=== PATIENT | male | born 1930 | race Caucasian/White ===

== ENCOUNTER 2016-08-16 23:51 | Inpatient (IN) | payer MEDICARE, BC ==
[2016-08-17] MEDS ORDERED: Sodium Chloride 0.9% 1,000 ML IV ONE (00:29)
[2016-08-17] MEDS ORDERED: Ondansetron 4 MG/2 ML SDV IVPUSH ONE (00:29)
[2016-08-17] MEDS ORDERED: Levofloxacin/Dextrose 5%-Water 750 MG in Premix Bag 1 BAG IV ONE (00:35)
--- NOTE | 2016-08-17 00:39 | EDM.PDOC ---
ED HPI GENERAL MEDICAL PROBLEM - General Chief Complaint: Fever Stated Complaint: FEVER Time Seen by Provider: 08/17/16 00:29 - History of Present Illness INITIAL COMMENTS - FREE TEXT/NARRATIVE: HISTORY AND PHYSICAL: History of present illness: Patient 86-year-old white male from [facility] with fever tonight reported up to 106 he said nausea vomiting he denies abdominal pain he' s had a cough denies shortness of breath chest pain he is a poor historian due to advanced age and baseline status patient has extensive past medical history please see nursing notes and detention notes which was reviewed by myself Review of systems: As per history of present illness and below otherwise all systems reviewed and negative. Past medical history: As per history of present illness and as reviewed below otherwise noncontributory. Surgical history: As per history of present illness and as reviewed below otherwise noncontributory. Social history: No reported history of drug or alcohol abuse. Family history: As per history of present illness and as reviewed below otherwise noncontributory. Physical exam: HEENT: Atraumatic, normocephalic, pupils reactive, negative for conjunctival pallor or scleral icterus, mucous membranes moist, throat clear, neck supple, nontender, trachea midline. Lungs: Coarse bilaterally with scattered rhonchi, breath sounds equal bilaterally, chest nontender. Heart: S1S2, regular, negative for clicks, rubs, or JVD. Abdomen: Soft, nondistended, protuberant no localized tenderness. Negative for masses or hepatosplenomegaly. Negative for costovertebral tenderness. Pelvis: Stable nontender. Genitourinary: Deferred. Rectal: Deferred. Extremities: Atraumatic, negative for cords or calf pain. Neurovascular unremarkable. Neuro: Awake, alert, follows commands moves all extremities limited grossly nonfocal exam Diagnostics: CBC CMP PT/INR troponin BMP blood culture x2 UA urine culture lactic acid chest x-ray EKG CT abdomen and pelvis Therapeutics: Normal saline 1 L bolus Levaquin 750 mg IV vancomycin 1 g IV Impression: Over one acute febrile illness rule out sepsis #2 vomiting Definitive disposition and diagnosis as appropriate pending reevaluation and review of above. Generalized Pain Score (Numeric/FACES): 4 - Related Data Allergies Allergy/AdvReac Type Severity Reaction Status Date / Time Iodinated Contrast Media - Allergy Anaphylactic Verified 08/16/16 23:56 Oral and Shock [Iodinated Contrast Media - IV Dye] Penicillins Allergy Anaphylactic Verified 08/16/16 23:56 Shock Home Meds: Home Meds Acetaminophen [Tylenol] 650 mg PO TID 02/26/15 [History] busPIRone HCl [Buspirone HCl] 15 mg PO BID 02/26/15 [History] Bisacodyl 10 mg RC DAILY PRN 05/01/15 [History] Calcium Citrate/Vitamin D3 [Calcium Cit-Vit D 315-200] 1 each PO BID 05/01/15 [ History] Cholecalciferol (Vitamin D3) [D3-2000] 2,000 unit PO DAILY 05/01/15 [History] Docusate Sodium [Colace] 100 mg PO BID 05/01/15 [History] Multivitamin [Daily Dalton] 1 each PO DAILY 05/01/15 [History] Polyethylene Glycol 3350 [MiraLAX] 17 gm PO BID PRN 05/01/15 [History] Lisinopril [Prinivil] 10 mg PO DAILY 06/27/15 [History] Potassium Chloride [Klor-Con M20] 20 meq PO DAILY #5 tab.er 07/05/15 [Rx] Acetaminophen [Tylenol] 650 mg PO Q4H PRN 01/13/16 [History] Citalopram [Celexa] 20 mg PO DAILY 01/13/16 [History] Warfarin [Coumadin] 4 mg PO BEDTIME 01/13/16 [History] traMADol [Ultram] 50 mg PO QID PRN 01/13/16 [History] Alum Hydrox/Mag Hydrox/Simeth [Mag-Al Plus] 15 ml PO QID PRN 08/17/16 [History] Furosemide [Lasix] 1 tab PO DAILY 08/17/16 [History] Past Medical History HEENT History: Reports: Macular degeneration Cardiovascular History: Reports: Afib, Heart Failure, Hypertension Genitourinary History: Reports: Chronic renal insuffiency, Urinary incontinence Other Genitourinary History: stage 3 kidney disease Psychiatric History: Reports: Anxiety Other Oncologic History: kidney ca Other Dermatologic History: parasthesia of skin - Past Surgical History Other Cardiovascular Surgeries/Procedures: coronary stent 2002 Other Neurological Surgeries/Procedures: 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 ED EXAM, GENERAL - Physical Exam Exam: See Below (See dictation) Course - Vital Signs Last Recorded V/S: Last Vital Signs Temp 37.4 C 08/17/16 01:59 Pulse 80 08/17/16 01:59 Resp 17 08/17/16 01:59 BP 125/66 08/17/16 01:59 Pulse Ox 96 08/17/16 01:59 - Orders/Labs/Meds Orders: Active Orders 24 hr Category Date Time Status EKG 12 Lead [EKG Documentation Completion] [RC] STAT Care 08/17/16 00:28 Active Abdomen Pelvis wo Cont [CT] Stat Exams 08/17/16 00:28 Taken Chest 1V Frontal [CR] Stat Exams 08/17/16 00:36 Taken CULTURE BLOOD [BC] Stat Lab 08/17/16 00:30 Received CULTURE BLOOD [BC] Stat Lab 08/17/16 01:25 Received Levofloxacin/Dextrose 5%-Water [Levaquin in D5W 750 MG/ Med 08/17/16 00:35 Active 150 ML] 750 mg Premix Bag 1 bag IV ONETIME Medication Orders Levofloxacin/Dextrose 750 mg/ (Premix) 150 mls @ 100 mls/hr IV ONETIME ONE Stop: 08/17/16 03:04 Last Admin: 08/17/16 01:36 Dose: 100 mls/hr Labs: Laboratory Tests 08/17/16 08/17/16 08/17/16 Range/Units 00:22 00:30 00:30 WBC 13.94 H (4.0-11.0) K/uL RBC 3.78 L (4.50-5.90) M/uL Hgb 11.6 L (13.0-17.0) g/dL Hct 36.2 L (38.0-50.0) % MCV 95.8 (80.0-98.0) fL MCH 30.7 (27.0-32.0) pg MCHC 32.0 (31.0-37.0) g/dL RDW Std Deviation 50.5 (28.0-62.0) fl RDW Coeff of Donovan 14 (11.0-15.0) % Plt Count 190 (150-400) K/uL MPV 9.20 (7.40-12.00) fL Add Manual Diff YES Neutrophils % (Manual) 76 (48.0-80.0) % Band Neutrophils % 17 % Lymphocytes % (Manual) 3 L (16.0-40.0) % Monocytes % (Manual) 4 (0.0-15.0) % Nucleated RBC % 0.0 /100WBC Absolute Seg Neuts 10.6 Band Neutrophils # 2.4 Lymphocytes # (Manual) 0.4 Monocytes # (Manual) 0.6 Nucleated RBCs # 0 K/uL INR (0.86-1.11) Lactate (0.20-2.00) mmol/L Sodium 137 (136-146) mmol/L Potassium 3.9 (3.5-5.1) mmol/L Chloride 101 (98-110) mmol/L Carbon Dioxide 21 (21-31) mmol/L BUN 22 (6.0-23.0) mg/dL Creatinine 1.5 (0.6-1.5) mg/dL Est Cr Clr Drug Dosing TNP Estimated GFR (MDRD) 44.3 ml/min Glucose 161 H (60-110) mg/dL Calcium 9.4 (8.8-10.8) mg/dL Total Bilirubin 1.1 (0.1-1.5) mg/dL AST 21 (5-40) IU/L ALT 13 (8-54) IU/L Alkaline Phosphatase 100 (40-150) CK-MB (CK-2) (0-6.6) ng/ml Troponin I (0.0-0.29) NG/ML B-Natriuretic Peptide (<100) PG/ML Total Protein 7.2 (6.0-8.0) g/dL Albumin 3.8 (3.4-4.8) g/dL Globulin 3.4 (2.0-3.5) g/dL Albumin/Globulin Ratio 1.1 L (1.3-2.8) Urine Color YELLOW Urine Appearance CLEAR Urine pH 5.5 (5.0-8.0) Ur Specific Blandford 1.020 (1.001-1.035) Urine Protein NEGATIVE (NEGATIVE) mg/dL Urine Glucose (UA) NEGATIVE (NEGATIVE) mg/dL Urine Ketones NEGATIVE (NEGATIVE) mg/dL Urine Occult Blood SMALL H (NEGATIVE) Urine Nitrite NEGATIVE (NEGATIVE) Urine Bilirubin NEGATIVE (NEGATIVE) Urine Urobilinogen 0.2 (<2.0) EU/dL Ur Leukocyte Esterase NEGATIVE (NEGATIVE) Urine RBC 1-6 (0-2/HPF) Urine WBC 0-1 (0-5/HPF) Ur Epithelial Cells OCCASIONAL (NONE-FEW) Amorphous Sediment LIGHT (NEGATIVE) Urine Bacteria RARE (NEGATIVE) Urine Mucus LIGHT (NONE-MOD) 08/17/16 08/17/16 08/17/16 Range/Units 00:30 00:30 00:30 WBC (4.0-11.0) K/uL RBC (4.50-5.90) M/uL Hgb (13.0-17.0) g/dL Hct (38.0-50.0) % MCV (80.0-98.0) fL MCH (27.0-32.0) pg MCHC (31.0-37.0) g/dL RDW Std Deviation (28.0-62.0) fl RDW Coeff of Donovan (11.0-15.0) % Plt Count (150-400) K/uL MPV (7.40-12.00) fL Add Manual Diff Neutrophils % (Manual) (48.0-80.0) % Band Neutrophils % % Lymphocytes % (Manual) (16.0-40.0) % Monocytes % (Manual) (0.0-15.0) % Nucleated RBC % /100WBC Absolute Seg Neuts Band Neutrophils # Lymphocytes # (Manual) Monocytes # (Manual) Nucleated RBCs # K/uL INR (0.86-1.11) Lactate 1.6 (0.20-2.00) mmol/L Sodium (136-146) mmol/L Potassium (3.5-5.1) mmol/L Chloride (98-110) mmol/L Carbon Dioxide (21-31) mmol/L BUN (6.0-23.0) mg/dL Creatinine (0.6-1.5) mg/dL Est Cr Clr Drug Dosing Estimated GFR (MDRD) ml/min Glucose (60-110) mg/dL Calcium (8.8-10.8) mg/dL Total Bilirubin (0.1-1.5) mg/dL AST (5-40) IU/L ALT (8-54) IU/L Alkaline Phosphatase (40-150) CK-MB (CK-2) (0-6.6) ng/ml Troponin I < 0.10 (0.0-0.29) NG/ML B-Natriuretic Peptide 346 H (<100) PG/ML Total Protein (6.0-8.0) g/dL Albumin (3.4-4.8) g/dL Globulin (2.0-3.5) g/dL Albumin/Globulin Ratio (1.3-2.8) Urine Color Urine Appearance Urine pH (5.0-8.0) Ur Specific Blandford (1.001-1.035) Urine Protein (NEGATIVE) mg/dL Urine Glucose (UA) (NEGATIVE) mg/dL Urine Ketones (NEGATIVE) mg/dL Urine Occult Blood (NEGATIVE) Urine Nitrite (NEGATIVE) Urine Bilirubin (NEGATIVE) Urine Urobilinogen (<2.0) EU/dL Ur Leukocyte Esterase (NEGATIVE) Urine RBC (0-2/HPF) Urine WBC (0-5/HPF) Ur Epithelial Cells (NONE-FEW) Amorphous Sediment (NEGATIVE) Urine Bacteria (NEGATIVE) Urine Mucus (NONE-MOD) 08/17/16 08/17/16 Range/Units 00:30 01:25 WBC (4.0-11.0) K/uL RBC (4.50-5.90) M/uL Hgb (13.0-17.0) g/dL Hct (38.0-50.0) % MCV (80.0-98.0) fL MCH (27.0-32.0) pg MCHC (31.0-37.0) g/dL RDW Std Deviation (28.0-62.0) fl RDW Coeff of Donovan (11.0-15.0) % Plt Count (150-400) K/uL MPV (7.40-12.00) fL Add Manual Diff Neutrophils % (Manual) (48.0-80.0) % Band Neutrophils % % Lymphocytes % (Manual) (16.0-40.0) % Monocytes % (Manual) (0.0-15.0) % Nucleated RBC % /100WBC Absolute Seg Neuts Band Neutrophils # Lymphocytes # (Manual) Monocytes # (Manual) Nucleated RBCs # K/uL INR 1.50 H (0.86-1.11) Lactate (0.20-2.00) mmol/L Sodium (136-146) mmol/L Potassium (3.5-5.1) mmol/L Chloride (98-110) mmol/L Carbon Dioxide (21-31) mmol/L BUN (6.0-23.0) mg/dL Creatinine (0.6-1.5) mg/dL Est Cr Clr Drug Dosing Estimated GFR (MDRD) ml/min Glucose (60-110) mg/dL Calcium (8.8-10.8) mg/dL Total Bilirubin (0.1-1.5) mg/dL AST (5-40) IU/L ALT (8-54) IU/L Alkaline Phosphatase (40-150) CK-MB (CK-2) 0.4 (0-6.6) ng/ml Troponin I (0.0-0.29) NG/ML B-Natriuretic Peptide (<100) PG/ML Total Protein (6.0-8.0) g/dL Albumin (3.4-4.8) g/dL Globulin (2.0-3.5) g/dL Albumin/Globulin Ratio (1.3-2.8) Urine Color Urine Appearance Urine pH (5.0-8.0) Ur Specific Blandford (1.001-1.035) Urine Protein (NEGATIVE) mg/dL Urine Glucose (UA) (NEGATIVE) mg/dL Urine Ketones (NEGATIVE) mg/dL Urine Occult Blood (NEGATIVE) Urine Nitrite (NEGATIVE) Urine Bilirubin (NEGATIVE) Urine Urobilinogen (<2.0) EU/dL Ur Leukocyte Esterase (NEGATIVE) Urine RBC (0-2/HPF) Urine WBC (0-5/HPF) Ur Epithelial Cells (NONE-FEW) Amorphous Sediment (NEGATIVE) Urine Bacteria (NEGATIVE) Urine Mucus (NONE-MOD) Meds: Medications Generic Name Dose Route Start Last Admin Trade Name Freq PRN Reason Stop Dose Admin Levofloxacin/Dextrose 750 mg/ 150 mls @ 100 mls/hr 08/17/16 00:35 08/17/16 01 :36 Premix IV 08/17/16 03:04 100 mls/hr ONETIME ONE Administration Discontinued Medications Generic Name Dose Route Start Last Admin Trade Name Ceferino PRN Reason Stop Dose Admin Sodium Chloride 1,000 mls @ 999 mls/hr 08/17/16 00:29 08/17/16 00:30 Normal Saline IV 08/17/16 01:29 999 mls/hr .Bolus ONE Administration Vancomycin HCl 1 gm/ Sodium 250 mls @ 250 mls/hr 08/17/16 00:34 08/17/16 00: 40 Chloride IV 08/17/16 01:33 250 mls/hr ONETIME ONE Administration Ondansetron HCl 4 mg 08/17/16 00:29 08/17/16 00:37 Zofran IVPUSH 08/17/16 00:30 4 mg ONETIME ONE Administration Departure - Departure Time of Disposition: 03:14 Disposition: Admitted As Inpatient 65 Condition: good Clinical Impression: Fever Qualifiers: Fever type: other Qualified Code(s): R50.81 - Fever presenting with conditions classified elsewhere Referrals: PCP,Unknown [Primary Care Provider] - Forms: ED Department Discharge - My Orders Last 24 Hours: My Active Orders 08/17/16 00:28 EKG 12 Lead [EKG Documentation Completion] [RC] STAT Abdomen Pelvis wo Cont [CT] Stat 08/17/16 00:30 CULTURE BLOOD [BC] Stat 08/17/16 00:35 Levofloxacin/Dextrose 5%-Water [Levaquin in D5W 750 MG/150 ML] 750 mg Premix Bag 1 bag IV ONETIME 08/17/16 00:36 Chest 1V Frontal [CR] Stat 08/17/16 01:25 CULTURE BLOOD [BC] Stat - Assessment/Plan Last 24 Hours: My Active Orders 08/17/16 00:28 EKG 12 Lead [EKG Documentation Completion] [RC] STAT Abdomen Pelvis wo Cont [CT] Stat 08/17/16 00:30 CULTURE BLOOD [BC] Stat 08/17/16 00:35 Levofloxacin/Dextrose 5%-Water [Levaquin in D5W 750 MG/150 ML] 750 mg Premix Bag 1 bag IV ONETIME 08/17/16 00:36 Chest 1V Frontal [CR] Stat 08/17/16 01:25 CULTURE BLOOD [BC] Stat
[2016-08-17 01:05] LABS: CHLORIDE,CL 101 mmol/L (98-110); SODIUM,NA 137 mmol/L (136-146)
[2016-08-17] MEDS ORDERED: Ondansetron 4 MG/2 ML SDV IVPUSH PRN (04:41)
[2016-08-17] MEDS ORDERED: Albuterol/Ipratropium 3.0-0.5 MG/3 ML Neb Soln NEB PRN (04:47)
[2016-08-17] MEDS: traMADol 50 MG Tab PO SCH ×4 (06:20→23:27)
[2016-08-17] MEDS: Acetaminophen 325 MG Tab PO SCH ×3 (10:17→23:12)
--- NOTE | 2016-08-17 10:35 | PCM.HP ---
H&P History of Present Illness - General Admit Problem/Dx: Admission Diagnosis/Problem Admission Diagnosis/Problem Fever - History of Present Illness Initial Comments - Free Text/Narative: 86 yo male with pmh of CAD, atrial fibrillation, and cholilithiasis. He was hospitalized last year for cholecystitis which was treated conservatively with antibiotics. He presents from [facility] with complaints of nausea, vomiting, chills and fever of 106 degrees Fahrenheit. He denies any abdominal pain, diarrhea, constipation, shortness of breath or chest pain. He was seen in the ED and noted to have atemp of 104. CXR, and UA was unremarkable. WBC 13,[address] L[address] normal. CT abdomen reportedModerate bilateral renal pelvicaliectasis and hydroureter, nonobstructing stones within the left renal pelvis, mild distention of the gallbladder with tiny gallstones, large amount of stool present. Radiologist recommended outpatient MRI for assessment of irregular hypodense lesion in the lower pole of the right kidney. Patient received vancomycin and levaquin in the ED and ED physcian recommended admission to rule out sepsis. Generalized Pain Score (Numeric/FACES): 4 hands Pain Score (Numeric/FACES): 9 - Related Data Allergies/Adverse Reactions: Allergies Allergy/AdvReac Type Severity Reaction Status Date / Time Iodinated Contrast Media - Allergy Anaphylactic Verified 08/16/16 23:56 Oral and Shock [Iodinated Contrast Media - IV Dye] Penicillins Allergy Anaphylactic Verified 08/16/16 23:56 Shock Home Medications: Home Meds Acetaminophen [Tylenol] 650 mg PO TID 02/26/15 [History] busPIRone HCl [Buspirone HCl] 15 mg PO BID 02/26/15 [History] Bisacodyl 10 mg RC DAILY PRN 05/01/15 [History] Calcium Citrate/Vitamin D3 [Calcium Cit-Vit D 315-200] 1 each PO BID 05/01/15 [ History] Cholecalciferol (Vitamin D3) [D3-2000] 2,000 unit PO DAILY 05/01/15 [History] Docusate Sodium [Colace] 100 mg PO BID 05/01/15 [History] Multivitamin [Daily Dalton] 1 each PO DAILY 05/01/15 [History] Polyethylene Glycol 3350 [MiraLAX] 17 gm PO BID PRN 05/01/15 [History] Lisinopril [Prinivil] 10 mg PO DAILY 06/27/15 [History] Acetaminophen [Tylenol] 650 mg PO Q4H PRN 01/13/16 [History] Citalopram [Celexa] 20 mg PO DAILY 01/13/16 [History] Warfarin [Coumadin] 4 mg PO BEDTIME 01/13/16 [History] traMADol [Ultram] 50 mg PO QID 01/13/16 [History] Alum Hydrox/Mag Hydrox/Simeth [Mag-Al Plus] 15 ml PO QID PRN 08/17/16 [History] Furosemide [Lasix] 80 mg PO DAILY 08/17/16 [History] Potassium Chloride [Klor-Con M20] 20 meq PO DAILY 08/18/16 [History] Past Medical History HEENT History: Reports: Macular degeneration Cardiovascular History: Reports: Afib, Heart Failure, Hypertension, Other (see below) Other Cardiovascular History: On Coumadin Respiratory History: Reports: Other (see below) Other Respiratory History: Hx of Acute upper respiratory tract infection Gastrointestinal History: Reports: None Genitourinary History: Reports: Chronic renal insuffiency, Urinary incontinence Other Genitourinary History: stage 3 kidney disease Musculoskeletal History: Reports: Osteoarthritis Neurological History: Reports: None Psychiatric History: Reports: Anxiety Endocrine/Metabolic History: Reports: None Hematologic History: Reports: None Immunologic History: Reports: None Oncologic (Cancer) History: Reports: Bladder Other Oncologic History: kidney ca Other Dermatologic History: parasthesia of skin - Past Surgical History Other Cardiovascular Surgeries/Procedures: coronary stent 2002 GI Surgical History: Reports: None Male Surgical History: Reports: None Endocrine Surgical History: Reports: None Other Neurological Surgeries/Procedures: 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,4,5,6 Musculoskeletal Surgical History: Reports: Hip replacement, Other (see below) Other Musculoskeletal Surgeries/Procedures:: Spinal surgery Oncologic Surgical History: Reports: None Social & Family History - Family History Family Medical History: Noncontributory Cardiac: Reports: Hypertension, [place] - Tobacco Use Smoking Status *Q: Never Smoker Second Hand Smoke Exposure: No - Recreational Drug Use Recreational Drug Use: No H&P Review of Systems - Review of Systems: Review Of Systems: See Below General: Reports: no symptoms HEENT: Reports: no symptoms Pulmonary: Reports: no symptoms Cardiovascular: Reports: no symptoms Gastrointestinal: Reports: No symptoms Genitourinary: Reports: no symptoms Musculoskeletal: Reports: no symptoms Skin: Reports: no symptoms Psychiatric: Reports: no symptoms Neurological: Reports: no symptoms Hematologic/Lymphatic: Reports: no symptoms Immunologic: Reports: no symptoms Exam - Exam Exam: See Below - Vital Signs Vital Signs: Last Vital Signs Temp 38.0 C 08/17/16 07:45 Pulse 88 08/17/16 07:45 Resp 16 08/17/16 07:45 BP 127/64 08/17/16 07:45 Pulse Ox 96 08/17/16 07:45 Weight: 100.5 kg - Exam General: alert, cooperative HEENT: Mucosa moist & pink Neck: supple, trachea midline. No: JVD Lungs: Clear to auscultation, Normal respiratory effort Cardiovascular: regular rate, regular rhythm Abdomen: normal bowel sounds, soft, tenderness (RUQ) Extremities: normal inspection Skin: warm, dry, intact Neurological: cranial nerves intact, normal speech - Patient Data Result Diagrams: 08/18/16 06:58 08/18/16 06:58 *Q Meaningful Use (ADM) - VTE *Q VTE Criteria *Q: - Stroke *Q Stroke Criteria *Q: - AMI *Q AMI Criteria *Q: Problem List Initiated/Reviewed/Updated: Yes Orders Last 24hrs: Active Orders 24 hr Category Date Time Status Antiembolic Devices [RC] PER UNIT ROUTINE Care 08/17/16 10:27 Ordered Intake and Output [RC] QSHIFT Care 08/17/16 10:26 Ordered Oxygen Therapy [RC] PRN Care 08/17/16 10:25 Ordered RT Aerosol Therapy [RC] ASDIRECTED Care 08/17/16 04:48 Active Up With Assistance [RC] ASDIRECTED Care 08/17/16 10:25 Ordered VTE/DVT Education [RC] PER UNIT ROUTINE Care 08/17/16 10:25 Ordered Vital Signs [RC] Q4H Care 08/17/16 10:25 Ordered Clear Liquid Diet [DIET] Diet 08/17/16 Lunch Ordered Regular Diet [DIET] Diet 08/17/16 Breakfast Active Abdomen Ltd [US] Routine Exams 08/17/16 10:24 Ordered CBC WITH AUTO DIFF [HEME] AM Lab 08/18/16 05:11 Ordered CBC WITH AUTO DIFF [HEME] AM Lab 08/19/16 05:11 Ordered COMPREHENSIVE METABOLIC PN,CMP [CHEM] AM Lab 08/18/16 05:11 Ordered COMPREHENSIVE METABOLIC PN,CMP [CHEM] AM Lab 08/19/16 05:11 Ordered CULTURE URINE [RM] Routine Lab 08/17/16 10:22 Uncollected Acetaminophen [Tylenol] Med 08/17/16 04:43 Active 650 mg PO Q4H PRN Acetaminophen [Tylenol] Med 08/17/16 08:00 Active 650 mg PO TID Albuterol/Ipratropium [DuoNeb 3.0-0.5 MG/3 ML] Med 08/17/16 04:47 Active 3 ml NEB Q4HRRT PRN Citalopram [Celexa] Med 08/18/16 09:00 Ordered 20 mg PO DAILY Heparin Sodium Med 08/17/16 21:00 Ordered 5,000 units SUBCUT Q12HR Levofloxacin/Dextrose 5%-Water [Levaquin in D5W 750 MG/ Med 08/18/16 00:30 Ordered 150 ML] 750 mg Premix Bag 1 bag IV Q24H Ondansetron [Zofran] Med 08/17/16 04:41 Active 4 mg IVPUSH Q4H PRN Warfarin Med 08/17/16 21:00 Ordered 4 mg PO BEDTIME metroNIDAZOLE/Normal Saline [Flagyl 500 MG in NS 100 ML Med 08/17/16 12:00 Ordered ] 500 mg Premix Bag 1 bag IV QID traMADol [Ultram] Med 08/17/16 06:00 Active 50 mg PO QID Sequential Compression Device [OM.PC] Per Unit Routine Oth 08/17/16 10:26 Ordered Resuscitation Status Routine Resus Stat 08/17/16 10:25 Ordered Medication Orders Acetaminophen (Tylenol) 650 mg PO TID RUPINDER Last Admin: 08/17/16 10:17 Dose: 650 mg Acetaminophen (Tylenol) 650 mg PO Q4H PRN PRN Reason: Pain/Fever Albuterol/Ipratropium (Duoneb 3.0-0.5 Mg/3 Ml) 3 ml NEB Q4HRRT PRN PRN Reason: Wheezing Last Admin: 08/17/16 05:22 Dose: 3 ml Citalopram Hydrobromide (Celexa) 20 mg PO DAILY RUPINDER Levofloxacin/Dextrose 750 mg/ (Premix) 150 mls @ 100 mls/hr IV Q24H [facility] Metronidazole 500 mg/ Premix 100 mls @ 100 mls/hr IV QID [facility] Non-Formulary Medication (Warfarin) 4 mg PO BEDTIME RUPINDER Ondansetron HCl (Zofran) 4 mg IVPUSH Q4H PRN PRN Reason: Nausea/Vomiting Tramadol HCl (Ultram) 50 mg PO QID [facility] Last Admin: 08/17/16 06:20 Dose: 50 mg Assessment/Plan Comment:: 86 yo male admitted with fevers, nausea, vomiting and RUQ abdominal tenderness. This could be recurrent cholecystitis. Will treat with levaquin and flagyl and obtain RUQ ultrasound. Blood cultures are pending.
[2016-08-17] MEDS: metroNIDAZOLE/Normal Saline 500 MG in Premix Bag 1 BAG IV SCH ×3 (12:54→23:27)
[2016-08-17] MEDS ORDERED: Bisacodyl 10 MG Supp RECTAL PRN (16:15)
[2016-08-17] MEDS ORDERED: Polyethylene Glycol 3350 Powder 17 GM Packet PO PRN (16:15)
[2016-08-17] MEDS: Acetaminophen 325 MG Tab PO PRN (19:28)
[2016-08-17] MEDS: Warfarin 2 MG Tab PO SCH (20:01)
[2016-08-17] MEDS: Docusate Sodium 100 MG Cap PO SCH (20:01)
[2016-08-17] MEDS ORDERED: Heparin Sodium 5,000 Units/ML Vial SUBCUT SCH (21:00)
[2016-08-18] MEDS ORDERED: Levofloxacin/Dextrose 5%-Water 750 MG in Premix Bag 1 BAG IV SCH ×2 (00:30→10:30)
[2016-08-18] MEDS: Acetaminophen 325 MG Tab PO PRN ×2 (03:38→10:00)
[2016-08-18] MEDS: Acetaminophen 325 MG Tab PO SCH ×3 (05:07→21:01)
[2016-08-18] MEDS: traMADol 50 MG Tab PO SCH ×4 (05:33→23:57)
[2016-08-18] MEDS: metroNIDAZOLE/Normal Saline 500 MG in Premix Bag 1 BAG IV SCH ×4 (05:40→23:00)
[2016-08-18] MEDS: Citalopram 20 MG Tab PO SCH (09:08)
[2016-08-18] MEDS: Docusate Sodium 100 MG Cap PO SCH ×2 (09:08→21:01)
--- NOTE | 2016-08-18 10:58 | PCM.PN ---
- General Info Date of Service: 08/18/16 - Review of Systems Systems Review Comment:: denies any fevers, reports chronic upper arm pain, denies any abdominal pain or nausea. - Patient Data Vitals - most recent: Last Vital Signs Temp 37.1 C 08/18/16 08:00 Pulse 65 08/18/16 08:00 Resp 18 08/18/16 08:00 BP 110/64 08/18/16 08:00 Pulse Ox 91 L 08/18/16 08:00 Weight - most recent: 100.5 kg I&O - last 24 hours: Intake & Output 08/17/16 08/18/16 08/18/16 22:59 06:59 14:59 Intake Total 1658 1230 Output Total 407 Balance 1251 1230 Lab Results last 24 hrs: Laboratory Results - last 24 hr 08/18/16 08/18/16 Range/Units 06:58 06:58 WBC 8.68 (4.0-11.0) K/uL RBC 3.07 L (4.50-5.90) M/uL Hgb 9.6 L (13.0-17.0) g/dL Hct 29.6 L (38.0-50.0) % MCV 96.4 (80.0-98.0) fL MCH 31.3 (27.0-32.0) pg MCHC 32.4 (31.0-37.0) g/dL RDW Std Deviation 50.9 (28.0-62.0) fl RDW Coeff of Donovan 15 (11.0-15.0) % Plt Count 157 (150-400) K/uL MPV 9.10 (7.40-12.00) fL Neut % (Auto) 78.3 (48.0-80.0) % Lymph % (Auto) 9.7 L (16.0-40.0) % [place]kin % (Auto) 11.3 (0.0-15.0) % Eos % (Auto) 0.7 (0.0-7.0) % Baso % (Auto) 0.0 (0.0-1.5) % Neut # 6.8 H (1.4-5.7) K/uL Lymph # 0.8 (0.6-2.4) K/uL Pitkin # 1.0 H (0.0-0.8) K/uL Eos # 0.1 (0.0-0.7) K/uL Baso # 0.0 (0.0-0.1) K/uL Nucleated RBC % 0.0 /100WBC Nucleated RBCs # 0 K/uL Sodium 138 (136-146) mmol/L Potassium 4.2 (3.5-5.1) mmol/L Chloride 103 (98-110) mmol/L Carbon Dioxide 27 (21-31) mmol/L BUN 26 H (6.0-23.0) mg/dL Creatinine 1.4 (0.6-1.5) mg/dL Est Cr Clr Drug Dosing 39.43 mL/min Estimated GFR (MDRD) 47.9 ml/min Glucose 100 (60-110) mg/dL Calcium 9.2 (8.8-10.8) mg/dL Total Bilirubin 0.5 (0.1-1.5) mg/dL AST 16 (5-40) IU/L ALT 8 (8-54) IU/L Alkaline Phosphatase 70 (40-150) Total Protein 5.7 L (6.0-8.0) g/dL Albumin 3.0 L (3.4-4.8) g/dL Globulin 2.7 (2.0-3.5) g/dL Albumin/Globulin Ratio 1.1 L (1.3-2.8) Med Orders - Current: Current Medications Acetaminophen (Tylenol) 650 mg PO TID [facility] Last Admin: 08/18/16 05:07 Dose: Not Given Acetaminophen (Tylenol) 650 mg PO Q4H PRN PRN Reason: Pain/Fever Last Admin: 08/18/16 10:00 Dose: 650 mg Albuterol/Ipratropium (Duoneb 3.0-0.5 Mg/3 Ml) 3 ml NEB Q4HRRT PRN PRN Reason: Wheezing Last Admin: 08/17/16 05:22 Dose: 3 ml Bisacodyl (Dulcolax) 10 mg RECTAL DAILY PRN PRN Reason: Constipation Citalopram Hydrobromide (Celexa) 20 mg PO DAILY [facility] Last Admin: 08/18/16 09:08 Dose: 20 mg Docusate Sodium (Colace) 100 mg PO BID [facility] Last Admin: 08/18/16 09:08 Dose: 100 mg Metronidazole 500 mg/ Premix 100 mls @ 100 mls/hr IV QID [facility] Last Admin: 08/18/16 05:40 Dose: 100 mls/hr Vancomycin HCl 1,500 mg/ (Sodium Chloride) 500 mls @ 333.333 mls/hr IV Q12H [facility] Last Admin: 08/18/16 02:24 Dose: 333.333 mls/hr Levofloxacin/Dextrose 750 mg/ (Premix) 150 mls @ 100 mls/hr IV Q48H [facility] Ondansetron HCl (Zofran) 4 mg IVPUSH Q4H PRN PRN Reason: Nausea/Vomiting Polyethylene Glycol (Miralax) 17 gm PO BID PRN PRN Reason: Constipation Tramadol HCl (Ultram) 50 mg PO QID [facility] Last Admin: 08/18/16 05:33 Dose: 50 mg Vancomycin HCl (Pharmacy To Dose - Vancomycin) 1 dose .XX ASDIRECTED [facility] Warfarin Sodium (Coumadin) 4 mg PO BEDTIME [facility] Last Admin: 08/17/16 20:01 Dose: 4 mg Discontinued Medications Heparin Sodium (Porcine) (Heparin Sodium) 5,000 units SUBCUT Q12HR [facility] Sodium Chloride (Normal Saline) 1,000 mls @ 999 mls/hr IV .Bolus ONE Stop: 08/17/16 01:29 Last Admin: 08/17/16 00:30 Dose: 999 mls/hr Levofloxacin/Dextrose 750 mg/ (Premix) 150 mls @ 100 mls/hr IV ONETIME ONE Stop: 08/17/16 03:04 Last Admin: 08/17/16 01:36 Dose: 100 mls/hr Vancomycin HCl 1 gm/ Sodium (Chloride) 250 mls @ 250 mls/hr IV ONETIME ONE Stop: 08/17/16 01:33 Last Admin: 08/17/16 00:40 Dose: 250 mls/hr Levofloxacin/Dextrose 750 mg/ (Premix) 150 mls @ 100 mls/hr IV Q24H [facility] Last Admin: 08/18/16 00:48 Dose: 100 mls/hr Vancomycin HCl 1,250 mg/ (Sodium Chloride) 250 mls @ 166.667 mls/hr IV Q12H [facility] Last Admin: 08/17/16 14:31 Dose: Not Given Ondansetron HCl (Zofran) 4 mg IVPUSH ONETIME ONE Stop: 08/17/16 00:30 Last Admin: 08/17/16 00:37 Dose: 4 mg - Exam General: alert, oriented Lungs: Clear to auscultation, Normal respiratory effort Cardiovascular: regular rate, regular rhythm Abdomen: bowel sounds present, soft, no tenderness, no distension Extremities: no edema Skin: warm, dry, intact Neurological: no new focal deficit - Problem List Review Problem List Initiated/Reviewed/Updated: Yes - My Orders Last 24 Hours: My Active Orders 08/17/16 10:24 Abdomen Ltd [US] Routine 08/17/16 10:25 Oxygen Therapy [RC] PRN Up With Assistance [RC] ASDIRECTED VTE/DVT Education [RC] PER UNIT ROUTINE Vital Signs [RC] Q4H Resuscitation Status Routine 08/17/16 10:26 Intake and Output [RC] QSHIFT Sequential Compression Device [OM.PC] Per Unit Routine 08/17/16 10:27 Antiembolic Devices [RC] PER UNIT ROUTINE 08/17/16 12:00 metroNIDAZOLE/Normal Saline [Flagyl 500 MG in NS 100 ML] 500 mg Premix Bag 1 bag IV QID 08/17/16 12:15 Vancomycin Pharmacy to Dose [Pharmacy to Dose - Vancomycin] 1 dose .XX ASDIRECTED 08/17/16 12:30 Vancomycin 1,500 mg Sodium Chloride 0.9% [Normal Saline] 500 ml IV Q12H 08/17/16 13:10 Communication Order [RC] ROUTINE 08/17/16 16:15 Bisacodyl [Dulcolax] 10 mg RECTAL DAILY PRN Polyethylene Glycol 3350 [MiraLAX] 17 gm PO BID PRN 08/17/16 21:00 Docusate Sodium [Colace] 100 mg PO BID Warfarin [Coumadin] 4 mg PO BEDTIME 08/17/16 Lunch Clear Liquid Diet [DIET] 08/18/16 09:00 Citalopram [Celexa] 20 mg PO DAILY 08/18/16 10:47 Ear Irrigation [RC] ASDIRECTED 08/18/16 23:30 VANCOMYCIN TROUGH [CHEM] Routine 08/19/16 05:11 CBC WITH AUTO DIFF [HEME] AM COMPREHENSIVE METABOLIC PN,CMP [CHEM] AM 08/19/16 05:30 INR,PT,PROTHROMBIN TIME [COAG] DAILY 08/20/16 00:30 Levofloxacin/Dextrose 5%-Water [Levaquin in D5W 750 MG/150 ML] 750 mg Premix Bag 1 bag IV Q48H 08/20/16 05:30 INR,PT,PROTHROMBIN TIME [COAG] DAILY 08/21/16 05:30 INR,PT,PROTHROMBIN TIME [COAG] DAILY 08/22/16 05:30 INR,PT,PROTHROMBIN TIME [COAG] DAILY 08/23/16 05:30 INR,PT,PROTHROMBIN TIME [COAG] DAILY - Plan Plan:: 86 yo male presented with fevers, nausea, vomiting and RUQ abdominal tenderness. Blood cultures are growing gram positive bacteria. Vancomycin started yesterday. Will continue levaquin and flagyl for possible recurrent cholecystitis.
[2016-08-18] MEDS ORDERED: Carbamide Peroxide 6.5% Otic Soln 15 ML Bottle EARBOTH PRN (11:17)
[2016-08-18] MEDS: Warfarin 2 MG Tab PO SCH (21:01)
--- NOTE | 2016-08-18 21:10 | CR ---
EXAM DATE: 08/17/16 PATIENT'S AGE: 86 Patient: JAMES HURD Facility: [place], [place] Site . Site : 1930 Study: XRay Chest [id number]/12/2017 1:10:47 AM Ordering Physician: Stella Parikh Final Report: INDICATION: Shortness of breath TECHNIQUE: Chest radiograph 1 view COMPARISON: 01/12/2016. FINDINGS: Cardiovascular and mediastinum: The heart silhouette is normal in size and morphology. The mediastinum is normal in appearance. Lungs and pleural spaces: Both lungs are unremarkable in appearance. No sign of pleural effusion seen. No pneumothorax is identified. 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 Multiple well circumscribed joint bodies are noted surrounding the right glenohumeral joint without interval change. IMPRESSION: 1. No acute cardiopulmonary disease is seen. Dictated by Paulo Pena MD @ 08/17/2016 1:12:40 AM Dictated by: Paulo Pena MD @ 08/17/2016 01:12:43 (Electronic Signature) Report Signed by Proxy and Original Signed Document filed in the Medical Record. [facility] SYSTEMJazmin
--- NOTE | 2016-08-18 21:11 | CT ---
EXAM DATE: 08/17/16 PATIENT'S AGE: 86 Patient: JAMES HURD Facility: [place], [place] Site . Site : 1930 Study: CT Abdomen/Pelvis [id number]/12/2017 1:16:56 AM Ordering Physician: Stella Parikh Final Report: INDICATION: Fever, vomiting TECHNIQUE: CT abdomen and pelvis without i.v. contrast. Coronal and sagittal reformats were obtained. COMPARISON: 01/12/2016 FINDINGS: Lower chest: Moderate coronary artery atherosclerotic calcifications are noted. Mild ground-glass opacities are present with atelectasis in the lower lobes, likely due to senescent fibrosis. Mild anemia is present with the cardiac chambers appearing lucent with respect to the myocardium. Liver: Unremarkable. Spleen: Unremarkable. Pancreas: Unremarkable. Gallbladder and bile ducts: The gallbladder is distended measuring 5.6 cm in diameter and has tiny layering gallstones seen. Kidneys: There is an irregular hypodense lesion seen in the lower pole of the right kidney that measures 2 cm in diameter. Moderate bilateral renal pelvic caliectasis and mild hydroureter seen. There are tiny dependent, nonobstructing stone seen in the distal left ureter on image 127 and within the dependent left renal pelvis on image 65. Adrenal glands: Unremarkable. GI tract: And large amount of stool is present within the rectal vault. The appendix is normal in appearance and size. Vascular: Unremarkable. Lymph nodes: Unremarkable. Miscellaneous: Unremarkable. No pneumoperitoneum is seen. No significant ascites is noted. Pelvic Organs: Unremarkable. Evaluation of the pelvis is limited by beam hardening artifacts from the patient`s bilateral hip prosthesis. Bones: Moderate levoscoliosis is noted with associated facet arthritis and degenerative disc disease. IMPRESSION: 1. Moderate bilateral renal pelvicaliectasis and hydroureter seen. This may be due to prior obstruction or vesicoureteral reflux. 2. Tiny milk of calcium or layering nonobstructing stones seen within the left renal pelvis and distal left ureter seen. 3. Mild distention of the gallbladder with tiny gallstones noted without interval change. 4. Large amount of stool is present in the rectal vault. Correlation with physical exam recommended to exclude fecal impaction. 5. There is an irregular hypodense lesion in the lower pole of the right kidney. Assessment with outpatient contrast-enhanced CT or MRI is recommended. Dictated by Paulo Pena MD @ 08/17/2016 1:28:56 AM Dictated by: Paulo Pena MD @ 08/17/2016 01:29:00 (Electronic Signature) Report Signed by Proxy and Original Signed Document filed in the Medical Record. MTDJazmin
--- NOTE | 2016-08-18 21:26 | US ---
EXAM DATE: 08/17/16 PATIENT'S AGE: 86 Patient: JAMES HURD Facility: [place], [place] Site . Site : 1930 Study: US Abdomen [id number]/12/2017 1:22:22 PM Ordering Physician: Gutierrez Cordero Final Report: CLINICAL HISTORY: Cholecystitis FINDINGS: The liver is enlarged measuring 17.8 cm. The visualized portions of the pancreas appears normal. Multiple stones and possible sludge within the gallbladder. Negative sonographic Zuniga sign. The gallbladder wall measures 3 mm in thickness. The common bile duct measures 3 mm in size within the alyssa hepatis. right kidney measures 9.8 cm in length . Right moderate hydronephrosis. No obstructing stones can be visualized. IMPRESSION: : 1. Cholelithiasis and possible sludge within the gallbladder. No definite sonographic findings for acute cholecystitis. 2. Moderate right-sided hydronephrosis. 3. Mild hepatomegaly. Dictated by Luciana Drake MD @ Aug 18 2016 8:33AM (Electronic Signature) Report Signed by Proxy and Original Signed Document filed in the Medical Record. MTDD
[2016-08-19] MEDS: traMADol 50 MG Tab PO SCH ×3 (05:40→18:34)
[2016-08-19] MEDS: Acetaminophen 325 MG Tab PO SCH ×3 (05:40→21:44)
[2016-08-19] MEDS: metroNIDAZOLE/Normal Saline 500 MG in Premix Bag 1 BAG IV SCH (05:40)
[2016-08-19] MEDS: Docusate Sodium 100 MG Cap PO SCH ×2 (09:28→21:44)
[2016-08-19] MEDS: Citalopram 20 MG Tab PO SCH (09:28)
--- NOTE | 2016-08-19 11:21 | PCM.PN ---
- Review of Systems Systems Review Comment:: reports cough last night which is improving today, denies fever - Patient Data Vitals - most recent: Last Vital Signs Temp 35.7 C 08/19/16 08:00 Pulse 68 08/19/16 08:00 Resp 22 H 08/19/16 08:00 BP 132/72 08/19/16 08:00 Pulse Ox 98 08/19/16 08:00 Weight - most recent: 100.5 kg I&O - last 24 hours: Intake & Output 08/18/16 08/19/16 08/19/16 22:59 06:59 14:59 Intake Total 700 690 Output Total 223 Balance 477 690 Lab Results last 24 hrs: Laboratory Results - last 24 hr 08/18/16 08/19/16 08/19/16 Range/Units 23:20 04:50 04:50 WBC 6.89 (4.0-11.0) K/uL RBC 3.08 L (4.50-5.90) M/uL Hgb 9.5 L (13.0-17.0) g/dL Hct 29.3 L (38.0-50.0) % MCV 95.1 (80.0-98.0) fL MCH 30.8 (27.0-32.0) pg MCHC 32.4 (31.0-37.0) g/dL RDW Std Deviation 49.2 (28.0-62.0) fl RDW Coeff of Donovan 14 (11.0-15.0) % Plt Count 172 (150-400) K/uL MPV 9.10 (7.40-12.00) fL Neut % (Auto) 72.4 (48.0-80.0) % Lymph % (Auto) 13.8 L (16.0-40.0) % [place] % (Auto) 12.0 (0.0-15.0) % Eos % (Auto) 1.7 (0.0-7.0) % Baso % (Auto) 0.1 (0.0-1.5) % Neut # 5.0 (1.4-5.7) K/uL Lymph # 1.0 (0.6-2.4) K/uL [place] # 0.8 (0.0-0.8) K/uL Eos # 0.1 (0.0-0.7) K/uL Baso # 0.0 (0.0-0.1) K/uL Nucleated RBC % 0.0 /100WBC Nucleated RBCs # 0 K/uL INR (0.86-1.11) Sodium 140 (136-146) mmol/L Potassium 3.8 (3.5-5.1) mmol/L Chloride 106 (98-110) mmol/L Carbon Dioxide 26 (21-31) mmol/L BUN 24 H (6.0-23.0) mg/dL Creatinine 1.3 (0.6-1.5) mg/dL Est Cr Clr Drug Dosing 42.46 mL/min Estimated GFR (MDRD) 52.2 ml/min Glucose 102 (60-110) mg/dL Calcium 8.7 L (8.8-10.8) mg/dL Total Bilirubin 0.5 (0.1-1.5) mg/dL AST 14 (5-40) IU/L ALT 8 (8-54) IU/L Alkaline Phosphatase 66 (40-150) Total Protein 5.2 L (6.0-8.0) g/dL Albumin 3.0 L (3.4-4.8) g/dL Globulin 2.2 (2.0-3.5) g/dL Albumin/Globulin Ratio 1.4 (1.3-2.8) Vancomycin Trough 30.9 H (5-15) ug/mL 08/19/16 Range/Units 04:50 WBC (4.0-11.0) K/uL RBC (4.50-5.90) M/uL Hgb (13.0-17.0) g/dL Hct (38.0-50.0) % MCV (80.0-98.0) fL MCH (27.0-32.0) pg MCHC (31.0-37.0) g/dL RDW Std Deviation (28.0-62.0) fl RDW Coeff of Donovan (11.0-15.0) % Plt Count (150-400) K/uL MPV (7.40-12.00) fL Neut % (Auto) (48.0-80.0) % Lymph % (Auto) (16.0-40.0) % [place]imer % (Auto) (0.0-15.0) % Eos % (Auto) (0.0-7.0) % Baso % (Auto) (0.0-1.5) % Neut # (1.4-5.7) K/uL Lymph # (0.6-2.4) K/uL [place]imer # (0.0-0.8) K/uL Eos # (0.0-0.7) K/uL Baso # (0.0-0.1) K/uL Nucleated RBC % /100WBC Nucleated RBCs # K/uL INR 2.73 H (0.86-1.11) Sodium (136-146) mmol/L Potassium (3.5-5.1) mmol/L Chloride (98-110) mmol/L Carbon Dioxide (21-31) mmol/L BUN (6.0-23.0) mg/dL Creatinine (0.6-1.5) mg/dL Est Cr Clr Drug Dosing mL/min Estimated GFR (MDRD) ml/min Glucose (60-110) mg/dL Calcium (8.8-10.8) mg/dL Total Bilirubin (0.1-1.5) mg/dL AST (5-40) IU/L ALT (8-54) IU/L Alkaline Phosphatase (40-150) Total Protein (6.0-8.0) g/dL Albumin (3.4-4.8) g/dL Globulin (2.0-3.5) g/dL Albumin/Globulin Ratio (1.3-2.8) Vancomycin Trough (5-15) ug/mL Med Orders - Current: Current Medications Acetaminophen (Tylenol) 650 mg PO TID [facility] Last Admin: 08/19/16 05:40 Dose: 650 mg Acetaminophen (Tylenol) 650 mg PO Q4H PRN PRN Reason: Pain/Fever Last Admin: 08/18/16 10:00 Dose: 650 mg Albuterol/Ipratropium (Duoneb 3.0-0.5 Mg/3 Ml) 3 ml NEB Q4HRRT PRN PRN Reason: Wheezing Last Admin: 08/17/16 05:22 Dose: 3 ml Bisacodyl (Dulcolax) 10 mg RECTAL DAILY PRN PRN Reason: Constipation Carbamide Perox/Anhydrous Glycerin (Debrox 6.5% Otic Soln) 1 ml EARBOTH BID PRN PRN Reason: earwax Last Admin: 08/18/16 12:28 Dose: 2 drop Citalopram Hydrobromide (Celexa) 20 mg PO DAILY [facility] Last Admin: 08/19/16 09:28 Dose: 20 mg Docusate Sodium (Colace) 100 mg PO BID [facility] Last Admin: 08/19/16 09:28 Dose: 100 mg Vancomycin HCl 1,500 mg/ (Sodium Chloride) 500 mls @ 333.333 mls/hr IV Q24H [facility] Ondansetron HCl (Zofran) 4 mg IVPUSH Q4H PRN PRN Reason: Nausea/Vomiting Polyethylene Glycol (Miralax) 17 gm PO BID PRN PRN Reason: Constipation Tramadol HCl (Ultram) 50 mg PO QID [facility] Last Admin: 08/19/16 05:40 Dose: 50 mg Vancomycin HCl (Pharmacy To Dose - Vancomycin) 1 dose .XX ASDIRECTED [facility] Warfarin Sodium (Coumadin Ask) 1 each PO DAILY@1400 [facility] Discontinued Medications Heparin Sodium (Porcine) (Heparin Sodium) 5,000 units SUBCUT Q12HR [facility] Sodium Chloride (Normal Saline) 1,000 mls @ 999 mls/hr IV .Bolus ONE Stop: 08/17/16 01:29 Last Admin: 08/17/16 00:30 Dose: 999 mls/hr Levofloxacin/Dextrose 750 mg/ (Premix) 150 mls @ 100 mls/hr IV ONETIME ONE Stop: 08/17/16 03:04 Last Admin: 08/17/16 01:36 Dose: 100 mls/hr Vancomycin HCl 1 gm/ Sodium (Chloride) 250 mls @ 250 mls/hr IV ONETIME ONE Stop: 08/17/16 01:33 Last Admin: 08/17/16 00:40 Dose: 250 mls/hr Levofloxacin/Dextrose 750 mg/ (Premix) 150 mls @ 100 mls/hr IV Q24H [facility] Last Admin: 08/18/16 00:48 Dose: 100 mls/hr Metronidazole 500 mg/ Premix 100 mls @ 100 mls/hr IV QID [facility] Last Admin: 08/19/16 05:40 Dose: 100 mls/hr Vancomycin HCl 1,250 mg/ (Sodium Chloride) 250 mls @ 166.667 mls/hr IV Q12H [facility] Last Admin: 08/17/16 14:31 Dose: Not Given Vancomycin HCl 1,500 mg/ (Sodium Chloride) 500 mls @ 333.333 mls/hr IV Q12H [facility] Last Admin: 08/18/16 12:27 Dose: 333.333 mls/hr Levofloxacin/Dextrose 750 mg/ (Premix) 150 mls @ 100 mls/hr IV Q48H [facility] Ondansetron HCl (Zofran) 4 mg IVPUSH ONETIME ONE Stop: 08/17/16 00:30 Last Admin: 08/17/16 00:37 Dose: 4 mg Warfarin Sodium (Coumadin) 4 mg PO BEDTIME [facility] Last Admin: 08/18/16 21:01 Dose: 4 mg - Exam General: alert, oriented Lungs: Clear to auscultation, Normal respiratory effort Cardiovascular: Regular Rate, Regular Rhythm Extremities: no edema Skin: warm, dry, intact - Problem List Review Problem List Initiated/Reviewed/Updated: Yes - My Orders Last 24 Hours: My Active Orders 08/18/16 10:47 Ear Irrigation [RC] ASDIRECTED 08/18/16 11:17 Carbamide Peroxide [Debrox 6.5% Otic Soln] 1 ml EARBOTH BID PRN 08/18/16 11:24 Blood Culture x2 Reflex Set [OM.PC] Stat 08/18/16 11:51 CULTURE BLOOD [BC] Stat 08/18/16 12:02 CULTURE BLOOD [BC] Stat 08/19/16 10:58 Chest wo Cont [CT] Routine Echo 2D wo Cont [US] Routine 08/19/16 11:00 PICC Line Insertion [CR] Routine 08/19/16 12:30 Vancomycin 1,500 mg Sodium Chloride 0.9% [Normal Saline] 500 ml IV Q24H 08/19/16 14:00 Warfarin Dosing [Coumadin Ask] 1 each PO DAILY@1400 08/19/16 Breakfast Regular Diet [DIET] 08/20/16 05:30 INR,PT,PROTHROMBIN TIME [COAG] DAILY 08/21/16 05:30 INR,PT,PROTHROMBIN TIME [COAG] DAILY 08/21/16 11:30 VANCOMYCIN TROUGH [CHEM] Routine 08/22/16 05:30 INR,PT,PROTHROMBIN TIME [COAG] DAILY 08/23/16 05:30 INR,PT,PROTHROMBIN TIME [COAG] DAILY - Plan Plan:: 86 yo male with GBS bacteremia with no obvious source. U/S does not suggest cholecystitis. Will check CT chest and echocardiogram. Patient has penicillin allergy so will likely give vancomycin for two weeks. PICC line ordered.
--- NOTE | 2016-08-19 16:56 | CT ---
EXAMINATION: CT chest without contrast HISTORY: Cough COMPARISON: CT abdomen dated 08/17/2016. TECHNIQUE: Axial CT images obtained through the chest without contrast. Coronal and sagittal reconst ructions obtained. FINDINGS: There is mild atelectasis and/or infiltrate noted within the lung bases with trace bilater al pleural effusions. No pneumothorax. No mediastinal lymphadenopathy or hilar fullness. The heart i s normal in size without a pericardial effusion. Aortic and coronary artery calcifications are prese nt. No axillary lymphadenopathy. The thoracic aorta is normal in caliber. The central airways are cl ear. Cholelithiasis without evidence of cholecystitis. Stable bilateral pyelocaliectasis. Advanced degenerative changes are noted within the shoulders bilaterally. No suspicious osseous abno rmalities identified. IMPRESSION: 1. Mild bibasilar atelectasis and/or infiltrate. Trace bilateral pleural effusions also noted. 2. Cholelithiasis without evidence cholecystitis. 3. Advanced osteoarthritic changes within the shoulders bilaterally. 4. Stable bilateral pyelocaliectasis.
[2016-08-20] MEDS: traMADol 50 MG Tab PO SCH ×5 (00:03→23:42)
[2016-08-20] MEDS ORDERED: Levofloxacin/Dextrose 5%-Water 750 MG in Premix Bag 1 BAG IV SCH (00:30)
[2016-08-20] MEDS: Acetaminophen 325 MG Tab PO SCH ×3 (06:03→21:52)
[2016-08-20] MEDS: Docusate Sodium 100 MG Cap PO SCH ×2 (08:34→20:10)
[2016-08-20] MEDS: Citalopram 20 MG Tab PO SCH (08:34)
--- NOTE | 2016-08-20 09:54 | PCM.PN ---
- General Info Date of Service: 08/20/16 Admission Dx/Problem (Free Text): Admission Diagnosis/Problem Admission Diagnosis/Problem Fever Functional Status: Reports: pain controlled, tolerating diet - Review of Systems General: Reports: Fatigue. Denies: Fever, Weakness, Malaise HEENT: Denies: headaches, sinus congestion Pulmonary: Denies: shortness of breath, pleuritic chest pain, hemoptysis, wheezing Cardiovascular: Reports: Edema (chronic). Denies: Chest Pain, Palpitations Gastrointestinal: Denies: Abdominal pain, Constipation, Hematochezia, Melena Genitourinary: Denies: dysuria, hematuria Musculoskeletal: Denies: neck pain, leg pain, foot pain Skin: Denies: cyanosis Neurological: Denies: Confusion, Dizziness, Headache - Patient Data Vitals - most recent: Last Vital Signs Temp 37.3 C 08/20/16 04:00 Pulse 60 08/20/16 04:00 Resp 18 08/20/16 04:00 BP 135/75 08/20/16 04:00 Pulse Ox 96 08/20/16 04:00 Weight - most recent: 100.5 kg I&O - last 24 hours: Intake & Output 08/19/16 08/20/16 08/20/16 22:59 06:59 14:59 Intake Total 1000 270 Balance 1000 270 Lab Results last 24 hrs: Laboratory Results - last 24 hr 08/19/16 08/20/16 08/20/16 Range/Units 11:02 04:50 04:50 WBC 5.72 (4.0-11.0) K/uL RBC 3.19 L (4.50-5.90) M/uL Hgb 9.8 L (13.0-17.0) g/dL Hct 30.4 L (38.0-50.0) % MCV 95.3 (80.0-98.0) fL MCH 30.7 (27.0-32.0) pg MCHC 32.2 (31.0-37.0) g/dL RDW Std Deviation 49.1 (28.0-62.0) fl RDW Coeff of Donovan 14 (11.0-15.0) % Plt Count 191 (150-400) K/uL MPV 9.20 (7.40-12.00) fL Neut % (Auto) 68.8 (48.0-80.0) % Lymph % (Auto) 18.2 (16.0-40.0) % [place] % (Auto) 10.7 (0.0-15.0) % Eos % (Auto) 2.3 (0.0-7.0) % Baso % (Auto) 0.0 (0.0-1.5) % Neut # 3.9 (1.4-5.7) K/uL Lymph # 1.0 (0.6-2.4) K/uL [place] # 0.6 (0.0-0.8) K/uL Eos # 0.1 (0.0-0.7) K/uL Baso # 0.0 (0.0-0.1) K/uL Nucleated RBC % 0.0 /100WBC Nucleated RBCs # 0 K/uL INR 2.64 H (0.86-1.11) Sodium (136-146) mmol/L Potassium (3.5-5.1) mmol/L Chloride (98-110) mmol/L Carbon Dioxide (21-31) mmol/L BUN (6.0-23.0) mg/dL Creatinine (0.6-1.5) mg/dL Est Cr Clr Drug Dosing mL/min Estimated GFR (MDRD) ml/min Glucose (60-110) mg/dL Calcium (8.8-10.8) mg/dL Vancomycin Trough 26.4 H (5-15) ug/mL 08/20/ Range/Units 04:50 WBC (4.0-11.0) K/uL RBC (4.50-5.90) M/uL Hgb (13.0-17.0) g/dL Hct (38.0-50.0) % MCV (80.0-98.0) fL MCH (27.0-32.0) pg MCHC (31.0-37.0) g/dL RDW Std Deviation (28.0-62.0) fl RDW Coeff of Donovan (11.0-15.0) % Plt Count (150-400) K/uL MPV (7.40-12.00) fL Neut % (Auto) (48.0-80.0) % Lymph % (Auto) (16.0-40.0) % [place] % (Auto) (0.0-15.0) % Eos % (Auto) (0.0-7.0) % Baso % (Auto) (0.0-1.5) % Neut # (1.4-5.7) K/uL Lymph # (0.6-2.4) K/uL [place] # (0.0-0.8) K/uL Eos # (0.0-0.7) K/uL Baso # (0.0-0.1) K/uL Nucleated RBC % /100WBC Nucleated RBCs # K/uL INR (0.86-1.11) Sodium 141 (136-146) mmol/L Potassium 3.6 (3.5-5.1) mmol/L Chloride 107 (98-110) mmol/L Carbon Dioxide 25 (21-31) mmol/L BUN 22 (6.0-23.0) mg/dL Creatinine 1.3 (0.6-1.5) mg/dL Est Cr Clr Drug Dosing 42.46 mL/min Estimated GFR (MDRD) 52.2 ml/min Glucose 133 H (60-110) mg/dL Calcium 8.5 L (8.8-10.8) mg/dL Vancomycin Trough (5-15) ug/mL Manuel Results last 24 hrs: Microbiology 08/18/16 12:02 Aerobic Blood Culture - Preliminary Blood - Venous - Lab Draw NO GROWTH AFTER 1 DAY Anaerobic Blood Culture - Preliminary NO GROWTH AFTER 1 DAY 08/18/16 11:51 Aerobic Blood Culture - Preliminary Blood - Venous NO GROWTH AFTER 1 DAY Anaerobic Blood Culture - Preliminary NO GROWTH AFTER 1 DAY Med Orders - Current: Current Medications Acetaminophen (Tylenol) 650 mg PO TID [facility] Last Admin: 08/20/16 06:03 Dose: 650 mg Acetaminophen (Tylenol) 650 mg PO Q4H PRN PRN Reason: Pain/Fever Last Admin: 08/18/16 10:00 Dose: 650 mg Albuterol/Ipratropium (Duoneb 3.0-0.5 Mg/3 Ml) 3 ml NEB Q4HRRT PRN PRN Reason: Wheezing Last Admin: 08/17/16 05:22 Dose: 3 ml Bisacodyl (Dulcolax) 10 mg RECTAL DAILY PRN PRN Reason: Constipation Carbamide Perox/Anhydrous Glycerin (Debrox 6.5% Otic Soln) 1 ml EARBOTH BID PRN PRN Reason: earwax Last Admin: 08/18/16 12:28 Dose: 2 drop Citalopram Hydrobromide (Celexa) 20 mg PO DAILY [facility] Last Admin: 08/20/16 08:34 Dose: 20 mg Docusate Sodium (Colace) 100 mg PO BID [facility] Last Admin: 08/20/16 08:34 Dose: 100 mg Vancomycin HCl 1,500 mg/ (Sodium Chloride) 500 mls @ 333.333 mls/hr IV Q24H [facility] Last Admin: 08/19/16 17:20 Dose: 333.333 mls/hr Ondansetron HCl (Zofran) 4 mg IVPUSH Q4H PRN PRN Reason: Nausea/Vomiting Polyethylene Glycol (Miralax) 17 gm PO BID PRN PRN Reason: Constipation Tramadol HCl (Ultram) 50 mg PO QID [facility] Last Admin: 08/20/16 06:02 Dose: 50 mg Vancomycin HCl (Pharmacy To Dose - Vancomycin) 1 dose .XX ASDIRECTED [facility] Warfarin Sodium (Coumadin Ask) 1 each PO DAILY@1400 [facility] Last Admin: 08/19/16 13:15 Dose: Not Given Warfarin Sodium (Coumadin) 4 mg PO DAILY@1400 [facility] Discontinued Medications Heparin Sodium (Porcine) (Heparin Sodium) 5,000 units SUBCUT Q12HR [facility] Sodium Chloride (Normal Saline) 1,000 mls @ 999 mls/hr IV .Bolus ONE Stop: 08/17/16 01:29 Last Admin: 08/17/16 00:30 Dose: 999 mls/hr Levofloxacin/Dextrose 750 mg/ (Premix) 150 mls @ 100 mls/hr IV ONETIME ONE Stop: 08/17/16 03:04 Last Admin: 08/17/16 01:36 Dose: 100 mls/hr Vancomycin HCl 1 gm/ Sodium (Chloride) 250 mls @ 250 mls/hr IV ONETIME ONE Stop: 08/17/16 01:33 Last Admin: 08/17/16 00:40 Dose: 250 mls/hr Levofloxacin/Dextrose 750 mg/ (Premix) 150 mls @ 100 mls/hr IV Q24H [facility] Last Admin: 08/18/16 00:48 Dose: 100 mls/hr Metronidazole 500 mg/ Premix 100 mls @ 100 mls/hr IV QID [facility] Last Admin: 08/19/16 05:40 Dose: 100 mls/hr Vancomycin HCl 1,250 mg/ (Sodium Chloride) 250 mls @ 166.667 mls/hr IV Q12H [facility] Last Admin: 08/17/16 14:31 Dose: Not Given Vancomycin HCl 1,500 mg/ (Sodium Chloride) 500 mls @ 333.333 mls/hr IV Q12H [facility] Last Admin: 08/18/16 12:27 Dose: 333.333 mls/hr Levofloxacin/Dextrose 750 mg/ (Premix) 150 mls @ 100 mls/hr IV Q48H [facility] Vancomycin HCl 1,500 mg/ (Sodium Chloride) 500 mls @ 333.333 mls/hr IV Q24H [facility] Last Admin: 08/19/16 13:15 Dose: Not Given Ondansetron HCl (Zofran) 4 mg IVPUSH ONETIME ONE Stop: 08/17/16 00:30 Last Admin: 08/17/16 00:37 Dose: 4 mg Warfarin Sodium (Coumadin) 4 mg PO BEDTIME [facility] Last Admin: 08/18/16 21:01 Dose: 4 mg - Exam Quality Assessment: supplemental oxygen, DVT prophylaxis General: alert, oriented, cooperative, no acute distress HEENT: Pupils equal, Pupils reactive, EOMI, Mucous membr. moist/pink Neck: supple Lungs: Clear to auscultation, Normal respiratory effort Cardiovascular: Regular Rate, Regular Rhythm Abdomen: bowel sounds present, soft, no tenderness, no distension Extremities: normal pulses, no tenderness/swelling, edema Peripheral Pulses: 2+: radial (L), radial (R), posterior tibial (L), posterior tibial (R), dorsalis pedis (L), dorsalis pedis (R) Skin: warm, dry, intact Psy/Mental Status: alert, normal affect, normal mood - Problem List & Annotations (1) Bacteremia due to group B Streptococcus SNOMED Code(s): 639935317706, 417249196125 Code(s): R78.81 - BACTEREMIA Status: Acute Priority: High Current Visit : Yes - Problem List Review Problem List Initiated/Reviewed/Updated: Yes - Plan Plan:: 86 yo male admitted for fever and leukocytosis found to have GBS bacteremia with no clear source and pmh of CAD, A-fib, and cholithiasis GBS bacteremia: Patient WBC has been within normal rage since 08/17. PICC line was placed yesterday for IV Vancomycin once sent back to [place]. Still no source of infection found. Patient has had similar infection in the past. Will treat with 2 weeks of Vancomycin secondaryt to this and the patient's allergy to penicillin. CT of chest and echocardiogram pending. Talked with social work who states that most likely will not be able to get to [place] until tomorrow.
[2016-08-20] MEDS ORDERED: Warfarin 2 MG Tab PO SCH (14:00)
[2016-08-21] MEDS: traMADol 50 MG Tab PO SCH (05:55)
[2016-08-21] MEDS: Acetaminophen 325 MG Tab PO SCH (05:55)
[2016-08-21 08:57] VITALS: BP 160/91
[2016-08-21] MEDS ORDERED: Lisinopril 10 MG Tab PO SCH (09:00)
[2016-08-21] MEDS: Docusate Sodium 100 MG Cap PO SCH (09:00)
[2016-08-21] MEDS: Citalopram 20 MG Tab PO SCH (09:00)
[2016-08-21] MEDS ORDERED: Furosemide 80 MG Tab PO SCH (09:00)
--- NOTE | 2016-08-21 11:41 | US ---
EXAMINATION: Fluoro and ultrasound guided right-sided PICC line placement. HISTORY: Long-term antibiotics. TECHNIQUE/FINDINGS: After written informed consent was obtained from the patient using ultrasound a nd Fluoro guidance under aseptic conditions utilizing 1% lidocaine as local anesthesia right cephali c vein was accessed and a 5 [place] dual lumen PICC catheter was deployed with its tip in the distal superior vena cava. The catheter flushes and withdraws blood well. The catheter is flushed with the diluted heparin. The catheter secured well. IMPRESSION: Successful Fluoro and ultrasound guided PICC line placement.
--- NOTE | 2016-08-21 13:30 | PCM.DCSUM1 ---
Discharge Summary - Hospital Course Brief History: 86 yo male with pmh of CAD, atrial fibrillation, and cholilithiasis. He was hospitalized last year for cholecystitis which was treated conservatively with antibiotics. He presents from [place] with complaints of nausea, vomiting, chills and fever of 106 degrees Fahrenheit. He denies any abdominal pain, diarrhea, constipation, shortness of breath or chest pain. He was seen in the ED and noted to have atemp of 104. CXR, and UA was unremarkable. WBC 13,[address] L[address] were normal. CT abdomen reported Moderate bilateral renal pelvicaliectasis and hydroureter, nonobstructing stones within the left renal pelvis, mild distention of the gallbladder with tiny gallstones, large amount of stool present. Radiologist recommended outpatient MRI for assessment of irregular hypodense lesion in the lower pole of the right kidney. Patient received vancomycin and levaquin in the ED and ED physcian recommended admission to rule out sepsis. - Discharge Data Discharge Date: 08/21/16 Discharge Disposition: DC/Tfer to [facility] 03 Condition: Good - Patient Instructions Diet: Regular Diet as Tolerated Activity: As Tolerated Other/Special Instructions: PICC Line cares, dressing change to PICC line Q 7 days or sooner if soiled. Vanco trough 08/22 30 minutes prior to dose. Obtain INR at same time. Results to PCP. - Discharge Plan Prescriptions/Med Rec: Vancomycin [Vancocin] 1 gm IV Q24H #14 adv traMADol [Ultram] 50 mg PO QID #30 tablet Home Medications: Home Meds Acetaminophen [Tylenol] 650 mg PO TID 02/26/15 [History] busPIRone HCl [Buspirone HCl] 15 mg PO BID 02/26/15 [History] Bisacodyl 10 mg RC DAILY PRN 05/01/15 [History] Calcium Citrate/Vitamin D3 [Calcium Cit-Vit D 315-200] 1 each PO BID 05/01/15 [ History] Cholecalciferol (Vitamin D3) [D3-2000] 2,000 unit PO DAILY 05/01/15 [History] Docusate Sodium [Colace] 100 mg PO BID 05/01/15 [History] Multivitamin [Daily Dalton] 1 each PO DAILY 05/01/15 [History] Polyethylene Glycol 3350 [MiraLAX] 17 gm PO BID PRN 05/01/15 [History] Lisinopril [Prinivil] 10 mg PO DAILY 06/27/15 [History] Acetaminophen [Tylenol] 650 mg PO Q4H PRN 01/13/16 [History] Citalopram [Celexa] 20 mg PO DAILY 01/13/16 [History] Warfarin [Coumadin] 4 mg PO BEDTIME 01/13/16 [History] Alum Hydrox/Mag Hydrox/Simeth [Mag-Al Plus] 15 ml PO QID PRN 08/17/16 [History] Furosemide [Lasix] 80 mg PO DAILY 08/17/16 [History] Potassium Chloride [Klor-Con M20] 20 meq PO DAILY 08/18/16 [History] Vancomycin [Vancocin] 1 gm IV Q24H #14 adv 08/21/16 [Rx] traMADol [Ultram] 50 mg PO QID #30 tablet 08/21/16 [Rx] Patient Handouts: Tramadol tablets, Vancomycin injection, Bacteremia Referrals: Jovi Benito MD [Physician] - 08/28/16 8:00 am (Next [place] rounds.) - Discharge Summary/Plan Comment DC Time >30 min.: No Discharge Summary/Plan Comment: Discharge Diagnoses: Bacteremia- source unknown Afib CHF HTN CKD Osteoarthritis Chronic anticoagulation Ozzie was admitted and treated with Levaquin and FLagyl initially with thoughts this could be recurrent cholecystitis. RUQ abdominal US completed with showed cholelithiasis and possible sludge within the gallbladder, no definite findings of cholecystitis, moderate R hydronephrosis and mild hepatomegaly. BC returned with gram positive bacteria, Vancomycin was added to treatment plan. There was some report of cough, so chest CT and ECHO was completed to further evaluate source of bacteremia. Chest CT revealed mild bibasilar atelectaisi with trace bilateral pleural effusions, cholithiasis without evidence of cholescyctitis. ECHo revealed EF of 30-35%, global and moderatly decreased LV systolic function. No definite vegetations seen. BC grew out Group B strep, due to PCN allergy it was decided to continue with Vancomycin and to continue with coverage for 2 weeks. PICC line was placed per Dr Carrillo in Radiology. No source of infection found. Attempted to notify PCP, Dr Benito today, will attempt to call in am as well. WBC has improved since admission and has remain stable since , today 5,720. INR 1.9 Will draw Vanco trough and INR on August 22. Continue all home medications as previously ordered. Will transfer back to [place] today. Patient and family agree with plan of care. - General Info Date of Service: 08/21/16 Admission Dx/Problem (Free Text: Admission Diagnosis/Problem Admission Diagnosis/Problem Fever Subjective Update: Doing well today. No complaints. No chest pain or SOB. Ready to be back [place] [facility]. Daughter at bedside. Functional Status: Reports: pain controlled, tolerating diet, urinating - Review of Systems General: Reports: No Symptoms, Weakness. Denies: Fever, Malaise HEENT: Reports: no symptoms. Denies: headaches, sinus congestion Pulmonary: Reports: no symptoms. Denies: shortness of breath, cough, sputum Cardiovascular: Reports: Edema. Denies: Chest Pain, Palpitations Gastrointestinal: Reports: No symptoms. Denies: Abdominal pain, Nausea, Vomiting Genitourinary: Reports: no symptoms. Denies: dysuria, frequency Musculoskeletal: Reports: no symptoms. Denies: neck pain, leg pain Skin: Reports: no symptoms Neurological: Reports: No Symptoms - Patient Data Vitals - Most Recent: Last Vital Signs Temp 98.4 F 08/21/16 08:00 Pulse 72 08/21/16 08:00 Resp 18 08/21/16 08:00 BP 160/91 H 08/21/16 09:00 Pulse Ox 93 L 08/21/16 08:00 Weight - Most Recent: 100.5 kg I&O - Last 24 hours: Intake & Output 08/20/16 08/21/16 08/21/16 22:59 06:59 14:59 Intake Total 830 300 380 Output Total 191 450 100 Balance 639 -150 280 Lab Results - Last 24 hrs: Laboratory Results - last 24 hr 08/21/16 Range/Units 05:07 INR 1.99 H (0.86-1.11) PATY Results - Last 24 hrs: Microbiology 08/18/16 12:02 Aerobic Blood Culture - Preliminary Blood - Venous - Lab Draw NO GROWTH AFTER 3 DAYS Anaerobic Blood Culture - Preliminary NO GROWTH AFTER 3 DAYS 08/18/16 11:51 Aerobic Blood Culture - Preliminary Blood - Venous NO GROWTH AFTER 3 DAYS Anaerobic Blood Culture - Preliminary NO GROWTH AFTER 3 DAYS Med Orders - Current: Current Medications Discontinued Medications Acetaminophen (Tylenol) 650 mg PO TID [facility] Last Admin: 08/21/16 05:55 Dose: 650 mg Acetaminophen (Tylenol) 650 mg PO Q4H PRN PRN Reason: Pain/Fever Last Admin: 08/18/16 10:00 Dose: 650 mg Albuterol/Ipratropium (Duoneb 3.0-0.5 Mg/3 Ml) 3 ml NEB Q4HRRT PRN PRN Reason: Wheezing Last Admin: 08/17/16 05:22 Dose: 3 ml Bisacodyl (Dulcolax) 10 mg RECTAL DAILY PRN PRN Reason: Constipation Carbamide Perox/Anhydrous Glycerin (Debrox 6.5% Otic Soln) 1 ml EARBOTH BID PRN PRN Reason: earwax Last Admin: 08/18/16 12:28 Dose: 2 drop Citalopram Hydrobromide (Celexa) 20 mg PO DAILY [facility] Last Admin: 08/21/16 09:00 Dose: 20 mg Docusate Sodium (Colace) 100 mg PO BID [facility] Last Admin: 08/21/16 09:00 Dose: 100 mg Furosemide (Lasix) 80 mg PO DAILY [facility] Last Admin: 08/21/16 09:00 Dose: 80 mg Heparin Sodium (Porcine) (Heparin Sodium) 5,000 units SUBCUT Q12HR [facility] Sodium Chloride (Normal Saline) 1,000 mls @ 999 mls/hr IV .Bolus ONE Stop: 08/17/16 01:29 Last Admin: 08/17/16 00:30 Dose: 999 mls/hr Levofloxacin/Dextrose 750 mg/ (Premix) 150 mls @ 100 mls/hr IV ONETIME ONE Stop: 08/17/16 03:04 Last Admin: 08/17/16 01:36 Dose: 100 mls/hr Vancomycin HCl 1 gm/ Sodium (Chloride) 250 mls @ 250 mls/hr IV ONETIME ONE Stop: 08/17/16 01:33 Last Admin: 08/17/16 00:40 Dose: 250 mls/hr Levofloxacin/Dextrose 750 mg/ (Premix) 150 mls @ 100 mls/hr IV Q24H [facility] Last Admin: 08/18/16 00:48 Dose: 100 mls/hr Metronidazole 500 mg/ Premix 100 mls @ 100 mls/hr IV QID [facility] Last Admin: 08/19/16 05:40 Dose: 100 mls/hr Vancomycin HCl 1,250 mg/ (Sodium Chloride) 250 mls @ 166.667 mls/hr IV Q12H [facility] Last Admin: 08/17/16 14:31 Dose: Not Given Vancomycin HCl 1,500 mg/ (Sodium Chloride) 500 mls @ 333.333 mls/hr IV Q12H [facility] Last Admin: 08/18/16 12:27 Dose: 333.333 mls/hr Levofloxacin/Dextrose 750 mg/ (Premix) 150 mls @ 100 mls/hr IV Q48H [facility] Vancomycin HCl 1,500 mg/ (Sodium Chloride) 500 mls @ 333.333 mls/hr IV Q24H [facility] Last Admin: 08/19/16 13:15 Dose: Not Given Vancomycin HCl 1,500 mg/ (Sodium Chloride) 500 mls @ 333.333 mls/hr IV Q24H [facility] Last Admin: 08/20/16 18:02 Dose: 333.333 mls/hr Lisinopril (Prinivil) 10 mg PO DAILY [facility] Last Admin: 08/21/16 09:00 Dose: 10 mg Ondansetron HCl (Zofran) 4 mg IVPUSH ONETIME ONE Stop: 08/17/16 00:30 Last Admin: 08/17/16 00:37 Dose: 4 mg Ondansetron HCl (Zofran) 4 mg IVPUSH Q4H PRN PRN Reason: Nausea/Vomiting Polyethylene Glycol (Miralax) 17 gm PO BID PRN PRN Reason: Constipation Tramadol HCl (Ultram) 50 mg PO QID [facility] Last Admin: 08/21/16 05:55 Dose: 50 mg Vancomycin HCl (Pharmacy To Dose - Vancomycin) 1 dose .XX ASDIRECTED [facility] Warfarin Sodium (Coumadin) 4 mg PO BEDTIME [facility] Last Admin: 08/18/16 21:01 Dose: 4 mg Warfarin Sodium (Coumadin Ask) 1 each PO DAILY@1400 [facility] Last Admin: 08/20/16 14:03 Dose: Not Given Warfarin Sodium (Coumadin) 4 mg PO DAILY@1400 [facility] Last Admin: 08/20/16 14:01 Dose: 4 mg - Exam General: Reports: alert, oriented, cooperative Neck: Reports: supple Lungs: Reports: Clear to auscultation, Normal respiratory effort Cardiovascular: Reports: Regular Rate, Regular Rhythm, No Murmurs Abdomen: Reports: bowel sounds present, soft, no tenderness, no distension Extremities: Reports: normal pulses, edema (+1 bilateral lower legs) Neurological: Reports: no new focal deficit Psy/Mental Status: Reports: alert, normal affect, normal mood *Q Meaningful Use (DIS) - VTE *Q VTE Criteria *Q: - Stroke *Q Stroke Criteria *Q: - AMI *Q AMI Criteria *Q:
--- NOTE | 2016-08-26 19:33 | ECHO ---
The echocardiogram report can be seen in this patient's EMR in the Reports section. EVAN
== END 2016-08-21 11:30 | DRG 872 ==
LOC: MW.ED 23:51 → MW.MS 08-17 02:25 → UNDOADMIN 08-17 02:25 → MW.MS 08-17 03:14
PROVIDERS: ADMIT Internal Medicine; ATTEND Internal Medicine
PROC: 02HV33Z Insertion of Infusion Device into Superior Vena Cava, Percutaneous Approach (ICD-10-PCS; principal; 2016-08-19)
DX: R78.81 Bacteremia (principal); B95.1 Streptococcus, group B, as the cause of diseases classified elsewhere; R11.2 Nausea with vomiting, unspecified; R50.9 Fever, unspecified; I48.91 Unspecified atrial fibrillation; I50.9 Heart failure, unspecified; I12.9 Hypertensive chronic kidney disease with stage 1 through stage 4 chronic kidney disease, or unspecified chronic kidney disease; N18.3 Chronic kidney disease, stage 3 (moderate); M19.90 Unspecified osteoarthritis, unspecified site; K80.20 Calculus of gallbladder without cholecystitis without obstruction; R93.5 Abnormal findings on diagnostic imaging of other abdominal regions, including retroperitoneum; F41.9 Anxiety disorder, unspecified; Z79.01 Long term (current) use of anticoagulants; Z88.0 Allergy status to penicillin; Z91.041 Radiographic dye allergy status; Z79.899 Other long term (current) drug therapy; Z85.51 Personal history of malignant neoplasm of bladder
CPT/HCPCS: 71010; 74176; 80053; 81001; 82553; 83605; 83880; 84484; 85025; 85610; 87040 ×2; 87077; 87086; 87186; 87804 ×2; 93005; 96365; 96366; 96367; 96375; 99285; J1956; J2405; J3370; J7040; J7050; 36415; 36569; 71250; 71250-26; 76705; 76705-26; 76937; 76937-26; 77001; 77001-26; 80048; 80202; 93306; 97802; A9270-GY

== ENCOUNTER → 2016-08-23 | Outpatient (CLI) | payer MEDICARE, BC | END | disposition home or self-care (01) | LOC: MW.LAB 15:37 | PROVIDERS: ATTEND Nurse Practitioner | DX: R78.81 Bacteremia (principal); B95.1 Streptococcus, group B, as the cause of diseases classified elsewhere; R11.2 Nausea with vomiting, unspecified | CPT/HCPCS: 80202 ==

== ENCOUNTER 2017-01-05 21:02 | Inpatient (IN) | payer MEDICARE, BC ==
--- NOTE | 2017-01-05 21:16 | EDM.PDOC ---
ED HPI GENERAL MEDICAL PROBLEM - General Chief Complaint: Fever Stated Complaint: AMBULANCE Time Seen by Provider: 01/05/17 21:13 - History of Present Illness INITIAL COMMENTS - FREE TEXT/NARRATIVE: HISTORY AND PHYSICAL: History of present illness: The patient is an 87-year-old male who resides at [facility] and has a long-standing history of hypertension coronary artery disease A. fib CHF hypertension and stage III renal disease who was recently admitted in August of this year for fever and sepsis and worked up--- that admission and some of the tests have been reviewed by me----and to re-presents spike with a temperature of 100.3 at the [facility]. The patient on his last admission had an echocardiogram performed which showed global LV dysfunction but an EF of 30-35%. Today the patient presents after stating that he had a cough all day today which is new for him and there was some phlegm and he coughed so hard that he made himself vomit a large amount of fluid today. According to family at bedside he was complaining of some nausea and some upper abdominal discomfort and feeling like he wanted to vomit and then the coughing started which triggered the vomiting. He says he felt better after the vomiting. His fever at the [facility] was 100.3 and here it is 100.5. They did not give any meds for the temperature but he received Zofran per the paramedics. The patient says he always has on again off again abdominal pain and he feels some abdominal discomfort currently but he cannot localize where it is he has no chest pain he does not feel short of breath. He has no leg pain and he currently wears a diaper. He said he had a bowel movement today which was normal for him. He has a wheelchair/bedridden and does not get up and move around. Review of systems: As per history of present illness and below otherwise all systems reviewed and negative. Past medical history: As per history of present illness and as reviewed below otherwise noncontributory. Surgical history: As per history of present illness and as reviewed below otherwise noncontributory. Social history: No reported history of drug or alcohol abuse. Family history: As per history of present illness and as reviewed below otherwise noncontributory. Physical exam: Gen.: Well-developed well-nourished man speaking clearly and easily in the ED without breathlessness vital signs of the note by me. HEENT: Atraumatic, normocephalic, pupils reactive, negative for conjunctival pallor or scleral icterus, mucous membranes moist, throat clear, neck supple, nontender, trachea midline. Lungs: Clear to auscultation with diminished breath sounds in the bases and occasional coarse breath sounds but no wheezing stridor or work of breathing, breath sounds equal bilaterally, chest nontender. Heart: S1S2, regular rate and rhythm and a systolic ejection murmur is appreciated at the left sternal border Abdomen: Soft, nondistended, nontender. On palpation I am unable to elicit any tenderness and there is no rebound or guarding bowel sounds are hypoactive and there is tympany on percussion in the right upper abdomen area. Negative for masses or hepatosplenomegaly. Negative for costovertebral tenderness. Pelvis: Stable nontender. Genitourinary: Deferred. Rectal: Deferred. Extremities: Atraumatic, negative for cords or calf pain. Neurovascular unremarkable. No chacho pedal edema Neuro: Awake, alert, oriented. Cranial nerves II through XII unremarkable. . Motor and sensory unremarkable throughout. Exam nonfocal. Diagnostics: EKG CBC CMP amylase lipase INR troponin BNP UA lactic acid blood cultures urine culture chest and abdominal x-rays Therapeutics: Gentle IV fluids Zofran Tylenol Levaquin Please note the patient has been stable in the ED with good color and no complaints of any pain. He has had intermittent coughing which is productive of some thick small amount of phlegm but the chest x-ray has been read as negative. We are currently awaiting the UA results and will choose antibiotics and speak with the hospitalist. 0045: Case was discussed with Dr. Whitley our hospitalist and he would like the patient to be admitted inpatient. We have reviewed the last admission in August and he had positive blood culture for group B strep. We have sent blood cultures here as well as a urine culture to follow-up. I've again told nursing that if the patient produces a sputum we'll send it to the lab. Dr. Whitley would like a dose of Levaquin to be given--- he is aware of the patient's Coumadin use and INR. Impression: Febrile illness, rule out early sepsis with multiple co morbidities--- elevated lactic acid and leukocytosis Rule out bronchitis Definitive disposition and diagnosis as appropriate pending reevaluation and review of above. bilateral hands Pain Score (Numeric/FACES): 9 - Related Data Allergies Allergy/AdvReac Type Severity Reaction Status Date / Time Iodinated Contrast- Oral and Allergy Anaphylactic Verified 01/05/17 21:13 IV Dye Shock [Iodinated Contrast Media - IV Dye] Penicillins Allergy Anaphylactic Verified 01/05/17 21:13 Shock Home Meds: Home Meds Acetaminophen [Tylenol] 650 mg PO TID 02/26/15 [History] busPIRone HCl [Buspirone HCl] 15 mg PO BID 02/26/15 [History] Bisacodyl 10 mg RC DAILY PRN 05/01/15 [History] Calcium Citrate/Vitamin D3 [Calcium Cit-Vit D 315-200] 1 each PO BID 05/01/15 [ History] Cholecalciferol (Vitamin D3) [D3-2000] 2,000 unit PO DAILY 05/01/15 [History] Docusate Sodium [Colace] 100 mg PO BID 05/01/15 [History] Multivitamin [Daily Dalton] 1 each PO DAILY 05/01/15 [History] Polyethylene Glycol 3350 [MiraLAX] 17 gm PO BID PRN 05/01/15 [History] Lisinopril [Prinivil] 10 mg PO DAILY 06/27/15 [History] Acetaminophen [Tylenol] 650 mg PO Q4H PRN 01/13/16 [History] Citalopram [Celexa] 20 mg PO DAILY 01/13/16 [History] Warfarin [Coumadin] 4 mg PO BEDTIME 01/13/16 [History] Alum Hydrox/Mag Hydrox/Simeth [Mag-Al Plus] 15 ml PO QID PRN 08/17/16 [History] Furosemide [Lasix] 80 mg PO DAILY 08/17/16 [History] Potassium Chloride [Klor-Con M20] 20 meq PO DAILY 08/18/16 [History] Vancomycin [Vancocin] 1 gm IV Q24H #14 adv 08/21/16 [Rx] traMADol [Ultram] 50 mg PO QID #30 tablet 08/21/16 [Rx] Past Medical History HEENT History: Reports: Macular Degeneration Cardiovascular History: Reports: Afib, Heart Failure, Hypertension, Other (See Below) Other Cardiovascular History: On Coumadin Respiratory History: Reports: Other (See Below) Other Respiratory History: Hx of Acute upper respiratory tract infection Gastrointestinal History: Reports: None Genitourinary History: Reports: Chronic Renal Insuffiency, Urinary Incontinence Other Genitourinary History: stage 3 kidney disease Musculoskeletal History: Reports: Osteoarthritis Neurological History: Reports: None Psychiatric History: Reports: Anxiety Endocrine/Metabolic History: Reports: None Hematologic History: Reports: None Immunologic History: Reports: None Oncologic (Cancer) History: Reports: Bladder Other Oncologic History: kidney ca Other Dermatologic History: parasthesia of skin - Past Surgical History Musculoskeletal Surgical History: Reports: Hip Replacement, Other (See Below) Social & Family History - Family History Family Medical History: Noncontributory Cardiac: Reports: Hypertension, [place] - Tobacco Use Smoking Status *Q: Never Smoker Second Hand Smoke Exposure: No - Recreational Drug Use Recreational Drug Use: No ED ROS GENERAL - Review of Systems Review Of Systems: ROS reveals no pertinent complaints other than HPI. ED EXAM, GENERAL - Physical Exam Exam: See Below (See dictation) Course - Vital Signs Last Recorded V/S: Last Vital Signs Temp 38.0 C 01/06/17 00:10 Pulse 80 01/06/17 00:10 Resp 18 01/06/17 00:10 BP 136/70 01/06/17 00:10 Pulse Ox 98 01/06/17 00:10 - Orders/Labs/Meds Orders: Active Orders 24 hr Category Date Time Status Patient Status [ADT] Stat ADT 01/06/17 00:48 Ordered Cardiac Monitoring [RC] . DIRECTED Care 01/05/17 21:37 Active EKG Documentation Completion [RC] STAT Care 01/05/17 21:37 Active Oxygen Therapy, ED [RC] ASDIRECTED Care 01/05/17 21:37 Active Pulse Oximetry [RC] ASDIRECTED Care 01/05/17 21:37 Active Abdomen 2V AP Flat Upright [CR] Stat Exams 01/05/17 21:38 Taken Chest 1V Frontal [CR] Stat Exams 01/05/17 21:38 Taken CULTURE BLOOD [BC] Stat Lab 01/05/17 22:00 Received CULTURE BLOOD [BC] Stat Lab 01/05/17 22:12 Received CULTURE URINE [RM] Stat Lab 01/05/17 23:58 Received Levofloxacin/Dextrose 5%-Water [Levaquin in D5W 500 MG/ Med 01/06/17 00:48 Ordered 100 ML] 500 mg Premix Bag 1 bag IV ONETIME Sodium Chloride 0.9% [Normal Saline] 1,000 ml Med 01/05/17 21:45 Active IV ASDIRECTED Sodium Chloride 0.9% [Saline Flush] Med 01/05/17 21:38 Active 10 ml FLUSH ASDIRECTED PRN Sodium Chloride 0.9% [Saline Flush] Med 01/05/17 21:38 Active 2.5 ml FLUSH ASDIRECTED PRN Blood Culture x2 Reflex Set [OM.PC] Stat Ot 01/05/17 21:38 Ordered Saline Lock Insert [OM.PC] Stat Ot 01/05/17 21:37 Ordered Medication Orders Sodium Chloride (Normal Saline) 1,000 mls @ 75 mls/hr IV ASDIRECTED RUPINDER Last Admin: 01/05/17 22:35 Dose: 75 mls/hr Levofloxacin/Dextrose 500 mg/ (Premix) 100 mls @ 100 mls/hr IV ONETIME ONE Stop: 01/06/17 01:47 Sodium Chloride (Saline Flush) 10 ml FLUSH ASDIRECTED PRN PRN Reason: Keep Vein Open Sodium Chloride (Saline Flush) 2.5 ml FLUSH ASDIRECTED PRN PRN Reason: Keep Vein Open Labs: Laboratory Tests 01/05/17 01/05/17 01/05/17 Range/Units 22:00 22:00 22:00 WBC 13.82 H (4.0-11.0) K/uL RBC 3.99 L (4.50-5.90) M/uL Hgb 12.3 L (13.0-17.0) g/dL Hct 38.2 (38.0-50.0) % MCV 95.7 (80.0-98.0) fL MCH 30.8 (27.0-32.0) pg MCHC 32.2 (31.0-37.0) g/dL RDW Std Deviation 51.2 (28.0-62.0) fl RDW Coeff of Donovan 15 (11.0-15.0) % Plt Count 197 (150-400) K/uL MPV 9.20 (7.40-12.00) fL Neut % (Auto) 85.8 H (48.0-80.0) % Lymph % (Auto) 6.2 L (16.0-40.0) % Terrell % (Auto) 7.5 (0.0-15.0) % Eos % (Auto) 0.4 (0.0-7.0) % Baso % (Auto) 0.1 (0.0-1.5) % Neut # (Auto) 11.9 H (1.4-5.7) K/uL Lymph # (Auto) 0.9 (0.6-2.4) K/uL Terrell # (Auto) 1.0 H (0.0-0.8) K/uL Eos # (Auto) 0.1 (0.0-0.7) K/uL Baso # (Auto) 0.0 (0.0-0.1) K/uL Nucleated RBC % 0.0 /100WBC Nucleated RBCs # 0 K/uL INR 2.28 H (0.86-1.11) Lactate (0.20-2.00) mmol/L Sodium 139 (136-146) mmol/L Potassium 4.6 (3.5-5.1) mmol/L Chloride 101 (98-110) mmol/L Carbon Dioxide 28 (21-31) mmol/L BUN 16 (6.0-23.0) mg/dL Creatinine 1.4 (0.6-1.5) mg/dL Est Cr Clr Drug Dosing 38.69 mL/min Estimated GFR (MDRD) 47.8 ml/min Glucose 123 H (60-110) mg/dL Calcium 9.4 (8.8-10.8) mg/dL Total Bilirubin 0.7 (0.1-1.5) mg/dL AST 16 (5-40) IU/L ALT 11 (8-54) IU/L Alkaline Phosphatase 100 (40-150) Troponin I (0.0-0.29) NG/ML B-Natriuretic Peptide (<100) PG/ML Total Protein 7.1 (6.0-8.0) g/dL Albumin 3.8 (3.4-4.8) g/dL Globulin 3.3 (2.0-3.5) g/dL Albumin/Globulin Ratio 1.2 L (1.3-2.8) Amylase 45 (10-90) U/L Lipase < 8 (7-80) U/L Urine Color Urine Appearance Urine pH (5.0-8.0) Ur Specific Ingalls (1.001-1.035) Urine Protein (NEGATIVE) mg/dL Urine Glucose (UA) (NEGATIVE) mg/dL Urine Ketones (NEGATIVE) mg/dL Urine Occult Blood (NEGATIVE) Urine Nitrite (NEGATIVE) Urine Bilirubin (NEGATIVE) Urine Urobilinogen (<2.0) EU/dL Ur Leukocyte Esterase (NEGATIVE) Urine RBC (0-2/HPF) Urine WBC (0-5/HPF) Ur Epithelial Cells (NONE-FEW) Urine Bacteria (NEGATIVE) 01/05/17 01/05/17 01/05/17 Range/Units 22:00 22:00 22:00 WBC (4.0-11.0) K/uL RBC (4.50-5.90) M/uL Hgb (13.0-17.0) g/dL Hct (38.0-50.0) % MCV (80.0-98.0) fL MCH (27.0-32.0) pg MCHC (31.0-37.0) g/dL RDW Std Deviation (28.0-62.0) fl RDW Coeff of Donovan (11.0-15.0) % Plt Count (150-400) K/uL MPV (7.40-12.00) fL Neut % (Auto) (48.0-80.0) % Lymph % (Auto) (16.0-40.0) % Terrell % (Auto) (0.0-15.0) % Eos % (Auto) (0.0-7.0) % Baso % (Auto) (0.0-1.5) % Neut # (Auto) (1.4-5.7) K/uL Lymph # (Auto) (0.6-2.4) K/uL Terrell # (Auto) (0.0-0.8) K/uL Eos # (Auto) (0.0-0.7) K/uL Baso # (Auto) (0.0-0.1) K/uL Nucleated RBC % /100WBC Nucleated RBCs # K/uL INR (0.86-1.11) Lactate 3.6 H (0.20-2.00) mmol/L Sodium (136-146) mmol/L Potassium (3.5-5.1) mmol/L Chloride (98-110) mmol/L Carbon Dioxide (21-31) mmol/L BUN (6.0-23.0) mg/dL Creatinine (0.6-1.5) mg/dL Est Cr Clr Drug Dosing mL/min Estimated GFR (MDRD) ml/min Glucose (60-110) mg/dL Calcium (8.8-10.8) mg/dL Total Bilirubin (0.1-1.5) mg/dL AST (5-40) IU/L ALT (8-54) IU/L Alkaline Phosphatase (40-150) Troponin I < 0.10 (0.0-0.29) NG/ML B-Natriuretic Peptide 399 H (<100) PG/ML Total Protein (6.0-8.0) g/dL Albumin (3.4-4.8) g/dL Globulin (2.0-3.5) g/dL Albumin/Globulin Ratio (1.3-2.8) Amylase (10-90) U/L Lipase (7-80) U/L Urine Color Urine Appearance Urine pH (5.0-8.0) Ur Specific Ingalls (1.001-1.035) Urine Protein (NEGATIVE) mg/dL Urine Glucose (UA) (NEGATIVE) mg/dL Urine Ketones (NEGATIVE) mg/dL Urine Occult Blood (NEGATIVE) Urine Nitrite (NEGATIVE) Urine Bilirubin (NEGATIVE) Urine Urobilinogen (<2.0) EU/dL Ur Leukocyte Esterase (NEGATIVE) Urine RBC (0-2/HPF) Urine WBC (0-5/HPF) Ur Epithelial Cells (NONE-FEW) Urine Bacteria (NEGATIVE) 01/05/17 Range/Units 23:58 WBC (4.0-11.0) K/uL RBC (4.50-5.90) M/uL Hgb (13.0-17.0) g/dL Hct (38.0-50.0) % MCV (80.0-98.0) fL MCH (27.0-32.0) pg MCHC (31.0-37.0) g/dL RDW Std Deviation (28.0-62.0) fl RDW Coeff of Donovan (11.0-15.0) % Plt Count (150-400) K/uL MPV (7.40-12.00) fL Neut % (Auto) (48.0-80.0) % Lymph % (Auto) (16.0-40.0) % Terrell % (Auto) (0.0-15.0) % Eos % (Auto) (0.0-7.0) % Baso % (Auto) (0.0-1.5) % Neut # (Auto) (1.4-5.7) K/uL Lymph # (Auto) (0.6-2.4) K/uL Terrell # (Auto) (0.0-0.8) K/uL Eos # (Auto) (0.0-0.7) K/uL Baso # (Auto) (0.0-0.1) K/uL Nucleated RBC % /100WBC Nucleated RBCs # K/uL INR (0.86-1.11) Lactate (0.20-2.00) mmol/L Sodium (136-146) mmol/L Potassium (3.5-5.1) mmol/L Chloride (98-110) mmol/L Carbon Dioxide (21-31) mmol/L BUN (6.0-23.0) mg/dL Creatinine (0.6-1.5) mg/dL Est Cr Clr Drug Dosing mL/min Estimated GFR (MDRD) ml/min Glucose (60-110) mg/dL Calcium (8.8-10.8) mg/dL Total Bilirubin (0.1-1.5) mg/dL AST (5-40) IU/L ALT (8-54) IU/L Alkaline Phosphatase (40-150) Troponin I (0.0-0.29) NG/ML B-Natriuretic Peptide (<100) PG/ML Total Protein (6.0-8.0) g/dL Albumin (3.4-4.8) g/dL Globulin (2.0-3.5) g/dL Albumin/Globulin Ratio (1.3-2.8) Amylase (10-90) U/L Lipase (7-80) U/L Urine Color YELLOW Urine Appearance CLEAR Urine pH 5.5 (5.0-8.0) Ur Specific Ingalls 1.020 (1.001-1.035) Urine Protein NEGATIVE (NEGATIVE) mg/dL Urine Glucose (UA) NEGATIVE (NEGATIVE) mg/dL Urine Ketones NEGATIVE (NEGATIVE) mg/dL Urine Occult Blood SMALL H (NEGATIVE) Urine Nitrite NEGATIVE (NEGATIVE) Urine Bilirubin NEGATIVE (NEGATIVE) Urine Urobilinogen 0.2 (<2.0) EU/dL Ur Leukocyte Esterase NEGATIVE (NEGATIVE) Urine RBC 1-3 (0-2/HPF) Urine WBC 0-1 (0-5/HPF) Ur Epithelial Cells RARE (NONE-FEW) Urine Bacteria FEW (NEGATIVE) Meds: Medications Generic Name Dose Route Start Last Admin Trade Name Freq PRN Reason Stop Dose Admin Sodium Chloride 1,000 mls @ 75 mls/hr 01/05/17 21:45 01/05/17 22:35 Normal Saline IV 75 mls/hr ASDIRECTED RUPINDER Administration Levofloxacin/Dextrose 500 mg/ 100 mls @ 100 mls/hr 01/06/17 00:48 Premix IV 01/06/17 01:47 ONETIME ONE Sodium Chloride 10 ml 01/05/17 21:38 Saline Flush FLUSH ASDIRECTED PRN Keep Vein Open Sodium Chloride 2.5 ml 01/05/17 21:38 Saline Flush FLUSH ASDIRECTED PRN Keep Vein Open Discontinued Medications Generic Name Dose Route Start Last Admin Trade Name Freq PRN Reason Stop Dose Admin Acetaminophen 650 mg 01/05/17 21:44 01/05/17 22:35 Tylenol PO 01/05/17 21:45 650 mg NOW ONE Administration Ketorolac Tromethamine 30 mg 01/06/17 00:40 Toradol IVPUSH 01/06/17 00:41 ONETIME ONE Ketorolac Tromethamine 30 mg 01/06/17 00:40 Toradol IVPUSH 01/06/17 00:41 ONETIME ONE Departure - Departure Time of Disposition: 00:52 Disposition: Admitted As Inpatient 65 Condition: Good Clinical Impression: Febrile illness, Bronchitis, Elevated lactic acid level Leukocytosis Qualifiers: Leukocytosis type: other Qualified Code(s): D72.828 - Other elevated white blood cell count - Discharge Information Referrals: Jovi Benito MD [Primary Care Provider] - Forms: ED Department Discharge - My Orders Last 24 Hours: My Active Orders 01/05/17 21:37 Cardiac Monitoring [RC] . DIRECTED EKG Documentation Completion [RC] STAT Oxygen Therapy, ED [RC] ASDIRECTED Pulse Oximetry [RC] ASDIRECTED Saline Lock Insert [OM.PC] Stat 01/05/17 21:38 Abdomen 2V AP Flat Upright [CR] Stat Chest 1V Frontal [CR] Stat Sodium Chloride 0.9% [Saline Flush] 10 ml FLUSH ASDIRECTED PRN Sodium Chloride 0.9% [Saline Flush] 2.5 ml FLUSH ASDIRECTED PRN Blood Culture x2 Reflex Set [OM.PC] Stat 01/05/17 21:45 Sodium Chloride 0.9% [Normal Saline] 1,000 ml IV ASDIRECTED 01/05/17 22:00 CULTURE BLOOD [BC] Stat 01/05/17 22:12 CULTURE BLOOD [BC] Stat 01/05/17 23:58 CULTURE URINE [RM] Stat 01/06/17 00:48 Patient Status [ADT] Stat Levofloxacin/Dextrose 5%-Water [Levaquin in D5W 500 MG/100 ML] 500 mg Premix Bag 1 bag IV ONETIME - Assessment/Plan Last 24 Hours: My Active Orders 01/05/17 21:37 Cardiac Monitoring [RC] . DIRECTED EKG Documentation Completion [RC] STAT Oxygen Therapy, ED [RC] ASDIRECTED Pulse Oximetry [RC] ASDIRECTED Saline Lock Insert [OM.PC] Stat 01/05/17 21:38 Abdomen 2V AP Flat Upright [CR] Stat Chest 1V Frontal [CR] Stat Sodium Chloride 0.9% [Saline Flush] 10 ml FLUSH ASDIRECTED PRN Sodium Chloride 0.9% [Saline Flush] 2.5 ml FLUSH ASDIRECTED PRN Blood Culture x2 Reflex Set [OM.PC] Stat 01/05/17 21:45 Sodium Chloride 0.9% [Normal Saline] 1,000 ml IV ASDIRECTED 01/05/17 22:00 CULTURE BLOOD [BC] Stat 01/05/17 22:12 CULTURE BLOOD [BC] Stat 01/05/17 23:58 CULTURE URINE [RM] Stat 01/06/17 00:48 Patient Status [ADT] Stat Levofloxacin/Dextrose 5%-Water [Levaquin in D5W 500 MG/100 ML] 500 mg Premix Bag 1 bag IV ONETIME
[2017-01-05] MEDS ORDERED: Sodium Chloride 0.9% 10 ML Syringe FLUSH PRN (21:38)
[2017-01-05] MEDS ORDERED: Sodium Chloride 0.9% 2.5 ML Syringe FLUSH PRN (21:38)
[2017-01-05] MEDS ORDERED: Acetaminophen 325 MG Tab PO ONE (21:44)
[2017-01-05] MEDS: Sodium Chloride 0.9% 1,000 ML IV SCH (22:35)
[2017-01-05 22:45] LABS: CHLORIDE,CL 101 mmol/L (98-110); SODIUM,NA 139 mmol/L (136-146)
[2017-01-06] MEDS ORDERED: Ketorolac 30 MG/ML SDV IVPUSH ONE ×2 (00:40)
[2017-01-06] MEDS ORDERED: Levofloxacin/Dextrose 5%-Water 500 MG in Premix Bag 1 BAG IV ONE (00:48)
--- NOTE | 2017-01-06 09:47 | CR ---
EXAM DATE: 01/06/17 PATIENT'S AGE: 87 Patient: JAMES HURD Facility: [place], [place] Site . Site : 1930 Study: XRay Abdomen [id number]/31/[id number] 11:31:34 PM Ordering Physician: Debra Alexander Final Report: INDICATION: vomiting, pain, stomach issues TECHNIQUE: Abdomen 4 view. Evaluation degraded by patient body habitus. The entire abdomen was not imaged on today`s examination. COMPARISON: None FINDINGS: Bowel: Nonobstructive bowel gas pattern. . Soft tissues: No sign of soft tissue mass. No suspicious calcifications. Bones: Degenerative changes. Partially imaged bilateral hip arthroplasties. IMPRESSION: The entire abdomen was not imaged on today`s examination. Nonobstructive bowel gas pattern. Dictated by Jayson Cabello MD @ 01/05/2017 11:39:48 PM Dictated by: Jayson Cabello MD @ 01/05/2017 23:40:26 (Electronic Signature) Report Signed by Proxy. [facility]az[facility]
--- NOTE | 2017-01-06 09:48 | CR ---
EXAM DATE: 01/06/17 PATIENT'S AGE: 87 Patient: JAMES HURD Facility: [place], [place] Site . Site : 1930 Study: XRay Chest [id number]/31/2017 11:32:07 PM Ordering Physician: Debra Alexander Final Report: INDICATION: pain, vomitting TECHNIQUE: Chest 1 view COMPARISON: None FINDINGS: Cardiovascular and mediastinum: Cardiomegaly. Ectasia of the aortic arch. Atherosclerotic disease. Mediastinum is within normal limits. Lungs and pleural space: Low lung volumes. No sign of pleural effusion. No pneumothorax. Bones and soft tissues: Degenerative changes. Advanced changes of the imaged left shoulder girdle. IMPRESSION: No acute cardiopulmonary disease. Dictated by Jayson Cabello MD @ 01/05/2017 11:41:34 PM Dictated by: Jayson Cabello MD @ 01/05/2017 23:41:40 (Electronic Signature) Report Signed by Proxy. [facility]
[2017-01-06] MEDS: Sodium Chloride 0.9% 1,000 ML IV SCH (11:28)
[2017-01-06] MEDS ORDERED: traMADol 50 MG Tab PO SCH (14:03)
[2017-01-06] MEDS: Acetaminophen 325 MG Tab PO PRN (16:51)
--- NOTE | 2017-01-06 17:06 | CT ---
EXAMINATION: CT paranasal sinuses. HISTORY: Fever. FINDINGS: No evidence of facial bone fractures. Orbits are intact. No intra or extra orbital soft ti ssue injury. Paranasal sinuses are well aerated. The ostiomeatal complexes, frontoethmoidal, sphenoethmoidal rece sses are clear. Mandible is intact. Both temporomandibular joints are symmetric. Mastoid air cells in the visualized portion are clear. No substantial soft tissue asymmetry. Degenerative and postoperative changes noted within the visual ized cervical spine. IMPRESSION: Grossly unremarkable paranasal sinuses.
--- NOTE | 2017-01-06 17:07 | CT ---
CT of the chest, abdomen and pelvis without contrast. HISTORY: Fever TECHNIQUE: Axial CT images were obtained of the abdomen and pelvis without contrast. Coronal and sag ittal reconstructions obtained. FINDINGS: Chest: Dependent atelectasis is noted. No focal consolidation, pleural effusion, or pneumothorax. Th e heart is borderline in size without a pericardial effusion. Valvular and coronary artery calcifica tions are noted. The thoracic aorta is normal in caliber. No mediastinal, hilar, or axillary lymphad enopathy. Mild bilateral gynecomastia. Abdomen: There is a tiny cyst within the right hepatic lobe. The Spleen, adrenal glands, and pancrea s appear unremarkable for noncontrast examination. Cholelithiasis without evidence of cholecystitis. There is no bulky retroperitoneal lymphadenopathy. No abdominal ascites. There are no calcifications noted within the kidneys or along the courses of the ureters bilaterally . There is moderate hydronephrosis and hydroureter bilaterally extending to the urinary bladder. Pelvis: The fine detail of the pelvis is obscured secondary to bilateral hip hardware. The large and small bowel are normal in caliber without evidence of obstruction. There is thickening of the dista l rectal salvador. The appendix appears normal. There are a few scattered diverticula without evidence of diverticulitis. There is no bulky pelvic lymphadenopathy. No free fluid. No free air. The urinary bladder is not well characterized due to overlying artifact. Tiny fat-containing right inguinal her mayra. Mild to moderate prominence of the prostate. Advanced osteoarthritic changes noted within the shoulders. Degenerative changes also noted within t he thoracolumbar spine. IMPRESSION: 1. No acute findings within the chest, abdomen or pelvis. 2. Moderate hydronephrosis bilaterally extending to the urinary bladder. Correlate with bladder outl et obstruction. 3. Cholelithiasis without evidence of cholecystitis. 4. Mild diverticulosis without evidence of diverticulitis. 5. Mild circumferential rectal wall thickening distally. 6. Renal and hepatic cysts. 7. Advanced osteoarthritic changes within the shoulder and lumbar spine. 8. Bilateral total hip hardware obscuring fine detail within the pelvis. 9. Borderline cardiomegaly. 10. Coronary and valvular calcifications.
--- NOTE | 2017-01-06 18:32 | PCM.HP ---
H&P History of Present Illness - General Date of Service: 01/06/17 Admit Problem/Dx: Admission Diagnosis/Problem Admission Diagnosis/Problem Fever Source of Information: Patient, Family - History of Present Illness Initial Comments - Free Text/Narative: History of presenting illness: 7-year-old male who is a [facility] senior care resident with a significant past medical history of hypertension coronary artery disease, atrial fibrillation, congestive heart failure, stage III renal disease, with multiple infections over the past year with sepsis with group B strep. Patient was noted to have an elevated temperature at [facility] of 100.3 overnight subsequently he was then sent over to the ER for concerns of possible infection. The patient did have productive sputum and phlegm in the ER and was thought to possibly have a pneumonia type process. In the ED the patient was noted to have an elevated temperature 100.5 with some confusion. Patient was given 1 dose of Levaquin for what was initially thought to be a respiratory/ pneumonia type process. Subsequently due to his elevated WBC count and previous past medical history of sepsis and elevated lactate acid level patient was then subsequently admitted. bilateral hands Pain Score (Numeric/FACES): 9 - Related Data Allergies/Adverse Reactions: Allergies Allergy/AdvReac Type Severity Reaction Status Date / Time Iodinated Contrast- Oral and Allergy Anaphylactic Verified 01/05/17 21:13 IV Dye Shock [Iodinated Contrast Media - IV Dye] Penicillins Allergy Anaphylactic Verified 01/05/17 21:13 Shock Home Medications: Home Meds Acetaminophen [Tylenol] 650 mg PO TID 02/26/15 [History] busPIRone HCl [Buspirone HCl] 15 mg PO BID 02/26/15 [History] Bisacodyl 10 mg RC DAILY PRN 05/01/15 [History] Calcium Citrate/Vitamin D3 [Calcium Cit-Vit D 315-200] 1 each PO BID 05/01/15 [ History] Cholecalciferol (Vitamin D3) [D3-2000] 2,000 unit PO DAILY 05/01/15 [History] Docusate Sodium [Colace] 100 mg PO BID 05/01/15 [History] Multivitamin [Daily Dalton] 1 each PO DAILY 05/01/15 [History] Polyethylene Glycol 3350 [MiraLAX] 17 gm PO BID PRN 05/01/15 [History] Lisinopril [Prinivil] 10 mg PO DAILY 06/27/15 [History] Acetaminophen [Tylenol] 650 mg PO Q4H PRN 01/13/16 [History] Citalopram [Celexa] 20 mg PO DAILY 01/13/16 [History] Warfarin [Coumadin] 4 mg PO BEDTIME 01/13/16 [History] Alum Hydrox/Mag Hydrox/Simeth [Mag-Al Plus] 15 ml PO QID PRN 08/17/16 [History] Furosemide [Lasix] 80 mg PO DAILY 08/17/16 [History] Potassium Chloride [Klor-Con M20] 20 meq PO DAILY 08/18/16 [History] traMADol [Ultram] 50 mg PO QID #30 tablet 08/21/16 [Rx] Past Medical History HEENT History: Reports: Macular Degeneration Cardiovascular History: Reports: Afib, Heart Failure, Hypertension, Other (See Below) Other Cardiovascular History: On Coumadin Respiratory History: Reports: Other (See Below) Other Respiratory History: Hx of Acute upper respiratory tract infection Gastrointestinal History: Reports: None, Other (See Below) (Cholelithiasis without cholecystitis) Genitourinary History: Reports: Chronic Renal Insuffiency (Urinary obstruction) , Urinary Incontinence Other Genitourinary History: stage 3 kidney disease Musculoskeletal History: Reports: Osteoarthritis Neurological History: Reports: None Psychiatric History: Reports: Anxiety Endocrine/Metabolic History: Reports: None Hematologic History: Reports: None Immunologic History: Reports: None Oncologic (Cancer) History: Reports: Bladder Other Oncologic History: kidney ca Other Dermatologic History: parasthesia of skin - Infectious Disease History Infectious Disease History: Reports: None, Other (See Below) (Previous past medical history of group B strep bacteremia admissions) - Past Surgical History Musculoskeletal Surgical History: Reports: Hip Replacement, Other (See Below) Social & Family History - Family History Family Medical History: Noncontributory Cardiac: Reports: Hypertension, [place] - Tobacco Use Smoking Status *Q: Never Smoker Second Hand Smoke Exposure: No - Caffeine Use Caffeine Use: Reports: Coffee, Soda - Recreational Drug Use Recreational Drug Use: No H&P Review of Systems - Review of Systems: Review Of Systems: ROS reveals no pertinent complaints other than HPI. Exam - Exam Exam: See Below - Vital Signs Vital Signs: Last Vital Signs Temp 36.4 C 01/06/17 16:00 Pulse 67 01/06/17 16:00 Resp 16 01/06/17 16:00 BP 132/59 L 01/06/17 16:00 Pulse Ox 99 01/06/17 16:00 Weight: 104 kg - Exam General: Cooperative, Mild Distress, Lethargic HEENT: Hearing Intact Neck: Supple Lungs: Clear to Auscultation Cardiovascular: Regular Rate GI/Abdominal Exam: Normal Bowel Sounds, Soft, Non-Tender Back Exam: Decreased Range of Motion Extremities: Pedal Edema Neuro Extensive - Mental Status: Alert - Patient Data Lab Results Last 24 hrs: Laboratory Results - last 24 hr 01/06/17 01/06/17 01/06/17 Range/Units 03:45 03:45 03:45 WBC 15.83 H (4.0-11.0) K/uL RBC 3.75 L (4.50-5.90) M/uL Hgb 11.3 L (13.0-17.0) g/dL Hct 35.5 L (38.0-50.0) % MCV 94.7 (80.0-98.0) fL MCH 30.1 (27.0-32.0) pg MCHC 31.8 (31.0-37.0) g/dL RDW Std Deviation 50.0 (28.0-62.0) fl RDW Coeff of Donovan 15 (11.0-15.0) % Plt Count 158 (150-400) K/uL MPV 9.00 (7.40-12.00) fL Add Manual Diff YES Neutrophils % (Manual) 78 (48.0-80.0) % Band Neutrophils % 10 % Lymphocytes % (Manual) 4 L (16.0-40.0) % Monocytes % (Manual) 8 (0.0-15.0) % Nucleated RBC % 0.0 /100WBC Absolute Seg Neuts 12.3 Band Neutrophils # 1.6 Lymphocytes # (Manual) 0.6 Monocytes # (Manual) 1.3 Nucleated RBCs # 0 K/uL INR 2.46 H (0.86-1.11) Lactate 1.9 (0.20-2.00) mmol/L Sodium (136-146) mmol/L Potassium (3.5-5.1) mmol/L Chloride (98-110) mmol/L Carbon Dioxide (21-31) mmol/L BUN (6.0-23.0) mg/dL Creatinine (0.6-1.5) mg/dL Est Cr Clr Drug Dosing mL/min Estimated GFR (MDRD) ml/min Glucose (60-110) mg/dL Calcium (8.8-10.8) mg/dL 01/06/17 Range/Units 03:45 WBC (4.0-11.0) K/uL RBC (4.50-5.90) M/uL Hgb (13.0-17.0) g/dL Hct (38.0-50.0) % MCV (80.0-98.0) fL MCH (27.0-32.0) pg MCHC (31.0-37.0) g/dL RDW Std Deviation (28.0-62.0) fl RDW Coeff of Donovan (11.0-15.0) % Plt Count (150-400) K/uL MPV (7.40-12.00) fL Add Manual Diff Neutrophils % (Manual) (48.0-80.0) % Band Neutrophils % % Lymphocytes % (Manual) (16.0-40.0) % Monocytes % (Manual) (0.0-15.0) % Nucleated RBC % /100WBC Absolute Seg Neuts Band Neutrophils # Lymphocytes # (Manual) Monocytes # (Manual) Nucleated RBCs # K/uL INR (0.86-1.11) Lactate (0.20-2.00) mmol/L Sodium 140 (136-146) mmol/L Potassium 4.0 (3.5-5.1) mmol/L Chloride 105 (98-110) mmol/L Carbon Dioxide 25 (21-31) mmol/L BUN 20 (6.0-23.0) mg/dL Creatinine 1.4 (0.6-1.5) mg/dL Est Cr Clr Drug Dosing 38.85 mL/min Estimated GFR (MDRD) 47.8 ml/min Glucose 123 H (60-110) mg/dL Calcium 8.6 L (8.8-10.8) mg/dL Result Diagrams: 01/06/17 03:45 01/06/17 03:45 *Q Meaningful Use (ADM) - VTE *Q VTE Criteria *Q: VTE Mechanical Contraindications *Q: At Risk for Falls - VTE Risk Assess *Q Each Risk Factor Represents 3 Points: Age 75 Years or Greater Total Score 3 Point Risk Factors: 3 - Stroke *Q Stroke Criteria *Q: - AMI *Q AMI Criteria *Q: Problem List Initiated/Reviewed/Updated: Yes Orders Last 24hrs: Active Orders 24 hr Category Date Time Status Regular Diet [DIET] Diet 01/06/17 Breakfast Active Echo Comp wo Cont [US] Urgent Exams 01/06/17 09:02 Taken VANCOMYCIN TROUGH [CHEM] Routine Lab 01/09/17 07:00 Ordered Acetaminophen [Tylenol] Med 01/06/17 14:02 Active 650 mg PO Q4H PRN Acetaminophen [Tylenol] Med 01/06/17 22:00 Active 650 mg PO TID Vancomycin 1,500 mg Med 01/06/17 08:00 Active Sodium Chloride 0.9% [Normal Saline] 500 ml IV Q24H Vancomycin Pharmacy to Dose [Pharmacy to Dose - Med 01/06/17 07:45 Active Vancomycin] 1 dose .XX ASDIRECTED traMADol [Ultram] Med 01/06/17 20:00 Active 50 mg PO QID Resuscitation Status Routine Resus Stat 01/06/17 09:10 Ordered Medication Orders Acetaminophen (Tylenol) 650 mg PO Q4H PRN PRN Reason: Pain/Fever Last Admin: 01/06/17 16:51 Dose: 650 mg Acetaminophen (Tylenol) 650 mg PO TID [facility] Sodium Chloride (Normal Saline) 1,000 mls @ 75 mls/hr IV ASDIRECTED [facility] Last Admin: 01/06/17 11:28 Dose: 75 mls/hr Infusion: 01/06/17 11:28 Dose: 75 mls/hr Admin: 01/05/17 22:35 Dose: 75 mls/hr Vancomycin HCl 1,500 mg/ (Sodium Chloride) 500 mls @ 250 mls/hr IV Q24H [facility] Last Admin: 01/06/17 08:10 Dose: 250 mls/hr Sodium Chloride (Saline Flush) 10 ml FLUSH ASDIRECTED PRN PRN Reason: Keep Vein Open Sodium Chloride (Saline Flush) 2.5 ml FLUSH ASDIRECTED PRN PRN Reason: Keep Vein Open Tramadol HCl (Ultram) 50 mg PO QID [facility] Vancomycin HCl (Pharmacy To Dose - Vancomycin) 1 dose .XX ASDIRECTED [facility] Assessment/Plan Comment:: Assessment: #1. Fevers, elevated lactate acid level, elevated WBC, preliminary blood cultures growing gram-positive organisms all contributing to sepsis bacteremia likely group B strep as the patient has had this in the past. #2. Elevated lactate acid level #3. Mildly elevated BNP of 399 #4. UTI with few WBC, few bacteria, negative for leuk esterase and negative for nitrates. Plan: #1. Patient was initially given Levaquin however patient does not seem to have respiratory-related infectious process. However the patient is growing gram- positive organisms and his blood likely to be group B strep as such we will start the patient on vancomycin and await sensitivity of those results. At this point in time the patient's elevated lactate level has normalized as such we will just continue to monitor. At this point in time we're not concerned about fluid overload with congestive heart failure as the BNP is only mildly elevated. We will look for the source of the infection whether it is a urinary tract infection or possible abdominal abscess. As such we will be doing a keller CT of the head chest abdomen and pelvis.
[2017-01-06] MEDS: traMADol 50 MG Tab PO SCH (20:16)
[2017-01-06] MEDS: Acetaminophen 325 MG Tab PO SCH (22:03)
--- NOTE | 2017-01-06 22:44 | PCM.DCSUM1 ---
Discharge Summary - Discharge Data Discharge Date: 01/06/17 Discharge Disposition: Home, Self-Care 01 Condition: Good - Patient Instructions Diet: Regular Diet as Tolerated (breast milk/ formula) - Discharge Plan Home Medications: Home Meds Acetaminophen [Tylenol] 650 mg PO TID 02/26/15 [History] busPIRone HCl [Buspirone HCl] 15 mg PO BID 02/26/15 [History] Bisacodyl 10 mg RC DAILY PRN 05/01/15 [History] Calcium Citrate/Vitamin D3 [Calcium Cit-Vit D 315-200] 1 each PO BID 05/01/15 [ History] Cholecalciferol (Vitamin D3) [D3-2000] 2,000 unit PO DAILY 05/01/15 [History] Docusate Sodium [Colace] 100 mg PO BID 05/01/15 [History] Multivitamin [Daily Dalton] 1 each PO DAILY 05/01/15 [History] Polyethylene Glycol 3350 [MiraLAX] 17 gm PO BID PRN 05/01/15 [History] Lisinopril [Prinivil] 10 mg PO DAILY 06/27/15 [History] Acetaminophen [Tylenol] 650 mg PO Q4H PRN 01/13/16 [History] Citalopram [Celexa] 20 mg PO DAILY 01/13/16 [History] Warfarin [Coumadin] 4 mg PO BEDTIME 01/13/16 [History] Alum Hydrox/Mag Hydrox/Simeth [Mag-Al Plus] 15 ml PO QID PRN 08/17/16 [History] Furosemide [Lasix] 80 mg PO DAILY 08/17/16 [History] Potassium Chloride [Klor-Con M20] 20 meq PO DAILY 08/18/16 [History] traMADol [Ultram] 50 mg PO QID #30 tablet 08/21/16 [Rx] Forms: ED Department Discharge Referrals: Jovi Benito MD [Primary Care Provider] - - Discharge Summary/Plan Comment DC Time >30 min.: Yes Discharge Summary/Plan Comment: patient is much better today as reported by mother and nurse. he is happy and his vital sign are all normal. no oxygen required. physical exam are grossly normal. baby is discharge with antibiotic for 9 days and f/u with pmd in 5 days. - General Info Date of Service: 01/06/17 Admission Dx/Problem (Free Text: Admission Diagnosis/Problem Admission Diagnosis/Problem Fever Functional Status: Reports: Pain Controlled, Tolerating Diet - Review of Systems General: Reports: No Symptoms HEENT: Reports: No Symptoms Pulmonary: Reports: No Symptoms Cardiovascular: Reports: No Symptoms Gastrointestinal: Reports: No Symptoms Genitourinary: Reports: No Symptoms Musculoskeletal: Reports: No Symptoms Skin: Reports: No Symptoms Neurological: Reports: No Symptoms Psychiatric: Reports: No Symptoms - Patient Data Vitals - Most Recent: Last Vital Signs Temp 36.2 C 01/06/17 20:00 Pulse 60 01/06/17 20:00 Resp 16 01/06/17 20:00 BP 123/60 01/06/17 20:00 Pulse Ox 99 01/06/17 20:00 Weight - Most Recent: 104 kg I&O - Last 24 hours: Intake & Output 01/06/17 01/06/17 01/06/17 06:59 14:59 22:59 Intake Total 100 1500 500 Balance 100 1500 500 Lab Results - Last 24 hrs: Laboratory Results - last 24 hr 01/06/17 01/06/17 01/06/17 Range/Units 03:45 03:45 03:45 WBC 15.83 H (4.0-11.0) K/uL RBC 3.75 L (4.50-5.90) M/uL Hgb 11.3 L (13.0-17.0) g/dL Hct 35.5 L (38.0-50.0) % MCV 94.7 (80.0-98.0) fL MCH 30.1 (27.0-32.0) pg MCHC 31.8 (31.0-37.0) g/dL RDW Std Deviation 50.0 (28.0-62.0) fl RDW Coeff of Donovan 15 (11.0-15.0) % Plt Count 158 (150-400) K/uL MPV 9.00 (7.40-12.00) fL Add Manual Diff YES Neutrophils % (Manual) 78 (48.0-80.0) % Band Neutrophils % 10 % Lymphocytes % (Manual) 4 L (16.0-40.0) % Monocytes % (Manual) 8 (0.0-15.0) % Nucleated RBC % 0.0 /100WBC Absolute Seg Neuts 12.3 Band Neutrophils # 1.6 Lymphocytes # (Manual) 0.6 Monocytes # (Manual) 1.3 Nucleated RBCs # 0 K/uL INR 2.46 H (0.86-1.11) Lactate 1.9 (0.20-2.00) mmol/L Sodium (136-146) mmol/L Potassium (3.5-5.1) mmol/L Chloride (98-110) mmol/L Carbon Dioxide (21-31) mmol/L BUN (6.0-23.0) mg/dL Creatinine (0.6-1.5) mg/dL Est Cr Clr Drug Dosing mL/min Estimated GFR (MDRD) ml/min Glucose (60-110) mg/dL Calcium (8.8-10.8) mg/dL 01/06/17 Range/Units 03:45 WBC (4.0-11.0) K/uL RBC (4.50-5.90) M/uL Hgb (13.0-17.0) g/dL Hct (38.0-50.0) % MCV (80.0-98.0) fL MCH (27.0-32.0) pg MCHC (31.0-37.0) g/dL RDW Std Deviation (28.0-62.0) fl RDW Coeff of Donovan (11.0-15.0) % Plt Count (150-400) K/uL MPV (7.40-12.00) fL Add Manual Diff Neutrophils % (Manual) (48.0-80.0) % Band Neutrophils % % Lymphocytes % (Manual) (16.0-40.0) % Monocytes % (Manual) (0.0-15.0) % Nucleated RBC % /100WBC Absolute Seg Neuts Band Neutrophils # Lymphocytes # (Manual) Monocytes # (Manual) Nucleated RBCs # K/uL INR (0.86-1.11) Lactate (0.20-2.00) mmol/L Sodium 140 (136-146) mmol/L Potassium 4.0 (3.5-5.1) mmol/L Chloride 105 (98-110) mmol/L Carbon Dioxide 25 (21-31) mmol/L BUN 20 (6.0-23.0) mg/dL Creatinine 1.4 (0.6-1.5) mg/dL Est Cr Clr Drug Dosing 38.85 mL/min Estimated GFR (MDRD) 47.8 ml/min Glucose 123 H (60-110) mg/dL Calcium 8.6 L (8.8-10.8) mg/dL Med Orders - Current: Current Medications Acetaminophen (Tylenol) 650 mg PO Q4H PRN PRN Reason: Pain/Fever Last Admin: 01/06/17 16:51 Dose: 650 mg Acetaminophen (Tylenol) 650 mg PO TID [facility] Last Admin: 01/06/17 22:03 Dose: 650 mg Sodium Chloride (Normal Saline) 1,000 mls @ 75 mls/hr IV ASDIRECTED [facility] Last Admin: 01/06/17 11:28 Dose: 75 mls/hr Vancomycin HCl 1,500 mg/ (Sodium Chloride) 500 mls @ 250 mls/hr IV Q24H [facility] Last Admin: 01/06/17 08:10 Dose: 250 mls/hr Sodium Chloride (Saline Flush) 10 ml FLUSH ASDIRECTED PRN PRN Reason: Keep Vein Open Sodium Chloride (Saline Flush) 2.5 ml FLUSH ASDIRECTED PRN PRN Reason: Keep Vein Open Tramadol HCl (Ultram) 50 mg PO QID [facility] Last Admin: 01/06/17 20:16 Dose: 50 mg Vancomycin HCl (Pharmacy To Dose - Vancomycin) 1 dose .XX ASDIRECTED [facility] Discontinued Medications Acetaminophen (Tylenol) 650 mg PO NOW ONE Stop: 01/05/17 21:45 Last Admin: 01/05/17 22:35 Dose: 650 mg Levofloxacin/Dextrose 500 mg/ (Premix) 100 mls @ 100 mls/hr IV ONETIME ONE Stop: 01/06/17 01:47 Last Admin: 01/06/17 01:06 Dose: 100 mls/hr Ketorolac Tromethamine (Toradol) 30 mg IVPUSH ONETIME ONE Stop: 01/06/17 00:41 Last Admin: 01/06/17 01:13 Dose: Not Given Ketorolac Tromethamine (Toradol) 30 mg IVPUSH ONETIME ONE Stop: 01/06/17 00:41 Last Admin: 01/06/17 01:05 Dose: 30 mg Tramadol HCl (Ultram) 50 mg PO QID [facility] Last Admin: 01/06/17 14:16 Dose: 50 mg - Exam General: Reports: Alert HEENT: Reports: Pupils Equal, Pupils Reactive, EOMI, Mucous Membr. Moist/[place] Neck: Reports: Supple Lungs: Reports: Clear to Auscultation, Normal Respiratory Effort Cardiovascular: Reports: Regular Rate, Regular Rhythm GI/Abdominal Exam: Normal Bowel Sounds, Soft, Non-Tender, No Organomegaly, No Distention, No Abnormal Bruit, No Mass, Pelvis Stable (Male) Exam: No Hernia, Normal Inspection, Normal Prostate, Circumcised Rectal (Males) Exam: Normal Exam, Normal Rectal Tone, Prostate Normal Back Exam: Reports: Normal Inspection, Full Range of Motion Extremities: Normal Inspection, Normal Range of Motion, Non-Tender, No Pedal Edema, Normal Capillary Refill Skin: Reports: Warm, Dry, Intact Wound/Incisions: Reports: Healing Well Neurological: Reports: No New Focal Deficit Psy/Mental Status: Reports: Alert, Normal Affect, Normal Mood *Q Meaningful Use (DIS) - VTE *Q VTE Criteria *Q: VTE Mechanical Contraindications *Q: At Risk for Falls - Stroke *Q Stroke Criteria *Q: - AMI *Q AMI Criteria *Q:
[2017-01-07] MEDS: traMADol 50 MG Tab PO SCH ×5 (00:10→23:47)
[2017-01-07] MEDS: Sodium Chloride 0.9% 1,000 ML IV SCH (00:12)
[2017-01-07] MEDS: Acetaminophen 325 MG Tab PO SCH ×3 (05:47→21:53)
[2017-01-07] MEDS: Acetaminophen 325 MG Tab PO PRN (08:25)
[2017-01-07] MEDS ORDERED: Sodium Chloride 0.9% 500 ML IV SCH (10:30)
--- NOTE | 2017-01-07 12:37 | PCM.PN ---
- General Info Date of Service: 01/07/17 Subjective Update: Ozzie is been doing well since his admission to the hospital. He is not complaining of any abdominal pain and shortness of breath any chest palpitations any fevers any headaches. Her sick staff did note increased erythema and redness and warmth to touch of his right thigh. Upon evaluation of the right side there is some erythema and redness and upon inspection of his ulcer there is some skin break ground on the gluteal fold of the right buttocks. However overall the patient is doing well no signs of fluid retention or CHF-like symptoms. The patient is denying any systemic findings. In taking appropriate by mouth and not having any difficulty in terms of diarrhea or constipation. - Patient Data Vitals - Most Recent: Last Vital Signs Temp 36.7 C 01/07/17 07:58 Pulse 65 01/07/17 07:58 Resp 20 01/07/17 07:58 BP 148/68 H 01/07/17 07:58 Pulse Ox 98 01/07/17 10:50 Weight - Most Recent: 105 kg I&O - Last 24 Hours: Intake & Output 01/06/17 01/07/17 01/07/17 22:59 06:59 14:59 Intake Total 500 1695 500 Output Total 200 Balance 500 1495 500 Lab Results Last 24 Hours: Laboratory Results - last 24 hr 01/07/17 01/07/17 01/07/17 Range/Units 04:55 04:55 08:42 WBC 11.44 H (4.0-11.0) K/uL RBC 3.44 L (4.50-5.90) M/uL Hgb 10.5 L (13.0-17.0) g/dL Hct 32.7 L (38.0-50.0) % MCV 95.1 (80.0-98.0) fL MCH 30.5 (27.0-32.0) pg MCHC 32.1 (31.0-37.0) g/dL RDW Std Deviation 53.0 (28.0-62.0) fl RDW Coeff of Donovan 15 (11.0-15.0) % Plt Count 149 L (150-400) K/uL MPV 9.20 (7.40-12.00) fL Neut % (Auto) 82.6 H (48.0-80.0) % Lymph % (Auto) 8.9 L (16.0-40.0) % Dyer % (Auto) 8.1 (0.0-15.0) % Eos % (Auto) 0.3 (0.0-7.0) % Baso % (Auto) 0.1 (0.0-1.5) % Neut # (Auto) 9.4 H (1.4-5.7) K/uL Lymph # (Auto) 1.0 (0.6-2.4) K/uL Dyer # (Auto) 0.9 H (0.0-0.8) K/uL Eos # (Auto) 0.0 (0.0-0.7) K/uL Baso # (Auto) 0.0 (0.0-0.1) K/uL Nucleated RBC % 0.0 /100WBC Nucleated RBCs # 0 K/uL INR 2.28 H (0.86-1.11) Sodium 140 (136-146) mmol/L Potassium 4.1 (3.5-5.1) mmol/L Chloride 107 (98-110) mmol/L Carbon Dioxide 25 (21-31) mmol/L BUN 31 H (6.0-23.0) mg/dL Creatinine 1.4 (0.6-1.5) mg/dL Est Cr Clr Drug Dosing 38.85 mL/min Estimated GFR (MDRD) 47.8 ml/min Glucose 122 H (60-110) mg/dL Calcium 8.5 L (8.8-10.8) mg/dL Total Bilirubin 0.5 (0.1-1.5) mg/dL AST 22 (5-40) IU/L ALT 11 (8-54) IU/L Alkaline Phosphatase 76 (40-150) Total Protein 5.5 L (6.0-8.0) g/dL Albumin 3.1 L (3.4-4.8) g/dL Globulin 2.4 (2.0-3.5) g/dL Albumin/Globulin Ratio 1.3 (1.3-2.8) Med Orders - Current: Current Medications Acetaminophen (Tylenol) 650 mg PO Q4H PRN PRN Reason: Pain/Fever Last Admin: 01/07/17 08:25 Dose: 650 mg Acetaminophen (Tylenol) 650 mg PO TID [facility] Last Admin: 01/07/17 05:47 Dose: 650 mg Sodium Chloride (Normal Saline) 1,000 mls @ 75 mls/hr IV ASDIRECTED [facility] Last Admin: 01/07/17 00:12 Dose: 75 mls/hr Vancomycin HCl 1,500 mg/ (Sodium Chloride) 500 mls @ 250 mls/hr IV Q24H [facility] Last Admin: 01/07/17 08:07 Dose: 250 mls/hr Sodium Chloride (Normal Saline) 500 mls @ 50 mls/hr IV ASDIRECTED [facility] Last Admin: 01/07/17 10:41 Dose: 50 mls/hr Sodium Chloride (Saline Flush) 10 ml FLUSH ASDIRECTED PRN PRN Reason: Keep Vein Open Sodium Chloride (Saline Flush) 2.5 ml FLUSH ASDIRECTED PRN PRN Reason: Keep Vein Open Tramadol HCl (Ultram) 50 mg PO QID [facility] Last Admin: 01/07/17 11:26 Dose: 50 mg Vancomycin HCl (Pharmacy To Dose - Vancomycin) 1 dose .XX ASDIRECTED [facility] Discontinued Medications Acetaminophen (Tylenol) 650 mg PO NOW ONE Stop: 01/05/17 21:45 Last Admin: 01/05/17 22:35 Dose: 650 mg Levofloxacin/Dextrose 500 mg/ (Premix) 100 mls @ 100 mls/hr IV ONETIME ONE Stop: 01/06/17 01:47 Last Admin: 01/06/17 01:06 Dose: 100 mls/hr Ketorolac Tromethamine (Toradol) 30 mg IVPUSH ONETIME ONE Stop: 01/06/17 00:41 Last Admin: 01/06/17 01:13 Dose: Not Given Ketorolac Tromethamine (Toradol) 30 mg IVPUSH ONETIME ONE Stop: 01/06/17 00:41 Last Admin: 01/06/17 01:05 Dose: 30 mg Tramadol HCl (Ultram) 50 mg PO QID [facility] Last Admin: 01/06/17 14:16 Dose: 50 mg - Exam Quality Assessment: Supplemental Oxygen, Skin Breakdown General: Alert, Oriented HEENT: Pupils Equal Neck: Supple Lungs: Clear to Auscultation, Normal Respiratory Effort Cardiovascular: Regular Rate, Regular Rhythm GI/Abdominal Exam: Normal Bowel Sounds, Soft, Non-Tender (Male) Exam: Other (SANDY did not show any signs of tenderness, slightly elevated prostate smooth in nature likely mild BPH, stool did not show any chacho blood upon SANDY) Back Exam: Normal Inspection, Decreased Range of Motion Extremities: Other (right mid thigh erythema and swelling. Skin breakdown right gluteal fold continue to watch.) Wound/Incisions: No Drainage, Erythema Psy/Mental Status: Alert, Normal Affect - Problem List Review Problem List Initiated/Reviewed/Updated: Yes - My Orders Last 24 Hours: My Active Orders 01/07/17 10:09 Blood Culture x2 Reflex Set [OM.PC] Stat 01/07/17 10:23 CULTURE BLOOD [BC] Stat 01/07/17 10:30 Sodium Chloride 0.9% [Normal Saline] 500 ml IV ASDIRECTED 01/07/17 10:33 CULTURE BLOOD [BC] Stat - Plan Plan:: Assessment: #1. Fevers, elevated lactate acid level, elevated WBC, preliminary blood cultures growing gram-positive organisms all contributing to sepsis bacteremia likely group B strep as the patient has had this in the past. #2. Elevated lactate acid level now improving #3. UTI with few WBC, few bacteria, negative for leuk esterase and negative for nitrates. #4. #CT showed signs of possible colitis possible outlet obstruction etiologies to consider include prostatitis. #5. mild sacral skin breakdown of the right gluteal fold continue to watch and ensure proper skin care/wound care management is taking place $6. elevated B UN secondary to mild CHRISTY due to dehydration Plan: With the patient's infectious process likely being gram-positive organisms group B strep we will still continue with the vancomycin. Likely the patient is given need long-term IV vancomycin. As such we're getting repeat blood cultures to ensure that the patient is cleared his blood infection after which a PICC line will need to be placed for long-term IV antibiotics. We will await on the blood culture for final results for sensitivity and exact organism after which we'll make further decisions. The SANDY did not show any discomfort or pain when palpating the prostate making prostatitis less likely in terms of etiology however we will still continue to monitor. For the patient's CHRISTY we will be giving him normal saline 500 mL with a rate of 50 mL per hour.
[2017-01-08] MEDS: Acetaminophen 325 MG Tab PO SCH ×3 (06:04→21:26)
[2017-01-08] MEDS: traMADol 50 MG Tab PO SCH ×3 (06:04→17:00)
--- NOTE | 2017-01-08 19:01 | PCM.PN ---
- General Info Date of Service: 01/08/17 Subjective Update: Ozzie is doing relatively well since his hospitalization. Currently having no complaints. Just anxious to get back to the [facility] to see his . Denying any fevers chills nausea vomiting diarrhea constipation or any other symptoms. Still having that redness to touch and warmth of his right thigh. He is eating and drinking appropriately with no other complaints. - Review of Systems General: Reports: Weakness HEENT: Reports: No Symptoms Pulmonary: Reports: No Symptoms Cardiovascular: Reports: No Symptoms Gastrointestinal: Reports: No Symptoms - Patient Data Vitals - Most Recent: Last Vital Signs Temp 36.7 C 01/08/17 16:00 Pulse 63 01/08/17 16:00 Resp 16 01/08/17 16:00 BP 169/86 H 01/08/17 16:00 Pulse Ox 94 L 01/08/17 16:00 Weight - Most Recent: 107 kg I&O - Last 24 Hours: Intake & Output 01/08/17 01/08/17 01/08/17 06:59 14:59 22:59 Intake Total 600 500 736 Output Total 421 Balance 600 500 315 Lab Results Last 24 Hours: Laboratory Results - last 24 hr 01/08/17 01/08/17 01/08/17 Range/Units 05:12 05:12 05:12 WBC 8.40 (4.0-11.0) K/uL RBC 3.28 L (4.50-5.90) M/uL Hgb 9.9 L (13.0-17.0) g/dL Hct 31.3 L (38.0-50.0) % MCV 95.4 (80.0-98.0) fL MCH 30.2 (27.0-32.0) pg MCHC 31.6 (31.0-37.0) g/dL RDW Std Deviation 52.8 (28.0-62.0) fl RDW Coeff of Donovan 15 (11.0-15.0) % Plt Count 163 (150-400) K/uL MPV 9.80 (7.40-12.00) fL Neut % (Auto) 74.4 (48.0-80.0) % Lymph % (Auto) 13.0 L (16.0-40.0) % [place] % (Auto) 10.5 (0.0-15.0) % Eos % (Auto) 2.0 (0.0-7.0) % Baso % (Auto) 0.1 (0.0-1.5) % Neut # (Auto) 6.3 H (1.4-5.7) K/uL Lymph # (Auto) 1.1 (0.6-2.4) K/uL [place] # (Auto) 0.9 H (0.0-0.8) K/uL Eos # (Auto) 0.2 (0.0-0.7) K/uL Baso # (Auto) 0.0 (0.0-0.1) K/uL Nucleated RBC % 0.0 /100WBC Nucleated RBCs # 0 K/uL INR 1.34 H (0.86-1.11) Sodium 137 (136-146) mmol/L Potassium 4.5 (3.5-5.1) mmol/L Chloride 107 (98-110) mmol/L Carbon Dioxide 23 (21-31) mmol/L BUN 30 H (6.0-23.0) mg/dL Creatinine 1.2 (0.6-1.5) mg/dL Est Cr Clr Drug Dosing 45.13 mL/min Estimated GFR (MDRD) 57.1 ml/min Glucose 110 (60-110) mg/dL Calcium 8.6 L (8.8-10.8) mg/dL Manuel Results Last 24 Hours: Microbiology 01/07/17 10:33 Aerobic Blood Culture - Preliminary Blood - Venous - Lab Draw NO GROWTH AFTER 1 DAY Anaerobic Blood Culture - Preliminary NO GROWTH AFTER 1 DAY 01/07/17 10:23 Aerobic Blood Culture - Preliminary Blood - Venous NO GROWTH AFTER 1 DAY Anaerobic Blood Culture - Preliminary NO GROWTH AFTER 1 DAY Med Orders - Current: Current Medications Acetaminophen (Tylenol) 650 mg PO Q4H PRN PRN Reason: Pain/Fever Last Admin: 01/07/17 08:25 Dose: 650 mg Acetaminophen (Tylenol) 650 mg PO TID [facility] Last Admin: 01/08/17 13:10 Dose: 650 mg Sodium Chloride (Normal Saline) 1,000 mls @ 75 mls/hr IV ASDIRECTED [facility] Last Admin: 01/07/17 00:12 Dose: 75 mls/hr Vancomycin HCl 1,500 mg/ (Sodium Chloride) 500 mls @ 250 mls/hr IV Q24H [facility] Last Admin: 01/08/17 08:00 Dose: 250 mls/hr Sodium Chloride (Normal Saline) 500 mls @ 50 mls/hr IV ASDIRECTED [facility] Last Infusion: 01/07/17 23:30 Dose: Infused Sodium Chloride (Saline Flush) 10 ml FLUSH ASDIRECTED PRN PRN Reason: Keep Vein Open Sodium Chloride (Saline Flush) 2.5 ml FLUSH ASDIRECTED PRN PRN Reason: Keep Vein Open Tramadol HCl (Ultram) 50 mg PO QID [facility] Last Admin: 01/08/17 17:00 Dose: 50 mg Vancomycin HCl (Pharmacy To Dose - Vancomycin) 1 dose .XX ASDIRECTED [facility] Warfarin Sodium (Coumadin) 4 mg PO BEDTIME [facility] Discontinued Medications Acetaminophen (Tylenol) 650 mg PO NOW ONE Stop: 01/05/17 21:45 Last Admin: 01/05/17 22:35 Dose: 650 mg Levofloxacin/Dextrose 500 mg/ (Premix) 100 mls @ 100 mls/hr IV ONETIME ONE Stop: 01/06/17 01:47 Last Admin: 01/06/17 01:06 Dose: 100 mls/hr Ketorolac Tromethamine (Toradol) 30 mg IVPUSH ONETIME ONE Stop: 01/06/17 00:41 Last Admin: 01/06/17 01:13 Dose: Not Given Ketorolac Tromethamine (Toradol) 30 mg IVPUSH ONETIME ONE Stop: 01/06/17 00:41 Last Admin: 01/06/17 01:05 Dose: 30 mg Tramadol HCl (Ultram) 50 mg PO QID [facility] Last Admin: 01/06/17 14:16 Dose: 50 mg - Exam General: Alert, Oriented HEENT: Pupils Equal Neck: Supple Lungs: Clear to Auscultation, Normal Respiratory Effort Cardiovascular: Regular Rate, Regular Rhythm GI/Abdominal Exam: Normal Bowel Sounds Back Exam: Other (Skin breakdown/sacral ulcer) Extremities: Normal Inspection Psy/Mental Status: Alert, Normal Affect - Problem List Review Problem List Initiated/Reviewed/Updated: Yes - My Orders Last 24 Hours: My Active Orders 01/08/17 21:00 Warfarin [Coumadin] 4 mg PO BEDTIME - Plan Plan:: Assessment: #1. Fevers, elevated lactate acid level, elevated WBC, blood cultures are growing group A strep pneumonia attributed to his sepsis bacteremia which she previously had with group B strep as well. #2. Elevated lactate acid level now improved #3. UTI with few WBC, few bacteria, negative for leuk esterase and negative for nitrates. #4. #CT showed signs of possible colitis possible outlet obstruction etiologies to consider include prostatitis. #5. mild sacral skin breakdown of the right gluteal fold continue to watch and ensure proper skin care/wound care management is taking place #6. elevated BUN secondary to mild CHRISTY due to dehydration now improving #7. History of atrial fibrillation with current INR being subtherapeutic restart warfarin Plan: With the patient's infectious process beinggroup B strep we shall still continue with the vancomycin. Likely the patient is given need long-term IV vancomycin. As such we're getting repeat blood cultures to ensure that the patient is cleared his blood infection after which a PICC line will need to be placed for long-term IV antibiotics. We will await on the blood culture for final results for sensitivity and exact organism after which we'll make further decisions. The SANDY did not show any discomfort or pain when palpating the prostate making prostatitis less likely in terms of etiology however we will still continue to monitor. As well patient received an echocardiogram today to assess for endocarditis. He also noted the patient's warfarin back up due to his INR dropping low subtherapeutic levels
[2017-01-08] MEDS: Warfarin 2 MG Tab PO SCH (21:26)
[2017-01-08] MEDS ORDERED: Lidocaine 5% Oint 35.44 GM Tube TOP PRN (22:39)
[2017-01-09] MEDS: traMADol 50 MG Tab PO SCH ×4 (00:15→17:17)
[2017-01-09] MEDS: Lidocaine 2% Jelly 30 ML Tube PRN ×2 (05:27→20:29)
[2017-01-09 07:44] LABS: CHLORIDE,CL 108 mmol/L (98-110); SODIUM,NA 139 mmol/L (136-146)
[2017-01-09] MEDS ORDERED: Warfarin 2 MG Tab PO ONE (08:10)
[2017-01-09] MEDS: Acetaminophen 325 MG Tab PO SCH ×3 (08:29→22:50)
[2017-01-09] MEDS ORDERED: Sodium Chloride 0.9% Irrigation 500 ML Container IRR STA (17:12)
[2017-01-09] MEDS: Furosemide 80 MG Tab PO SCH (18:20)
[2017-01-09] MEDS: Lisinopril 10 MG Tab PO SCH (18:20)
[2017-01-09] MEDS: Warfarin 2 MG Tab PO SCH (20:28)
[2017-01-09] MEDS: Acetaminophen 325 MG Tab PO PRN (20:33)
--- NOTE | 2017-01-09 22:23 | PCM.PN ---
<Cale Rivas Z - Last Filed: 01/09/17 22:17> - General Info Date of Service: 01/09/17 Subjective Update: Ozzie had a good night last night, he denied any nausea or vomiting, diarrhea or constipation. He reports no abdominal pain no shortness of breath no headaches. He is able to take good by mouth. Evaluation of his right leg shows that his erythema/possible cellulitis is improving significantly. Not complaining of any lower extremity pain. Ozzie states anxious to go back to [facility] to be with his . He understands that he needs to be medically safe prior to doing so. Functional Status: Reports: Pain Controlled - Review of Systems General: Reports: Weakness HEENT: Reports: No Symptoms Pulmonary: Reports: No Symptoms Cardiovascular: Reports: No Symptoms Gastrointestinal: Reports: No Symptoms Musculoskeletal: Reports: No Symptoms Neurological: Reports: No Symptoms - Patient Data Vitals - Most Recent: Last Vital Signs Temp 36.9 C 01/09/17 19:00 Pulse 61 01/09/17 19:00 Resp 19 01/09/17 19:00 BP 193/83 H 01/09/17 19:00 Pulse Ox 95 01/09/17 19:00 Weight - Most Recent: 106 kg I&O - Last 24 Hours: Intake & Output 01/09/17 01/09/17 01/09/17 06:59 14:59 22:59 Intake Total 118 Balance 118 Lab Results Last 24 Hours: Laboratory Results - last 24 hr 01/09/17 01/09/17 01/09/17 Range/Units 07:17 07:17 07:17 WBC 7.05 (4.0-11.0) K/uL RBC 3.41 L (4.50-5.90) M/uL Hgb 10.4 L (13.0-17.0) g/dL Hct 32.3 L (38.0-50.0) % MCV 94.7 (80.0-98.0) fL MCH 30.5 (27.0-32.0) pg MCHC 32.2 (31.0-37.0) g/dL RDW Std Deviation 50.4 (28.0-62.0) fl RDW Coeff of Donovan 15 (11.0-15.0) % Plt Count 165 (150-400) K/uL MPV 9.00 (7.40-12.00) fL Neut % (Auto) 72.1 (48.0-80.0) % Lymph % (Auto) 17.2 (16.0-40.0) % Williamson % (Auto) 8.2 (0.0-15.0) % Eos % (Auto) 2.4 (0.0-7.0) % Baso % (Auto) 0.1 (0.0-1.5) % Neut # (Auto) 5.1 (1.4-5.7) K/uL Lymph # (Auto) 1.2 (0.6-2.4) K/uL Williamson # (Auto) 0.6 (0.0-0.8) K/uL Eos # (Auto) 0.2 (0.0-0.7) K/uL Baso # (Auto) 0.0 (0.0-0.1) K/uL Nucleated RBC % 0.0 /100WBC Nucleated RBCs # 0 K/uL INR 1.17 H (0.86-1.11) Sodium (136-146) mmol/L Potassium (3.5-5.1) mmol/L Chloride (98-110) mmol/L Carbon Dioxide (21-31) mmol/L BUN (6.0-23.0) mg/dL Creatinine (0.6-1.5) mg/dL Est Cr Clr Drug Dosing mL/min Estimated GFR (MDRD) ml/min Glucose (60-110) mg/dL Calcium (8.8-10.8) mg/dL Vancomycin Trough 17.6 H (5-15) ug/mL 01/09/17 Range/Units 07:17 WBC (4.0-11.0) K/uL RBC (4.50-5.90) M/uL Hgb (13.0-17.0) g/dL Hct (38.0-50.0) % MCV (80.0-98.0) fL MCH (27.0-32.0) pg MCHC (31.0-37.0) g/dL RDW Std Deviation (28.0-62.0) fl RDW Coeff of Donovan (11.0-15.0) % Plt Count (150-400) K/uL MPV (7.40-12.00) fL Neut % (Auto) (48.0-80.0) % Lymph % (Auto) (16.0-40.0) % Williamson % (Auto) (0.0-15.0) % Eos % (Auto) (0.0-7.0) % Baso % (Auto) (0.0-1.5) % Neut # (Auto) (1.4-5.7) K/uL Lymph # (Auto) (0.6-2.4) K/uL Williamson # (Auto) (0.0-0.8) K/uL Eos # (Auto) (0.0-0.7) K/uL Baso # (Auto) (0.0-0.1) K/uL Nucleated RBC % /100WBC Nucleated RBCs # K/uL INR (0.86-1.11) Sodium 139 (136-146) mmol/L Potassium 4.2 (3.5-5.1) mmol/L Chloride 108 (98-110) mmol/L Carbon Dioxide 24 (21-31) mmol/L BUN 29 H (6.0-23.0) mg/dL Creatinine 1.1 (0.6-1.5) mg/dL Est Cr Clr Drug Dosing 49.24 mL/min Estimated GFR (MDRD) > 60.0 ml/min Glucose 106 (60-110) mg/dL Calcium 8.9 (8.8-10.8) mg/dL Vancomycin Trough (5-15) ug/mL Manuel Results Last 24 Hours: Microbiology 01/07/17 10:33 Aerobic Blood Culture - Preliminary Blood - Venous - Lab Draw NO GROWTH AFTER 2 DAYS Anaerobic Blood Culture - Preliminary NO GROWTH AFTER 2 DAYS 01/07/17 10:23 Aerobic Blood Culture - Preliminary Blood - Venous NO GROWTH AFTER 2 DAYS Anaerobic Blood Culture - Preliminary NO GROWTH AFTER 2 DAYS Med Orders - Current: Current Medications Acetaminophen (Tylenol) 650 mg PO Q4H PRN PRN Reason: Pain/Fever Last Admin: 01/09/17 20:33 Dose: 650 mg Acetaminophen (Tylenol) 650 mg PO TID [facility] Last Admin: 01/09/17 14:30 Dose: 650 mg Furosemide (Lasix) 80 mg PO DAILY [facility] Last Admin: 01/09/17 18:20 Dose: 80 mg Sodium Chloride (Normal Saline) 1,000 mls @ 75 mls/hr IV ASDIRECTED [facility] Last Admin: 01/07/17 00:12 Dose: 75 mls/hr Vancomycin HCl 1,500 mg/ (Sodium Chloride) 500 mls @ 250 mls/hr IV Q24H [facility] Last Admin: 01/09/17 08:19 Dose: 250 mls/hr Lidocaine HCl (Xylocaine 2% Jelly) 1 ml .XX Q4H PRN PRN Reason: PAIN Last Admin: 01/09/17 20:29 Dose: 1 applic Lisinopril (Prinivil) 10 mg PO DAILY [facility] Last Admin: 01/09/17 18:20 Dose: 10 mg Sodium Chloride (Saline Flush) 10 ml FLUSH ASDIRECTED PRN PRN Reason: Keep Vein Open Sodium Chloride (Saline Flush) 2.5 ml FLUSH ASDIRECTED PRN PRN Reason: Keep Vein Open Tramadol HCl (Ultram) 50 mg PO QID [facility] Last Admin: 01/09/17 17:17 Dose: 50 mg Vancomycin HCl (Pharmacy To Dose - Vancomycin) 1 dose .XX ASDIRECTED [facility] Warfarin Sodium (Coumadin) 4 mg PO BEDTIME [facility] Last Admin: 01/09/17 20:28 Dose: 4 mg Discontinued Medications Acetaminophen (Tylenol) 650 mg PO NOW ONE Stop: 01/05/17 21:45 Last Admin: 01/05/17 22:35 Dose: 650 mg Levofloxacin/Dextrose 500 mg/ (Premix) 100 mls @ 100 mls/hr IV ONETIME ONE Stop: 01/06/17 01:47 Last Admin: 01/06/17 01:06 Dose: 100 mls/hr Sodium Chloride (Normal Saline) 500 mls @ 50 mls/hr IV ASDIRECTED [facility] Last Infusion: 01/07/17 23:30 Dose: Infused Ketorolac Tromethamine (Toradol) 30 mg IVPUSH ONETIME ONE Stop: 01/06/17 00:41 Last Admin: 01/06/17 01:13 Dose: Not Given Ketorolac Tromethamine (Toradol) 30 mg IVPUSH ONETIME ONE Stop: 01/06/17 00:41 Last Admin: 01/06/17 01:05 Dose: 30 mg Lidocaine HCl (Lidocaine 5%) 1 gm TOP Q4H PRN PRN Reason: Pain Sodium Chloride (Sodium Chloride 0.9%) 500 ml IRR ASDIRECTED [facility] Stop: 01/09/17 17:13 Last Admin: 01/09/17 17:27 Dose: Not Given Tramadol HCl (Ultram) 50 mg PO QID [facility] Last Admin: 01/06/17 14:16 Dose: 50 mg Warfarin Sodium (Coumadin) 4 mg PO ONETIME ONE Stop: 01/09/17 08:11 Last Admin: 01/09/17 08:20 Dose: 4 mg - Exam Quality Assessment: Supplemental Oxygen General: Alert, Oriented, Cooperative Lungs: Clear to Auscultation Cardiovascular: Regular Rate, Regular Rhythm GI/Abdominal Exam: Normal Bowel Sounds, Other (Rectal ulcer not increasing in size.) Back Exam: Normal Inspection Extremities: Other (Right upper thigh erythema decreasing it is marked with a pen) - Problem List Review Problem List Initiated/Reviewed/Updated: Yes - My Orders Last 24 Hours: My Active Orders 01/09/17 12:11 PICC Line Insertion [CR] Routine - Plan Plan:: Assessment: #1. Fevers, elevated lactate acid level, elevated WBC, blood cultures are growing group A strep pneumonia attributed to his sepsis bacteremia which she previously had with group B strep as well. #2. Elevated lactate acid level now improved #3. UTI with few WBC, few bacteria, negative for leuk esterase and negative for nitrates. #4. #CT showed signs of possible colitis possible outlet obstruction etiologies to consider include prostatitis. #5. mild sacral skin breakdown of the right gluteal fold continue to watch and ensure proper skin care/wound care management is taking place #6. elevated BUN secondary to mild CHRISTY due to dehydration now improving #7. History of atrial fibrillation with current INR being subtherapeutic restart warfarin Plan: With the patient's infectious process beinggroup B strep we shall still continue with the vancomycin. Likely the patient is given need long-term IV vancomycin. Repeat blood cultures are negative for growth, as such we will be getting a PICC line in place for Ozzie today. He will not go back to [facility] until Thursday due to [facility]'s request. A prescription for vancomycin 6 weeks IV 1.5 g has been sent and she'll be prepared for Ozzie by Thursday. His cellulitis is improving as such we will do no further intervention at this point in time and just continue to monitor. Ozzie back up on Coumadin 4 mg daily at night, he did receive 1 additional dose of 4 mg this morning due to INR further going down. I'll reassess labs in the a.m. <[place]e - Last Filed: 01/10/17 08:30> - Patient Data Vitals - Most Recent: Last Vital Signs Temp 36.6 C 01/10/17 05:43 Pulse 56 L 01/10/17 05:43 Resp 19 01/10/17 05:43 BP 176/83 H 01/10/17 05:43 Pulse Ox 93 L 01/10/17 05:43 I&O - Last 24 Hours: Intake & Output 01/09/17 01/10/17 01/10/17 22:59 06:59 14:59 Intake Total 1260 Balance 1260 Lab Results Last 24 Hours: Laboratory Results - last 24 hr 01/10/17 01/10/17 01/10/17 Range/Units 05:11 05:50 05:50 WBC 6.11 (4.0-11.0) K/uL RBC 3.45 L (4.50-5.90) M/uL Hgb 10.5 L (13.0-17.0) g/dL Hct 32.5 L (38.0-50.0) % MCV 94.2 (80.0-98.0) fL MCH 30.4 (27.0-32.0) pg MCHC 32.3 (31.0-37.0) g/dL RDW Std Deviation 49.0 (28.0-62.0) fl RDW Coeff of Donovan 14 (11.0-15.0) % Plt Count 180 (150-400) K/uL MPV 9.70 (7.40-12.00) fL Neut % (Auto) 68.4 (48.0-80.0) % Lymph % (Auto) 18.0 (16.0-40.0) % Williamson % (Auto) 10.3 (0.0-15.0) % Eos % (Auto) 3.1 (0.0-7.0) % Baso % (Auto) 0.2 (0.0-1.5) % Neut # (Auto) 4.2 (1.4-5.7) K/uL Lymph # (Auto) 1.1 (0.6-2.4) K/uL Williamson # (Auto) 0.6 (0.0-0.8) K/uL Eos # (Auto) 0.2 (0.0-0.7) K/uL Baso # (Auto) 0.0 (0.0-0.1) K/uL Nucleated RBC % 0.0 /100WBC Nucleated RBCs # 0 K/uL INR 1.45 H (0.86-1.11) Sodium 139 (136-146) mmol/L Potassium 3.5 (3.5-5.1) mmol/L Chloride 105 (98-110) mmol/L Carbon Dioxide 25 (21-31) mmol/L BUN 26 H (6.0-23.0) mg/dL Creatinine 1.0 (0.6-1.5) mg/dL Est Cr Clr Drug Dosing 54.16 mL/min Estimated GFR (MDRD) > 60.0 ml/min Glucose 87 (60-110) mg/dL Calcium 8.8 (8.8-10.8) mg/dL Manuel Results Last 24 Hours: Microbiology 01/07/17 10:33 Aerobic Blood Culture - Preliminary Blood - Venous - Lab Draw NO GROWTH AFTER 2 DAYS Anaerobic Blood Culture - Preliminary NO GROWTH AFTER 2 DAYS 01/07/17 10:23 Aerobic Blood Culture - Preliminary Blood - Venous NO GROWTH AFTER 2 DAYS Anaerobic Blood Culture - Preliminary NO GROWTH AFTER 2 DAYS Med Orders - Current: Current Medications Acetaminophen (Tylenol) 650 mg PO Q4H PRN PRN Reason: Pain/Fever Last Admin: 01/09/17 20:33 Dose: 650 mg Acetaminophen (Tylenol) 650 mg PO TID [facility] Last Admin: 01/10/17 06:02 Dose: 650 mg Furosemide (Lasix) 80 mg PO DAILY [facility] Last Admin: 01/09/17 18:20 Dose: 80 mg Sodium Chloride (Normal Saline) 1,000 mls @ 75 mls/hr IV ASDIRECTED [facility] Last Admin: 01/07/17 00:12 Dose: 75 mls/hr Vancomycin HCl 1,500 mg/ (Sodium Chloride) 500 mls @ 250 mls/hr IV Q24H [facility] Last Admin: 01/10/17 07:41 Dose: 250 mls/hr Lidocaine HCl (Xylocaine 2% Jelly) 1 ml .XX Q4H PRN PRN Reason: PAIN Last Admin: 01/09/17 20:29 Dose: 1 applic Lisinopril (Prinivil) 10 mg PO DAILY [facility] Last Admin: 01/09/17 18:20 Dose: 10 mg Sodium Chloride (Saline Flush) 10 ml FLUSH ASDIRECTED PRN PRN Reason: Keep Vein Open Sodium Chloride (Saline Flush) 2.5 ml FLUSH ASDIRECTED PRN PRN Reason: Keep Vein Open Tramadol HCl (Ultram) 50 mg PO QID [facility] Last Admin: 01/10/17 06:01 Dose: 50 mg Vancomycin HCl (Pharmacy To Dose - Vancomycin) 1 dose .XX ASDIRECTED [facility] Warfarin Sodium (Coumadin) 4 mg PO BEDTIME [facility] Last Admin: 01/09/17 20:28 Dose: 4 mg Discontinued Medications Acetaminophen (Tylenol) 650 mg PO NOW ONE Stop: 01/05/17 21:45 Last Admin: 01/05/17 22:35 Dose: 650 mg Levofloxacin/Dextrose 500 mg/ (Premix) 100 mls @ 100 mls/hr IV ONETIME ONE Stop: 01/06/17 01:47 Last Admin: 01/06/17 01:06 Dose: 100 mls/hr Sodium Chloride (Normal Saline) 500 mls @ 50 mls/hr IV ASDIRECTED [facility] Last Infusion: 01/07/17 23:30 Dose: Infused Ketorolac Tromethamine (Toradol) 30 mg IVPUSH ONETIME ONE Stop: 01/06/17 00:41 Last Admin: 01/06/17 01:13 Dose: Not Given Ketorolac Tromethamine (Toradol) 30 mg IVPUSH ONETIME ONE Stop: 01/06/17 00:41 Last Admin: 01/06/17 01:05 Dose: 30 mg Lidocaine HCl (Lidocaine 5%) 1 gm TOP Q4H PRN PRN Reason: Pain Sodium Chloride (Sodium Chloride 0.9%) 500 ml IRR ASDIRECTED [facility] Stop: 01/09/17 17:13 Last Admin: 01/09/17 17:27 Dose: Not Given Tramadol HCl (Ultram) 50 mg PO QID [facility] Last Admin: 01/06/17 14:16 Dose: 50 mg Warfarin Sodium (Coumadin) 4 mg PO ONETIME ONE Stop: 01/09/17 08:11 Last Admin: 01/09/17 08:20 Dose: 4 mg - Free Text/Narrative Note: I have examined this patient and have seen his lab studies. I have discussed this patient with Dr. Rivas and I concur with his plan. The right buttock skin ulceration was present on admission and is not needing a dressing.
[2017-01-10] MEDS: traMADol 50 MG Tab PO SCH ×5 (00:59→23:59)
[2017-01-10] MEDS: Acetaminophen 325 MG Tab PO SCH ×3 (06:02→22:03)
[2017-01-10 06:58] LABS: CHLORIDE,CL 105 mmol/L (98-110); SODIUM,NA 139 mmol/L (136-146)
[2017-01-10] MEDS: Furosemide 80 MG Tab PO SCH (08:53)
[2017-01-10] MEDS: Lisinopril 10 MG Tab PO SCH (08:55)
--- NOTE | 2017-01-10 11:28 | PCM.PN ---
<Reese Lang - Last Filed: 01/10/17 11:21> - General Info Date of Service: 01/10/17 Admission Dx/Problem (Free Text): Admission Diagnosis/Problem Admission Diagnosis/Problem Fever Subjective Update: Ozzie continues to do well. He slept well through the night and this morning has no acute concerns. He states he has no pain in his right hip and that the redness is improving with the topical Lidoderm. He did have a PICC line placed yesterday for his long-term antibiotics that he'll be discharged on on Thursday. Patient has no acute concerns including headaches, dizziness, chest pain, palpitations, shortness of breath wheezing, cough, abdominal pain, nausea vomiting, constipation, diarrhea, fever. There are no concerns from nursing. Functional Status: Reports: Pain Controlled, Tolerating Diet, Urinating - Patient Data Vitals - Most Recent: Last Vital Signs Temp 98.0 F 01/10/17 09:05 Pulse 79 01/10/17 09:55 Resp 20 01/10/17 09:05 BP 142/89 H 01/10/17 09:55 Pulse Ox 92 L 01/10/17 09:55 Weight - Most Recent: 104.5 kg I&O - Last 24 Hours: Intake & Output 01/09/17 01/10/17 01/10/17 22:59 06:59 14:59 Intake Total 1260 Balance 1260 Lab Results Last 24 Hours: Laboratory Results - last 24 hr 01/10/17 01/10/17 01/10/17 Range/Units 05:11 05:50 05:50 WBC 6.11 (4.0-11.0) K/uL RBC 3.45 L (4.50-5.90) M/uL Hgb 10.5 L (13.0-17.0) g/dL Hct 32.5 L (38.0-50.0) % MCV 94.2 (80.0-98.0) fL MCH 30.4 (27.0-32.0) pg MCHC 32.3 (31.0-37.0) g/dL RDW Std Deviation 49.0 (28.0-62.0) fl RDW Coeff of Donovan 14 (11.0-15.0) % Plt Count 180 (150-400) K/uL MPV 9.70 (7.40-12.00) fL Neut % (Auto) 68.4 (48.0-80.0) % Lymph % (Auto) 18.0 (16.0-40.0) % [place] % (Auto) 10.3 (0.0-15.0) % Eos % (Auto) 3.1 (0.0-7.0) % Baso % (Auto) 0.2 (0.0-1.5) % Neut # (Auto) 4.2 (1.4-5.7) K/uL Lymph # (Auto) 1.1 (0.6-2.4) K/uL [place] # (Auto) 0.6 (0.0-0.8) K/uL Eos # (Auto) 0.2 (0.0-0.7) K/uL Baso # (Auto) 0.0 (0.0-0.1) K/uL Nucleated RBC % 0.0 /100WBC Nucleated RBCs # 0 K/uL INR 1.45 H (0.86-1.11) Sodium 139 (136-146) mmol/L Potassium 3.5 (3.5-5.1) mmol/L Chloride 105 (98-110) mmol/L Carbon Dioxide 25 (21-31) mmol/L BUN 26 H (6.0-23.0) mg/dL Creatinine 1.0 (0.6-1.5) mg/dL Est Cr Clr Drug Dosing 54.16 mL/min Estimated GFR (MDRD) > 60.0 ml/min Glucose 87 (60-110) mg/dL Calcium 8.8 (8.8-10.8) mg/dL Manuel Results Last 24 Hours: Microbiology 01/07/17 10:33 Aerobic Blood Culture - Preliminary Blood - Venous - Lab Draw NO GROWTH AFTER 3 DAYS Anaerobic Blood Culture - Preliminary NO GROWTH AFTER 3 DAYS 01/07/17 10:23 Aerobic Blood Culture - Preliminary Blood - Venous NO GROWTH AFTER 3 DAYS Anaerobic Blood Culture - Preliminary NO GROWTH AFTER 3 DAYS Med Orders - Current: Current Medications Acetaminophen (Tylenol) 650 mg PO Q4H PRN PRN Reason: Pain/Fever Last Admin: 01/09/17 20:33 Dose: 650 mg Acetaminophen (Tylenol) 650 mg PO TID RUPINDER Last Admin: 01/10/17 06:02 Dose: 650 mg Furosemide (Lasix) 80 mg PO DAILY [facility] Last Admin: 01/10/17 08:53 Dose: 80 mg Sodium Chloride (Normal Saline) 1,000 mls @ 75 mls/hr IV ASDIRECTED [facility] Last Admin: 01/07/17 00:12 Dose: 75 mls/hr Vancomycin HCl 1,500 mg/ (Sodium Chloride) 500 mls @ 250 mls/hr IV Q24H [facility] Last Admin: 01/10/17 07:41 Dose: 250 mls/hr Lidocaine HCl (Xylocaine 2% Jelly) 1 ml .XX Q4H PRN PRN Reason: PAIN Last Admin: 01/09/17 20:29 Dose: 1 applic Lisinopril (Prinivil) 10 mg PO DAILY [facility] Last Admin: 01/10/17 08:55 Dose: 10 mg Sodium Chloride (Saline Flush) 10 ml FLUSH ASDIRECTED PRN PRN Reason: Keep Vein Open Sodium Chloride (Saline Flush) 2.5 ml FLUSH ASDIRECTED PRN PRN Reason: Keep Vein Open Tramadol HCl (Ultram) 50 mg PO QID [facility] Last Admin: 01/10/17 06:01 Dose: 50 mg Vancomycin HCl (Pharmacy To Dose - Vancomycin) 1 dose .XX ASDIRECTED [facility] Warfarin Sodium (Coumadin) 4 mg PO BEDTIME [facility] Last Admin: 01/09/17 20:28 Dose: 4 mg Discontinued Medications Acetaminophen (Tylenol) 650 mg PO NOW ONE Stop: 01/05/17 21:45 Last Admin: 01/05/17 22:35 Dose: 650 mg Levofloxacin/Dextrose 500 mg/ (Premix) 100 mls @ 100 mls/hr IV ONETIME ONE Stop: 01/06/17 01:47 Last Admin: 01/06/17 01:06 Dose: 100 mls/hr Sodium Chloride (Normal Saline) 500 mls @ 50 mls/hr IV ASDIRECTED [facility] Last Infusion: 01/07/17 23:30 Dose: Infused Ketorolac Tromethamine (Toradol) 30 mg IVPUSH ONETIME ONE Stop: 01/06/17 00:41 Last Admin: 01/06/17 01:13 Dose: Not Given Ketorolac Tromethamine (Toradol) 30 mg IVPUSH ONETIME ONE Stop: 01/06/17 00:41 Last Admin: 01/06/17 01:05 Dose: 30 mg Lidocaine HCl (Lidocaine 5%) 1 gm TOP Q4H PRN PRN Reason: Pain Sodium Chloride (Sodium Chloride 0.9%) 500 ml IRR ASDIRECTED STA Stop: 01/09/17 17:13 Last Admin: 01/09/17 17:27 Dose: Not Given Tramadol HCl (Ultram) 50 mg PO QID RUPINDER Last Admin: 01/06/17 14:16 Dose: 50 mg Warfarin Sodium (Coumadin) 4 mg PO ONETIME ONE Stop: 01/09/17 08:11 Last Admin: 01/09/17 08:20 Dose: 4 mg - Exam Quality Assessment: DVT Prophylaxis (scds) General: Alert, Oriented, Cooperative, No Acute Distress Neck: Supple Lungs: Clear to Auscultation, Normal Respiratory Effort Cardiovascular: Regular Rate, Regular Rhythm GI/Abdominal Exam: Normal Bowel Sounds, Soft, Non-Tender, No Organomegaly, No Distention, No Abnormal Bruit, No Mass Back Exam: Other (Patient does have a small superficial ulcer at the superior part of the gluteal cleft. No active discharge or bleeding appreciated. Mild redness appreciated.) Extremities: Normal Inspection, No Pedal Edema, Normal Capillary Refill, Other ( Patient has no feeling in his lower extremities bilaterally. The redness at the right hip is improved and the patient denies any pain. There is no warmth to palpation of the right hip.) Peripheral Pulses: 2+: Radial (L), Radial (R), Posterior Tibial (L), Posterior Tibial (R) Skin: Warm, Dry, Intact Wound/Incisions: Healing Well Neurological: No New Focal Deficit Psy/Mental Status: Alert, Normal Affect, Normal Mood - Problem List & Annotations (1) Subtherapeutic international normalized ratio (INR) SNOMED Code(s): 745879445 Code(s): R79.1 - ABNORMAL COAGULATION PROFILE Status: Acute Current Visit : Yes (2) Bacteremia due to group B Streptococcus SNOMED Code(s): 801180803581, 613706117842 Code(s): R78.81 - BACTEREMIA Status: Acute Priority: High Current Visit : No - Problem List Review Problem List Initiated/Reviewed/Updated: Yes - My Orders Last 24 Hours: My Active Orders 01/09/17 18:00 Furosemide [Lasix] 80 mg PO DAILY Lisinopril [Prinivil] 10 mg PO DAILY - Plan Plan:: Assessment: #1. Fevers, elevated lactate acid level, elevated WBC, blood cultures are growing group B strep pneumonia attributed to his sepsis bacteremia which he previously had with group B strep as well. -Sensitivities still pending. -Prescription for 6 weeks of IV vancomycin has been sent to [facility]. -Patient will continue on IV vancomycin throughout admission. #2. UTI with few WBC, few bacteria, negative for leuk esterase and negative for nitrates. -Currently on IV vancomycin for his group B strep bacteremia. This should cover for his UTI as well. #3. mild sacral skin breakdown of the right gluteal fold continue to watch and ensure proper skin care/wound care management is taking place #4. elevated BUN secondary to mild CHRISTY due to dehydration -Kidney function continues to improve. #5. History of atrial fibrillation with current INR being subtherapeutic -INR this morning was 1.45. He'll receive his 4 mg dose of warfarin at bedtime tonight and we'll recheck his INR in the morning. <Nato Clemente - Last Filed: 01/10/17 12:38> - Patient Data Vitals - Most Recent: Last Vital Signs Temp 36.7 C 01/10/17 09:05 Pulse 79 01/10/17 09:55 Resp 20 01/10/17 09:05 BP 142/89 H 01/10/17 09:55 Pulse Ox 92 L 01/10/17 09:55 I&O - Last 24 Hours: Intake & Output 01/09/17 01/10/17 01/10/17 22:59 06:59 14:59 Intake Total 1260 Balance 1260 Lab Results Last 24 Hours: Laboratory Results - last 24 hr 01/10/17 01/10/17 01/10/17 Range/Units 05:11 05:50 05:50 WBC 6.11 (4.0-11.0) K/uL RBC 3.45 L (4.50-5.90) M/uL Hgb 10.5 L (13.0-17.0) g/dL Hct 32.5 L (38.0-50.0) % MCV 94.2 (80.0-98.0) fL MCH 30.4 (27.0-32.0) pg MCHC 32.3 (31.0-37.0) g/dL RDW Std Deviation 49.0 (28.0-62.0) fl RDW Coeff of Donovan 14 (11.0-15.0) % Plt Count 180 (150-400) K/uL MPV 9.70 (7.40-12.00) fL Neut % (Auto) 68.4 (48.0-80.0) % Lymph % (Auto) 18.0 (16.0-40.0) % [place] % (Auto) 10.3 (0.0-15.0) % Eos % (Auto) 3.1 (0.0-7.0) % Baso % (Auto) 0.2 (0.0-1.5) % Neut # (Auto) 4.2 (1.4-5.7) K/uL Lymph # (Auto) 1.1 (0.6-2.4) K/uL [place] # (Auto) 0.6 (0.0-0.8) K/uL Eos # (Auto) 0.2 (0.0-0.7) K/uL Baso # (Auto) 0.0 (0.0-0.1) K/uL Nucleated RBC % 0.0 /100WBC Nucleated RBCs # 0 K/uL INR 1.45 H (0.86-1.11) Sodium 139 (136-146) mmol/L Potassium 3.5 (3.5-5.1) mmol/L Chloride 105 (98-110) mmol/L Carbon Dioxide 25 (21-31) mmol/L BUN 26 H (6.0-23.0) mg/dL Creatinine 1.0 (0.6-1.5) mg/dL Est Cr Clr Drug Dosing 54.16 mL/min Estimated GFR (MDRD) > 60.0 ml/min Glucose 87 (60-110) mg/dL Calcium 8.8 (8.8-10.8) mg/dL Manuel Results Last 24 Hours: Microbiology 01/07/17 10:33 Aerobic Blood Culture - Preliminary Blood - Venous - Lab Draw NO GROWTH AFTER 3 DAYS Anaerobic Blood Culture - Preliminary NO GROWTH AFTER 3 DAYS 01/07/17 10:23 Aerobic Blood Culture - Preliminary Blood - Venous NO GROWTH AFTER 3 DAYS Anaerobic Blood Culture - Preliminary NO GROWTH AFTER 3 DAYS Med Orders - Current: Current Medications Acetaminophen (Tylenol) 650 mg PO Q4H PRN PRN Reason: Pain/Fever Last Admin: 01/09/17 20:33 Dose: 650 mg Acetaminophen (Tylenol) 650 mg PO TID [facility] Last Admin: 01/10/17 06:02 Dose: 650 mg Furosemide (Lasix) 80 mg PO DAILY [facility] Last Admin: 01/10/17 08:53 Dose: 80 mg Sodium Chloride (Normal Saline) 1,000 mls @ 75 mls/hr IV ASDIRECTED [facility] Last Admin: 01/07/17 00:12 Dose: 75 mls/hr Vancomycin HCl 1,500 mg/ (Sodium Chloride) 500 mls @ 250 mls/hr IV Q24H [facility] Last Admin: 01/10/17 07:41 Dose: 250 mls/hr Lidocaine HCl (Xylocaine 2% Jelly) 1 ml .XX Q4H PRN PRN Reason: PAIN Last Admin: 01/09/17 20:29 Dose: 1 applic Lisinopril (Prinivil) 10 mg PO DAILY [facility] Last Admin: 01/10/17 08:55 Dose: 10 mg Sodium Chloride (Saline Flush) 10 ml FLUSH ASDIRECTED PRN PRN Reason: Keep Vein Open Sodium Chloride (Saline Flush) 2.5 ml FLUSH ASDIRECTED PRN PRN Reason: Keep Vein Open Tramadol HCl (Ultram) 50 mg PO QID [facility] Last Admin: 01/10/17 11:25 Dose: 50 mg Vancomycin HCl (Pharmacy To Dose - Vancomycin) 1 dose .XX ASDIRECTED [facility] Warfarin Sodium (Coumadin) 4 mg PO BEDTIME [facility] Last Admin: 01/09/17 20:28 Dose: 4 mg Discontinued Medications Acetaminophen (Tylenol) 650 mg PO NOW ONE Stop: 01/05/17 21:45 Last Admin: 01/05/17 22:35 Dose: 650 mg Levofloxacin/Dextrose 500 mg/ (Premix) 100 mls @ 100 mls/hr IV ONETIME ONE Stop: 01/06/17 01:47 Last Admin: 01/06/17 01:06 Dose: 100 mls/hr Sodium Chloride (Normal Saline) 500 mls @ 50 mls/hr IV ASDIRECTED [facility] Last Infusion: 01/07/17 23:30 Dose: Infused Ketorolac Tromethamine (Toradol) 30 mg IVPUSH ONETIME ONE Stop: 01/06/17 00:41 Last Admin: 01/06/17 01:13 Dose: Not Given Ketorolac Tromethamine (Toradol) 30 mg IVPUSH ONETIME ONE Stop: 01/06/17 00:41 Last Admin: 01/06/17 01:05 Dose: 30 mg Lidocaine HCl (Lidocaine 5%) 1 gm TOP Q4H PRN PRN Reason: Pain Sodium Chloride (Sodium Chloride 0.9%) 500 ml IRR ASDIRECTED STA Stop: 01/09/17 17:13 Last Admin: 01/09/17 17:27 Dose: Not Given Tramadol HCl (Ultram) 50 mg PO QID RUPINDER Last Admin: 01/06/17 14:16 Dose: 50 mg Warfarin Sodium (Coumadin) 4 mg PO ONETIME ONE Stop: 01/09/17 08:11 Last Admin: 01/09/17 08:20 Dose: 4 mg - Free Text/Narrative Note: Dr. Coni Clemente MD: I have examined this patient, I have looked at his data and have discussed his care in detail with Dr. Lang. I agree with his assessments and plan.
[2017-01-10] MEDS ORDERED: Lisinopril 5 MG Tab PO ONE (14:17)
[2017-01-10] MEDS: Acetaminophen 325 MG Tab PO PRN ×2 (15:53→20:03)
[2017-01-10] MEDS: Warfarin 2 MG Tab PO SCH (20:03)
[2017-01-10] MEDS ORDERED: Lisinopril 10 MG Tab PO ONE (21:39)
[2017-01-11] MEDS: Acetaminophen 325 MG Tab PO PRN (03:22)
[2017-01-11] MEDS: Acetaminophen 325 MG Tab PO SCH ×3 (05:58→21:23)
[2017-01-11] MEDS: traMADol 50 MG Tab PO SCH ×4 (05:58→23:06)
[2017-01-11 06:27] LABS: CHLORIDE,CL 104 mmol/L (98-110); SODIUM,NA 141 mmol/L (136-146)
[2017-01-11] MEDS: Furosemide 80 MG Tab PO SCH (07:59)
[2017-01-11] MEDS: Lisinopril 10 MG Tab PO SCH (08:00)
[2017-01-11] MEDS ORDERED: amLODIPine 5 MG Tab PO SCH (12:00)
[2017-01-11] MEDS ORDERED: Potassium Chloride 20 MEQ Tab.ER PO ONE (13:49)
[2017-01-11] MEDS ORDERED: Bisacodyl 10 MG Supp RECTAL PRN (13:50)
--- NOTE | 2017-01-11 17:01 | PCM.PN ---
<Cale Rivas Z - Last Filed: 01/11/17 16:55> - General Info Date of Service: 01/11/17 Admission Dx/Problem (Free Text): Ozzie set up a good night overnight, he he is not having any complaints of any nausea or vomiting, or any headaches. He is experiencing elevated blood pressures along with constipation for the past couple of days. We will be introducing a secondary hypertensive and also stool softeners to help the patient in terms of his constipation. He is anxious to go home which we hope she 'll happen tomorrow once Pablo is able to except the patient. Patient however is taking an okay amount of by mouth, he did look slightly dry today and did not seem like he was taking that much in terms of fluids. When asked about that he said that he just felt like sleeping in the morning and would drink once he was well rested. His erythema on his right thigh is significantly better and is no longer having any complaints. - Review of Systems General: Reports: Weakness Pulmonary: Reports: Cough Gastrointestinal: Reports: Constipation - Patient Data Vitals - Most Recent: Last Vital Signs Temp 37.0 C 01/11/17 16:00 Pulse 63 01/11/17 16:00 Resp 16 01/11/17 16:00 BP 190/95 H 01/11/17 16:00 Pulse Ox 95 01/11/17 16:00 Weight - Most Recent: 101 kg I&O - Last 24 Hours: Intake & Output 01/11/17 01/11/17 01/11/17 06:59 14:59 22:59 Intake Total 100 500 710 Output Total 1226 Balance -1126 500 710 Lab Results Last 24 Hours: Laboratory Results - last 24 hr 01/11/17 01/11/17 01/11/17 Range/Units 05:30 05:30 05:30 WBC 6.72 (4.0-11.0) K/uL RBC 3.52 L (4.50-5.90) M/uL Hgb 10.8 L (13.0-17.0) g/dL Hct 32.6 L (38.0-50.0) % MCV 92.6 (80.0-98.0) fL MCH 30.7 (27.0-32.0) pg MCHC 33.1 (31.0-37.0) g/dL RDW Std Deviation 47.6 (28.0-62.0) fl RDW Coeff of Donovan 14 (11.0-15.0) % Plt Count 194 (150-400) K/uL MPV 9.90 (7.40-12.00) fL Neut % (Auto) 68.6 (48.0-80.0) % Lymph % (Auto) 15.0 L (16.0-40.0) % Morton % (Auto) 12.6 (0.0-15.0) % Eos % (Auto) 3.7 (0.0-7.0) % Baso % (Auto) 0.1 (0.0-1.5) % Neut # (Auto) 4.6 (1.4-5.7) K/uL Lymph # (Auto) 1.0 (0.6-2.4) K/uL Morton # (Auto) 0.9 H (0.0-0.8) K/uL Eos # (Auto) 0.3 (0.0-0.7) K/uL Baso # (Auto) 0.0 (0.0-0.1) K/uL Nucleated RBC % 0.0 /100WBC Nucleated RBCs # 0 K/uL INR 1.75 H (0.86-1.11) Sodium 141 (136-146) mmol/L Potassium 3.1 L (3.5-5.1) mmol/L Chloride 104 (98-110) mmol/L Carbon Dioxide 27 (21-31) mmol/L BUN 25 H (6.0-23.0) mg/dL Creatinine 1.1 (0.6-1.5) mg/dL Est Cr Clr Drug Dosing 49.24 mL/min Estimated GFR (MDRD) > 60.0 ml/min Glucose 102 (60-110) mg/dL Calcium 8.7 L (8.8-10.8) mg/dL Manuel Results Last 24 Hours: Microbiology 01/07/17 10:33 Aerobic Blood Culture - Preliminary Blood - Venous - Lab Draw NO GROWTH AFTER 4 DAYS Anaerobic Blood Culture - Preliminary NO GROWTH AFTER 4 DAYS 01/07/17 10:23 Aerobic Blood Culture - Preliminary Blood - Venous NO GROWTH AFTER 4 DAYS Anaerobic Blood Culture - Preliminary NO GROWTH AFTER 4 DAYS Med Orders - Current: Current Medications Acetaminophen (Tylenol) 650 mg PO Q4H PRN PRN Reason: Pain/Fever Last Admin: 01/11/17 03:22 Dose: 650 mg Acetaminophen (Tylenol) 650 mg PO TID PENDING SALE TO [facility] Last Admin: 01/11/17 14:10 Dose: 650 mg Amlodipine Besylate (Norvasc) 5 mg PO DAILY [facility] Last Admin: 01/11/17 12:46 Dose: 5 mg Bisacodyl (Dulcolax) 10 mg RECTAL DAILY PRN PRN Reason: Constipation Last Admin: 01/11/17 14:11 Dose: 10 mg Furosemide (Lasix) 80 mg PO DAILY [facility] Last Admin: 01/11/17 07:59 Dose: 80 mg Sodium Chloride (Normal Saline) 1,000 mls @ 75 mls/hr IV ASDIRECTED [facility]END[facility] SALE TO [facility] Last Admin: 01/07/17 00:12 Dose: 75 mls/hr Vancomycin HCl 1,500 mg/ (Sodium Chloride) 500 mls @ 250 mls/hr IV Q24H [facility] TO [facility] Last Admin: 01/11/17 07:41 Dose: 250 mls/hr Lidocaine HCl (Xylocaine 2% Jelly) 1 ml .XX Q4H PRN PRN Reason: PAIN Last Admin: 01/09/17 20:29 Dose: 1 applic Lisinopril (Prinivil) 20 mg PO DAILY [facility] Last Admin: 01/11/17 08:00 Dose: 20 mg Sodium Chloride (Saline Flush) 10 ml FLUSH ASDIRECTED PRN PRN Reason: Keep Vein Open Sodium Chloride (Saline Flush) 2.5 ml FLUSH ASDIRECTED PRN PRN Reason: Keep Vein Open Tramadol HCl (Ultram) 50 mg PO QID [facility] TO [facility] Last Admin: 01/11/17 12:29 Dose: 50 mg Vancomycin HCl (Pharmacy To Dose - Vancomycin) 1 dose .XX ASDIRECTED PEND[facility] SALE TO [facility] Warfarin Sodium (Coumadin) 4 mg PO BEDTIME [facility] TO [facility] Last Admin: 01/10/17 20:03 Dose: 4 mg Discontinued Medications Acetaminophen (Tylenol) 650 mg PO NOW ONE Stop: 01/05/17 21:45 Last Admin: 01/05/17 22:35 Dose: 650 mg Levofloxacin/Dextrose 500 mg/ (Premix) 100 mls @ 100 mls/hr IV ONETIME ONE Stop: 01/06/17 01:47 Last Admin: 01/06/17 01:06 Dose: 100 mls/hr Sodium Chloride (Normal Saline) 500 mls @ 50 mls/hr IV ASDIRECTED [facility]END[facility] SALE TO [facility] Last Infusion: 01/07/17 23:30 Dose: Infused Ketorolac Tromethamine (Toradol) 30 mg IVPUSH ONETIME ONE Stop: 01/06/17 00:41 Last Admin: 01/06/17 01:13 Dose: Not Given Ketorolac Tromethamine (Toradol) 30 mg IVPUSH ONETIME ONE Stop: 01/06/17 00:41 Last Admin: 01/06/17 01:05 Dose: 30 mg Lidocaine HCl (Lidocaine 5%) 1 gm TOP Q4H PRN PRN Reason: Pain Lisinopril (Prinivil) 10 mg PO DAILY [facility] Last Admin: 01/10/17 08:55 Dose: 10 mg Lisinopril (Prinivil) 5 mg PO ONETIME ONE Stop: 01/10/17 14:18 Last Admin: 01/10/17 14:30 Dose: 5 mg Lisinopril (Prinivil) 10 mg PO ONETIME ONE Stop: 01/10/17 21:40 Last Admin: 01/10/17 22:03 Dose: 10 mg Potassium Chloride (Klor-Con M20) 40 meq PO ONETIME ONE Stop: 01/11/17 13:50 Last Admin: 01/11/17 14:10 Dose: 40 meq Sodium Chloride (Sodium Chloride 0.9%) 500 ml IRR ASDIRECTED STA Stop: 01/09/17 17:13 Last Admin: 01/09/17 17:27 Dose: Not Given Tramadol HCl (Ultram) 50 mg PO QID [facility] Last Admin: 01/06/17 14:16 Dose: 50 mg Warfarin Sodium (Coumadin) 4 mg PO ONETIME ONE Stop: 01/09/17 08:11 Last Admin: 01/09/17 08:20 Dose: 4 mg Warfarin Sodium (Coumadin) 1 mg PO ONETIME ONE Stop: 01/10/17 21:01 Last Admin: 01/10/17 20:03 Dose: 1 mg - Exam General: Alert, Oriented HEENT: Pupils Equal, Pupils Reactive Neck: Supple, Trachea Midline Lungs: Clear to Auscultation Cardiovascular: Regular Rate GI/Abdominal Exam: Soft, Non-Tender, No Organomegaly, No Distention Extremities: Normal Inspection - Problem List Review Problem List Initiated/Reviewed/Updated: Yes - My Orders Last 24 Hours: My Active Orders 01/11/17 12:00 amLODIPine [Norvasc] 5 mg PO DAILY 01/11/17 13:50 Bisacodyl [Dulcolax] 10 mg RECTAL DAILY PRN - Plan Plan:: Assessment: #1. Fevers, elevated lactate acid level, elevated WBC, blood cultures are growing group B strep pneumonia attributed to his sepsis bacteremia which he previously had with group B strep as well. -Sensitivities still pending. -Prescription for 6 weeks of IV vancomycin has been sent to [facility]. -Patient will continue on IV vancomycin throughout admission. #2. UTI with few WBC, few bacteria, negative for leuk esterase and negative for nitrates. -Currently on IV vancomycin for his group B strep bacteremia. This should cover for his UTI as well. #3. mild sacral skin breakdown of the right gluteal fold continue to watch and ensure proper skin care/wound care management is taking place #4. elevated BUN secondary to mild CHRISTY due to dehydration -Kidney function continues to improve. #5. History of atrial fibrillation with current INR being subtherapeutic -INR this morning was 1.45. He'll receive his 4 mg dose of warfarin at bedtime tonight and we'll recheck his INR in the morning. #6. Hypertension -We'll be adding amlodipine 5 mg by mouth see if that controls his blood pressure if it does not then we will increase the amlodipine #7. Constipation -adding a stool softener to help the patient in terms of his constipation. <Nato Clemente - Last Filed: 01/11/17 17:21> - Patient Data Vitals - Most Recent: Last Vital Signs Temp 37.0 C 01/11/17 16:00 Pulse 63 01/11/17 16:00 Resp 16 01/11/17 16:00 BP 190/95 H 01/11/17 16:00 Pulse Ox 95 01/11/17 16:00 I&O - Last 24 Hours: Intake & Output 01/11/17 01/11/17 01/11/17 06:59 14:59 22:59 Intake Total 100 500 710 Output Total 1226 Balance -1126 500 710 Lab Results Last 24 Hours: Laboratory Results - last 24 hr 01/11/17 01/11/17 01/11/17 Range/Units 05:30 05:30 05:30 WBC 6.72 (4.0-11.0) K/uL RBC 3.52 L (4.50-5.90) M/uL Hgb 10.8 L (13.0-17.0) g/dL Hct 32.6 L (38.0-50.0) % MCV 92.6 (80.0-98.0) fL MCH 30.7 (27.0-32.0) pg MCHC 33.1 (31.0-37.0) g/dL RDW Std Deviation 47.6 (28.0-62.0) fl RDW Coeff of Donovan 14 (11.0-15.0) % Plt Count 194 (150-400) K/uL MPV 9.90 (7.40-12.00) fL Neut % (Auto) 68.6 (48.0-80.0) % Lymph % (Auto) 15.0 L (16.0-40.0) % Morton % (Auto) 12.6 (0.0-15.0) % Eos % (Auto) 3.7 (0.0-7.0) % Baso % (Auto) 0.1 (0.0-1.5) % Neut # (Auto) 4.6 (1.4-5.7) K/uL Lymph # (Auto) 1.0 (0.6-2.4) K/uL Morton # (Auto) 0.9 H (0.0-0.8) K/uL Eos # (Auto) 0.3 (0.0-0.7) K/uL Baso # (Auto) 0.0 (0.0-0.1) K/uL Nucleated RBC % 0.0 /100WBC Nucleated RBCs # 0 K/uL INR 1.75 H (0.86-1.11) Sodium 141 (136-146) mmol/L Potassium 3.1 L (3.5-5.1) mmol/L Chloride 104 (98-110) mmol/L Carbon Dioxide 27 (21-31) mmol/L BUN 25 H (6.0-23.0) mg/dL Creatinine 1.1 (0.6-1.5) mg/dL Est Cr Clr Drug Dosing 49.24 mL/min Estimated GFR (MDRD) > 60.0 ml/min Glucose 102 (60-110) mg/dL Calcium 8.7 L (8.8-10.8) mg/dL Manuel Results Last 24 Hours: Microbiology 01/07/17 10:33 Aerobic Blood Culture - Preliminary Blood - Venous - Lab Draw NO GROWTH AFTER 4 DAYS Anaerobic Blood Culture - Preliminary NO GROWTH AFTER 4 DAYS 01/07/17 10:23 Aerobic Blood Culture - Preliminary Blood - Venous NO GROWTH AFTER 4 DAYS Anaerobic Blood Culture - Preliminary NO GROWTH AFTER 4 DAYS Med Orders - Current: Current Medications Acetaminophen (Tylenol) 650 mg PO Q4H PRN PRN Reason: Pain/Fever Last Admin: 01/11/17 03:22 Dose: 650 mg Acetaminophen (Tylenol) 650 mg PO TID PENDING SALE TO [facility] Last Admin: 01/11/17 14:10 Dose: 650 mg Amlodipine Besylate (Norvasc) 5 mg PO DAILY [facility] Last Admin: 01/11/17 12:46 Dose: 5 mg Bisacodyl (Dulcolax) 10 mg RECTAL DAILY PRN PRN Reason: Constipation Last Admin: 01/11/17 14:11 Dose: 10 mg Furosemide (Lasix) 80 mg PO DAILY [facility] Last Admin: 01/11/17 07:59 Dose: 80 mg Sodium Chloride (Normal Saline) 1,000 mls @ 75 mls/hr IV ASDIRECTED PENDING SALE TO [facility] Last Admin: 01/07/17 00:12 Dose: 75 mls/hr Vancomycin HCl 1,500 mg/ (Sodium Chloride) 500 mls @ 250 mls/hr IV Q24H PENDING SALE TO [facility] Last Admin: 01/11/17 07:41 Dose: 250 mls/hr Lidocaine HCl (Xylocaine 2% Jelly) 1 ml .XX Q4H PRN PRN Reason: PAIN Last Admin: 01/09/17 20:29 Dose: 1 applic Lisinopril (Prinivil) 20 mg PO DAILY [facility] Last Admin: 01/11/17 08:00 Dose: 20 mg Sodium Chloride (Saline Flush) 10 ml FLUSH ASDIRECTED PRN PRN Reason: Keep Vein Open Sodium Chloride (Saline Flush) 2.5 ml FLUSH ASDIRECTED PRN PRN Reason: Keep Vein Open Tramadol HCl (Ultram) 50 mg PO QID PENDING SALE TO [facility] Last Admin: 01/11/17 12:29 Dose: 50 mg Vancomycin HCl (Pharmacy To Dose - Vancomycin) 1 dose .XX ASDIRECTED PENDING SALE TO [facility] Warfarin Sodium (Coumadin) 4 mg PO BEDTIME [facility]ENDING SALE TO [facility] Last Admin: 01/10/17 20:03 Dose: 4 mg Discontinued Medications Acetaminophen (Tylenol) 650 mg PO NOW ONE Stop: 01/05/17 21:45 Last Admin: 01/05/17 22:35 Dose: 650 mg Levofloxacin/Dextrose 500 mg/ (Premix) 100 mls @ 100 mls/hr IV ONETIME ONE Stop: 01/06/17 01:47 Last Admin: 01/06/17 01:06 Dose: 100 mls/hr Sodium Chloride (Normal Saline) 500 mls @ 50 mls/hr IV ASDIRECTED PENDING SALE TO [facility] Last Infusion: 01/07/17 23:30 Dose: Infused Ketorolac Tromethamine (Toradol) 30 mg IVPUSH ONETIME ONE Stop: 01/06/17 00:41 Last Admin: 01/06/17 01:13 Dose: Not Given Ketorolac Tromethamine (Toradol) 30 mg IVPUSH ONETIME ONE Stop: 01/06/17 00:41 Last Admin: 01/06/17 01:05 Dose: 30 mg Lidocaine HCl (Lidocaine 5%) 1 gm TOP Q4H PRN PRN Reason: Pain Lisinopril (Prinivil) 10 mg PO DAILY [facility]ALE TO [facility] Last Admin: 01/10/17 08:55 Dose: 10 mg Lisinopril (Prinivil) 5 mg PO ONETIME ONE Stop: 01/10/17 14:18 Last Admin: 01/10/17 14:30 Dose: 5 mg Lisinopril (Prinivil) 10 mg PO ONETIME ONE Stop: 01/10/17 21:40 Last Admin: 01/10/17 22:03 Dose: 10 mg Potassium Chloride (Klor-Con M20) 40 meq PO ONETIME ONE Stop: 01/11/17 13:50 Last Admin: 01/11/17 14:10 Dose: 40 meq Sodium Chloride (Sodium Chloride 0.9%) 500 ml IRR ASDIRECTED STA Stop: 01/09/17 17:13 Last Admin: 01/09/17 17:27 Dose: Not Given Tramadol HCl (Ultram) 50 mg PO QID PENDING SALE TO [facility] Last Admin: 01/06/17 14:16 Dose: 50 mg Warfarin Sodium (Coumadin) 4 mg PO ONETIME ONE Stop: 01/09/17 08:11 Last Admin: 01/09/17 08:20 Dose: 4 mg Warfarin Sodium (Coumadin) 1 mg PO ONETIME ONE Stop: 01/10/17 21:01 Last Admin: 01/10/17 20:03 Dose: 1 mg - My Orders Last 24 Hours: My Active Orders 01/11/17 09:00 Lisinopril [Prinivil] 20 mg PO DAILY - Free Text/Narrative Note: Dr. Jazzy Clemente MD notes: I have examined this patient today. I have evaluated his data and I have discussed him in detail with Dr. Rivas. I concur with his assessment and plan for his care.
[2017-01-11] MEDS: amLODIPine 5 MG Tab PO SCH (19:25)
[2017-01-11] MEDS: Warfarin 2 MG Tab PO SCH (20:42)
[2017-01-12 05:27] LABS: CHLORIDE,CL 103 mmol/L (98-110); SODIUM,NA 141 mmol/L (136-146)
[2017-01-12] MEDS: Acetaminophen 325 MG Tab PO SCH ×2 (06:37→14:39)
[2017-01-12] MEDS: traMADol 50 MG Tab PO SCH ×2 (06:38→12:46)
[2017-01-12] MEDS: amLODIPine 5 MG Tab PO SCH (08:18)
[2017-01-12] MEDS: Furosemide 80 MG Tab PO SCH (08:19)
[2017-01-12] MEDS: Lisinopril 10 MG Tab PO SCH (08:19)
--- NOTE | 2017-01-12 09:44 | US ---
EXAMINATION: Fluoro and ultrasound guided right-sided PICC line placement. HISTORY: Long-term antibiotics. TECHNIQUE/FINDINGS: After written informed consent was obtained from the patient using ultrasound a nd Fluoro guidance under aseptic conditions utilizing 1% lidocaine as local anesthesia right basilic vein was accessed and double lumen 5 Tamazight PICC catheter was deployed with its tip in the distal s uperior vena cava. The catheter flushes and withdraws blood well. The catheter is flushed with the diluted heparin. The catheter secured well. IMPRESSION: Successful Fluoro and ultrasound guided PICC line placement.
[2017-01-12] MEDS: Acetaminophen 325 MG Tab PO PRN (10:27)
[2017-01-12 13:41] VITALS: BP 158/82
--- NOTE | 2017-01-12 17:15 | ECHO ---
EXAM DATE: 01/06/17 PATIENT'S AGE: 87 The echocardiogram report can be seen in this patient's EMR (Electronic Medical Record) in the Reports section. The report has also been scanned into PACS. EVAN
--- NOTE | 2017-01-14 00:01 | PCM.DCSUM1 ---
Discharge Summary - Hospital Course Free Text/Narrative:: Discharge Summary Date of admission: 01/06/2017 Date of discharge: 01/12/2017 Admitting diagnosis: #1. Fevers, elevated lactate acid level, elevated WBC, preliminary blood cultures growing gram-positive organisms all contributing to sepsis bacteremia likely group B strep as the patient has had this in the past. #2. Elevated lactate acid level #3. Mildly elevated BNP of 399 #4. UTI with few WBC, few bacteria, negative for leuk esterase and negative for nitrates. Discharge diagnoses: #1. Group B strep induced sepsis bacteremia patient on long-term IV vancomycin with PICC line #2. UTI with few WBC few bacteria improving #3. Mild sacral skin breakdown/ulcer #4. Mild CHRISTY improving #5. Hypertension #6. History of atrial fibrillation on Coumadin therapy Consultations: Radiology Procedures: PICC line placement Hospitalization course: Patient was admitted on 01/06/2017 secondary to elevated lactate acid level fevers tachypnea tachycardia hypertension all likely presumed to be group B strep which the patient had in the past in August of this year. The patient was immediately started on IV vancomycin. Along with fluids patient was also noted to have cellulitis/erythema of his right thigh which was bothering him slightly. The patient was also noted to have a minor UTI as a possible source of infection. The course of his hospitalization the patient did continue to get better his blood cultures initial set grew out gram-positive in chains which indicated likely group B strep. Due to the difficulty in localizing the source of the group B streptococcus infection patient was continued on IV vancomycin his lactate acid level improved he was continued to be given fluids. She is mildly Improved. The patient maintained good by mouth throughout his stay. He did have a couple days of constipation for which she received a stool softener that alleviated his symptoms. His INR did drop due to the fact that we did initially stop his home medication of Coumadin however after restarting his INR went back up to therapeutic level by the time of discharge. His high blood pressure was initially maintained on the lisinopril however as his stay continued his blood pressure continued to rise to the point at which it was determined to add a second hypertensive medication as such amlodipine was added initially 5 mg daily after which it was increased to 10 mg daily to help further control his hypertension. The patient had a second set of blood cultures drawn which by 01/09/2017 were negative he had a PICC line placed on 01/09/2017. However due to the fact of the group home was unable to safely take him due to staffing issues at the group home the patient was required to stay over the weekend. By 01/12/2017 the patient was stable the group home was able to take him his IV vancomycin was ready for pickup and the patient was then discharged to the group home. Disposition on discharge: [facility] Condition on discharge: Stable, taking by mouth, hypertension better control, nontender tachycardic nontachypneic, with a clean PICC line withsigns of any cellulitis-type infection around the PICC line with his IV antibiotics vancomycin ready. Discharge medications: Patient was sent home on a continuation of his home medications along with IV vancomycin for 6 weeks as well as amlodipine 10 mg as a second antihypertensive for his hypertension Follow-up instructions:patient will be followed up by Dr. Benito at the group home - Discharge Data Discharge Date: 01/12/17 Discharge Disposition: DC/Tfer to Medicaid [facility] Condition: Good - Patient Instructions Diet: Regular Diet as Tolerated Activity: As Tolerated Driving: Do Not Drive Showering/Bathing: May Shower Notify Provider of: Fever, Increased Pain, Swelling and Redness, Drainage, Nausea and/or Vomiting - Discharge Plan Prescriptions/Med Rec: Vancomycin HCl/D5W [Vancomycin 1.5 Gram/250 ml-D5w] 1.5 gm IV DAILY 48 Days Home Medications: Home Meds Acetaminophen [Tylenol] 650 mg PO TID 02/26/15 [History] busPIRone HCl [Buspirone HCl] 15 mg PO BID 02/26/15 [History] Bisacodyl 10 mg RC DAILY PRN 05/01/15 [History] Calcium Citrate/Vitamin D3 [Calcium Cit-Vit D 315-200] 1 each PO BID 05/01/15 [ History] Cholecalciferol (Vitamin D3) [D3-2000] 2,000 unit PO DAILY 05/01/15 [History] Docusate Sodium [Colace] 100 mg PO BID 05/01/15 [History] Multivitamin [Daily Dalton] 1 each PO DAILY 05/01/15 [History] Polyethylene Glycol 3350 [MiraLAX] 17 gm PO BID PRN 05/01/15 [History] Lisinopril [Prinivil] 10 mg PO DAILY 06/27/15 [History] Acetaminophen [Tylenol] 650 mg PO Q4H PRN 01/13/16 [History] Citalopram [Celexa] 20 mg PO DAILY 01/13/16 [History] Warfarin [Coumadin] 4 mg PO BEDTIME 01/13/16 [History] Alum Hydrox/Mag Hydrox/Simeth [Mag-Al Plus] 15 ml PO QID PRN 08/17/16 [History] Furosemide [Lasix] 80 mg PO DAILY 08/17/16 [History] Potassium Chloride [Klor-Con M20] 20 meq PO DAILY 08/18/16 [History] traMADol [Ultram] 50 mg PO QID #30 tablet 08/21/16 [Rx] Vancomycin HCl/D5W [Vancomycin 1.5 Gram/250 ml-D5w] 1.5 gm IV DAILY 48 Days 09/22 [Rx] Patient Handouts: Vancomycin injection Referrals: Jovi Benito MD [Primary Care Provider] - 01/15/17 - Discharge Summary/Plan Comment DC Time >30 min.: No - Patient Data Vitals - Most Recent: Last Vital Signs Temp 36.1 C 01/12/17 12:00 Pulse 89 01/12/17 12:00 Resp 20 01/12/17 12:00 BP 158/82 H 01/12/17 12:00 Pulse Ox 94 L 01/12/17 12:00 Weight - Most Recent: 104.5 kg Med Orders - Current: Current Medications Discontinued Medications Acetaminophen (Tylenol) 650 mg PO NOW ONE Stop: 01/05/17 21:45 Last Admin: 01/05/17 22:35 Dose: 650 mg Acetaminophen (Tylenol) 650 mg PO Q4H PRN PRN Reason: Pain/Fever Last Admin: 01/12/17 10:27 Dose: 650 mg Acetaminophen (Tylenol) 650 mg PO TID [facility] Last Admin: 01/12/17 14:39 Dose: Not Given Amlodipine Besylate (Norvasc) 5 mg PO DAILY [facility] Last Admin: 01/11/17 12:46 Dose: 5 mg Amlodipine Besylate (Norvasc) 10 mg PO DAILY [facility] Last Admin: 01/12/17 08:18 Dose: 10 mg Bisacodyl (Dulcolax) 10 mg RECTAL DAILY PRN PRN Reason: Constipation Last Admin: 01/11/17 14:11 Dose: 10 mg Furosemide (Lasix) 80 mg PO DAILY [facility] Last Admin: 01/12/17 08:19 Dose: 80 mg Sodium Chloride (Normal Saline) 1,000 mls @ 75 mls/hr IV ASDIRECTED [facility] Last Admin: 01/07/17 00:12 Dose: 75 mls/hr Levofloxacin/Dextrose 500 mg/ (Premix) 100 mls @ 100 mls/hr IV ONETIME ONE Stop: 01/06/17 01:47 Last Admin: 01/06/17 01:06 Dose: 100 mls/hr Vancomycin HCl 1,500 mg/ (Sodium Chloride) 500 mls @ 250 mls/hr IV Q24H [facility] Last Infusion: 01/12/17 10:20 Dose: Infused Sodium Chloride (Normal Saline) 500 mls @ 50 mls/hr IV ASDIRECTED [facility] Last Infusion: 01/07/17 23:30 Dose: Infused Ketorolac Tromethamine (Toradol) 30 mg IVPUSH ONETIME ONE Stop: 01/06/17 00:41 Last Admin: 01/06/17 01:13 Dose: Not Given Ketorolac Tromethamine (Toradol) 30 mg IVPUSH ONETIME ONE Stop: 01/06/17 00:41 Last Admin: 01/06/17 01:05 Dose: 30 mg Lidocaine HCl (Lidocaine 5%) 1 gm TOP Q4H PRN PRN Reason: Pain Lidocaine HCl (Xylocaine 2% Jelly) 1 ml .XX Q4H PRN PRN Reason: PAIN Last Admin: 01/09/17 20:29 Dose: 1 applic Lisinopril (Prinivil) 10 mg PO DAILY [facility] Last Admin: 01/10/17 08:55 Dose: 10 mg Lisinopril (Prinivil) 5 mg PO ONETIME ONE Stop: 01/10/17 14:18 Last Admin: 01/10/17 14:30 Dose: 5 mg Lisinopril (Prinivil) 10 mg PO ONETIME ONE Stop: 01/10/17 21:40 Last Admin: 01/10/17 22:03 Dose: 10 mg Lisinopril (Prinivil) 20 mg PO DAILY [facility] Last Admin: 01/12/17 08:19 Dose: 20 mg Potassium Chloride (Klor-Con M20) 40 meq PO ONETIME ONE Stop: 01/11/17 13:50 Last Admin: 01/11/17 14:10 Dose: 40 meq Sodium Chloride (Saline Flush) 10 ml FLUSH ASDIRECTED PRN PRN Reason: Keep Vein Open Sodium Chloride (Saline Flush) 2.5 ml FLUSH ASDIRECTED PRN PRN Reason: Keep Vein Open Sodium Chloride (Sodium Chloride 0.9%) 500 ml IRR ASDIRECTED STA Stop: 01/09/17 17:13 Last Admin: 01/09/17 17:27 Dose: Not Given Tramadol HCl (Ultram) 50 mg PO QID [facility] Last Admin: 01/06/17 14:16 Dose: 50 mg Tramadol HCl (Ultram) 50 mg PO QID [facility] Last Admin: 01/12/17 12:46 Dose: 50 mg Vancomycin HCl (Pharmacy To Dose - Vancomycin) 1 dose .XX ASDIRECTED R[facility] Warfarin Sodium (Coumadin) 4 mg PO BEDTIME [facility] Last Admin: 01/11/17 20:42 Dose: 4 mg Warfarin Sodium (Coumadin) 4 mg PO ONETIME ONE Stop: 01/09/17 08:11 Last Admin: 01/09/17 08:20 Dose: 4 mg Warfarin Sodium (Coumadin) 1 mg PO ONETIME ONE Stop: 01/10/17 21:01 Last Admin: 01/10/17 20:03 Dose: 1 mg *Q Meaningful Use (DIS) - VTE *Q VTE Criteria *Q: VTE Mechanical Contraindications *Q: At Risk for Falls - Stroke *Q Stroke Criteria *Q: - AMI *Q AMI Criteria *Q:
== END 2017-01-12 13:50 | DRG 871 ==
LOC: MW.ED 21:02 → MW.MS 01-06 00:48
PROVIDERS: ADMIT Internal Medicine; ATTEND Internal Medicine
PROC: 02HV33Z Insertion of Infusion Device into Superior Vena Cava, Percutaneous Approach (ICD-10-PCS; principal; 2017-01-09)
DX: J40 Bronchitis, not specified as acute or chronic (principal); R50.9 Fever, unspecified; R74.0 Nonspecific elevation of levels of transaminase and lactic acid dehydrogenase [LDH]; A41.9 Sepsis, unspecified organism; J15.3 Pneumonia due to streptococcus, group B; I50.20 Unspecified systolic (congestive) heart failure; N39.0 Urinary tract infection, site not specified; F41.9 Anxiety disorder, unspecified; N17.9 Acute kidney failure, unspecified; L03.115 Cellulitis of right lower limb; I13.0 Hypertensive heart and chronic kidney disease with heart failure and stage 1 through stage 4 chronic kidney disease, or unspecified chronic kidney disease; L98.411 Non-pressure chronic ulcer of buttock limited to breakdown of skin; I48.91 Unspecified atrial fibrillation; I25.10 Atherosclerotic heart disease of native coronary artery without angina pectoris; N18.3 Chronic kidney disease, stage 3 (moderate); K59.00 Constipation, unspecified; R79.1 Abnormal coagulation profile; Z79.01 Long term (current) use of anticoagulants; Z79.899 Other long term (current) drug therapy; Z88.0 Allergy status to penicillin; Z91.041 Radiographic dye allergy status
CPT/HCPCS: 36415; 71010; 74020; 80053; 82150; 83605; 83690; 83880; 84484; 85025; 85610; 87040 ×2; 93005; 96361; 99285; A9270; J7040; 36569; 70486; 70486-26; 71250; 71250-26; 74176; 74176-26; 76937; 76937-26; 77001; 77001-26; 80048; 80202; 81001; 87077; 87086; 87186; 93306; 96360; 96374; 96375; 99283; J1885; J1956; J3370

== ENCOUNTER 2017-06-11 05:29 | Emergency (ER) | payer MEDICARE, BC ==
--- NOTE | 2017-06-11 05:27 | EDM.PDOC ---
ED HPI GENERAL MEDICAL PROBLEM - General Stated Complaint: ABDOMINAL PAIN Time Seen by Provider: 06/11/17 05:23 Source of Information: Reports: Patient - History of Present Illness INITIAL COMMENTS - FREE TEXT/NARRATIVE: HISTORY AND PHYSICAL: History of present illness: [Patient arrives via [facility] reported some abdominal pain, the patient does not complain of any abdominal pain on arrival states she has had cough for several days, states he is 88 years old and feels as if he is in his last days of life. And he had requested to see a physician. He has no particular complaint at this time other than 2 days of cough and some bilateral hand pain that began with a cough. Patient is in no distress denies fever nausea vomiting diarrhea constipation chest pain shortness breath headache dizziness or palpitation no bowel or urine symptoms Apparently on nursing report is reported to have loose stools over the last day Patient is an unreliable historian but polite and cooperative ] Review of systems: As per history of present illness and below otherwise all systems reviewed and negative. Past medical history: As per history of present illness and as reviewed below otherwise noncontributory. Surgical history: As per history of present illness and as reviewed below otherwise noncontributory. Social history: No reported history of drug or alcohol abuse. Family history: As per history of present illness and as reviewed below otherwise noncontributory. Physical exam: HEENT: Atraumatic, normocephalic, pupils reactive, negative for conjunctival pallor or scleral icterus, mucous membranes moist, throat clear, neck supple, nontender, trachea midline. Lungs: Clear to auscultation, breath sounds equal bilaterally, chest nontender. Heart: S1S2, regular, negative for clicks, rubs, or JVD. Abdomen: Soft, nondistended, nontender. Negative for masses or hepatosplenomegaly. Negative for costovertebral tenderness. Pelvis: Stable nontender. Genitourinary: Deferred. Rectal: Deferred. Extremities: Atraumatic, negative for cords or calf pain. Neurovascular unremarkable. Neuro: Awake, alert, oriented. Cranial nerves II through XII unremarkable. Cerebellum unremarkable. Motor and sensory unremarkable throughout. Exam nonfocal. Diagnostics: [CBC CMP UA cardiac enzymes EKG Chest 1 view ] Therapeutics: [Continue current medications] Impression: [Cough reported by patient, no cough witnessed in emergency room on extended exam Complaint of bilateral hand pain no pain behaviors no further complaint Chronic history of baseline ] Definitive disposition and diagnosis as appropriate pending reevaluation and review of above. abdomen Pain Score (Numeric/FACES): 7 both hands Pain Score (Numeric/FACES): 7 - Related Data Allergies Allergy/AdvReac Type Severity Reaction Status Date / Time Iodinated Contrast- Oral and Allergy Anaphylactic Verified 06/11/17 05:25 IV Dye Shock [Iodinated Contrast Media - IV Dye] Penicillins Allergy Anaphylactic Verified 06/11/17 05:25 Shock Home Meds: Home Meds Acetaminophen [Tylenol] 650 mg PO TID 02/26/15 [History] busPIRone HCl [Buspirone HCl] 15 mg PO BID 02/26/15 [History] Bisacodyl 10 mg RC DAILY PRN 05/01/15 [History] Calcium Citrate/Vitamin D3 [Calcium Cit-Vit D 315-200] 1 each PO BID 05/01/15 [ History] Cholecalciferol (Vitamin D3) [D3-2000] 2,000 unit PO DAILY 05/01/15 [History] Docusate Sodium [Colace] 100 mg PO BID 05/01/15 [History] Multivitamin [Daily Dalton] 1 each PO DAILY 05/01/15 [History] Polyethylene Glycol 3350 [MiraLAX] 17 gm PO BID PRN 05/01/15 [History] Lisinopril [Prinivil] 10 mg PO DAILY 06/27/15 [History] Acetaminophen [Tylenol] 650 mg PO Q4H PRN 01/13/16 [History] Citalopram [Celexa] 40 mg PO DAILY 01/13/16 [History] Warfarin [Coumadin] 4 mg PO BEDTIME 01/13/16 [History] Alum Hydrox/Mag Hydrox/Simeth [Mag-Al Plus] 15 ml PO ASDIRECTED PRN 08/17/16 [ History] Furosemide [Lasix] 80 mg PO DAILY 08/17/16 [History] Potassium Chloride [Klor-Con M20] 20 meq PO DAILY 08/18/16 [History] traMADol [Ultram] 50 mg PO QID #30 tablet 08/21/16 [Rx] Past Medical History HEENT History: Reports: Macular Degeneration Cardiovascular History: Reports: Afib, Heart Failure, Hypertension, Other (See Below) Other Cardiovascular History: On Coumadin Respiratory History: Reports: Other (See Below) Other Respiratory History: Hx of Acute upper respiratory tract infection Gastrointestinal History: Reports: None, Other (See Below) (Cholelithiasis without cholecystitis) Genitourinary History: Reports: Chronic Renal Insuffiency (Urinary obstruction) , Urinary Incontinence Other Genitourinary History: stage 3 kidney disease Musculoskeletal History: Reports: Osteoarthritis Neurological History: Reports: None Psychiatric History: Reports: Anxiety Endocrine/Metabolic History: Reports: None Hematologic History: Reports: None Immunologic History: Reports: None Oncologic (Cancer) History: Reports: Bladder Other Oncologic History: kidney ca Other Dermatologic History: parasthesia of skin - Infectious Disease History Infectious Disease History: Reports: None, Other (See Below) (Previous past medical history of group B strep bacteremia admissions) - Past Surgical History Musculoskeletal Surgical History: Reports: Hip Replacement, Other (See Below) Social & Family History - Family History Family Medical History: Noncontributory Cardiac: Reports: Hypertension, [place] - Tobacco Use Smoking Status *Q: Never Smoker Second Hand Smoke Exposure: No - Caffeine Use Caffeine Use: Reports: Coffee, Soda - Recreational Drug Use Recreational Drug Use: No ED ROS GENERAL - Review of Systems Review Of Systems: ROS reveals no pertinent complaints other than HPI. ED EXAM, GENERAL - Physical Exam Exam: See Below Course - Vital Signs Last Recorded V/S: Last Vital Signs Temp 98.9 F 06/11/17 05:29 Pulse 85 06/11/17 05:29 Resp 20 06/11/17 05:29 BP 169/85 H 06/11/17 05:29 Pulse Ox 96 06/11/17 05:29 - Orders/Labs/Meds Orders: Active Orders 24 hr Category Date Time Status EKG Documentation Completion [RC] STAT Care 06/11/17 05:02 Active Chest 1V Frontal [CR] Stat Exams 06/11/17 06:24 Taken CKMB [CHEM] Stat Lab 06/11/17 05:30 Results CREATINE KINASE,CK [CHEM] Stat Lab 06/11/17 05:30 Results Labs: Laboratory Tests 06/11/17 06/11/17 06/11/17 Range/Units 05:30 05:30 05:30 WBC 6.96 (4.0-11.0) K/uL RBC 3.96 L (4.50-5.90) M/uL Hgb 12.4 L (13.0-17.0) g/dL Hct 37.8 L (38.0-50.0) % MCV 95.5 (80.0-98.0) fL MCH 31.3 (27.0-32.0) pg MCHC 32.8 (31.0-37.0) g/dL RDW Std Deviation 58.2 (28.0-62.0) fl RDW Coeff of Donovan 17 H (11.0-15.0) % Plt Count 213 (150-400) K/uL MPV 9.50 (7.40-12.00) fL Neut % (Auto) 80.2 H (48.0-80.0) % Lymph % (Auto) 11.9 L (16.0-40.0) % Victoria % (Auto) 6.2 (0.0-15.0) % Eos % (Auto) 1.4 (0.0-7.0) % Baso % (Auto) 0.3 (0.0-1.5) % Neut # (Auto) 5.6 (1.4-5.7) K/uL Lymph # (Auto) 0.8 (0.6-2.4) K/uL Victoria # (Auto) 0.4 (0.0-0.8) K/uL Eos # (Auto) 0.1 (0.0-0.7) K/uL Baso # (Auto) 0.0 (0.0-0.1) K/uL Nucleated RBC % 0.0 /100WBC Nucleated RBCs # 0 K/uL Sodium 141 (136-146) mmol/L Potassium 4.4 (3.5-5.1) mmol/L Chloride 107 (98-110) mmol/L Carbon Dioxide 22 (21-31) mmol/L BUN 34 H (6.0-23.0) mg/dL Creatinine 1.9 H (0.6-1.5) mg/dL Est Cr Clr Drug Dosing TNP Estimated GFR (MDRD) 33.6 ml/min Glucose 137 H (60-110) mg/dL Calcium 10.3 (8.8-10.8) mg/dL Total Bilirubin 1.4 (0.1-1.5) mg/dL AST 20 (5-40) IU/L ALT 11 (8-54) IU/L Alkaline Phosphatase 89 (40-150) Creatine Kinase 15 (9-236) IU/L Troponin I < 0.10 (0.0-0.29) NG/ML B-Natriuretic Peptide (<100) PG/ML Total Protein 7.2 (6.0-8.0) g/dL Albumin 3.9 (3.4-4.8) g/dL Globulin 3.3 (2.0-3.5) g/dL Albumin/Globulin Ratio 1.2 L (1.3-2.8) Amylase 36 (10-90) U/L Lipase < 9 (7-80) U/L Urine Color Urine Appearance Urine pH (5.0-8.0) Ur Specific [place] (1.001-1.035) Urine Protein (NEGATIVE) mg/dL Urine Glucose (UA) (NEGATIVE) mg/dL Urine Ketones (NEGATIVE) mg/dL Urine Occult Blood (NEGATIVE) Urine Nitrite (NEGATIVE) Urine Bilirubin (NEGATIVE) Urine Urobilinogen (<2.0) EU/dL Ur Leukocyte Esterase (NEGATIVE) Urine RBC (0-2/HPF) Urine WBC (0-5/HPF) Ur Epithelial Cells (NONE-FEW) Urine Bacteria (NEGATIVE) 06/11/17 06/11/17 Range/Units 05:30 05:45 WBC (4.0-11.0) K/uL RBC (4.50-5.90) M/uL Hgb (13.0-17.0) g/dL Hct (38.0-50.0) % MCV (80.0-98.0) fL MCH (27.0-32.0) pg MCHC (31.0-37.0) g/dL RDW Std Deviation (28.0-62.0) fl RDW Coeff of Donovan (11.0-15.0) % Plt Count (150-400) K/uL MPV (7.40-12.00) fL Neut % (Auto) (48.0-80.0) % Lymph % (Auto) (16.0-40.0) % Victoria % (Auto) (0.0-15.0) % Eos % (Auto) (0.0-7.0) % Baso % (Auto) (0.0-1.5) % Neut # (Auto) (1.4-5.7) K/uL Lymph # (Auto) (0.6-2.4) K/uL Victoria # (Auto) (0.0-0.8) K/uL Eos # (Auto) (0.0-0.7) K/uL Baso # (Auto) (0.0-0.1) K/uL Nucleated RBC % /100WBC Nucleated RBCs # K/uL Sodium (136-146) mmol/L Potassium (3.5-5.1) mmol/L Chloride (98-110) mmol/L Carbon Dioxide (21-31) mmol/L BUN (6.0-23.0) mg/dL Creatinine (0.6-1.5) mg/dL Est Cr Clr Drug Dosing Estimated GFR (MDRD) ml/min Glucose (60-110) mg/dL Calcium (8.8-10.8) mg/dL Total Bilirubin (0.1-1.5) mg/dL AST (5-40) IU/L ALT (8-54) IU/L Alkaline Phosphatase (40-150) Creatine Kinase (9-236) IU/L Troponin I (0.0-0.29) NG/ML B-Natriuretic Peptide 1057 H (<100) PG/ML Total Protein (6.0-8.0) g/dL Albumin (3.4-4.8) g/dL Globulin (2.0-3.5) g/dL Albumin/Globulin Ratio (1.3-2.8) Amylase (10-90) U/L Lipase (7-80) U/L Urine Color YELLOW Urine Appearance SLT CLOUDY Urine pH 6.0 (5.0-8.0) Ur Specific [place] 1.015 (1.001-1.035) Urine Protein NEGATIVE (NEGATIVE) mg/dL Urine Glucose (UA) NEGATIVE (NEGATIVE) mg/dL Urine Ketones NEGATIVE (NEGATIVE) mg/dL Urine Occult Blood NEGATIVE (NEGATIVE) Urine Nitrite NEGATIVE (NEGATIVE) Urine Bilirubin NEGATIVE (NEGATIVE) Urine Urobilinogen 0.2 (<2.0) EU/dL Ur Leukocyte Esterase TRACE (NEGATIVE) Urine RBC 0-2 (0-2/HPF) Urine WBC 1-2 (0-5/HPF) Ur Epithelial Cells MODERATE (NONE-FEW) Urine Bacteria 2+ H (NEGATIVE) Departure - Departure Time of Disposition: 06:46 Disposition: DC/Tfer to [facility] Condition: Good Clinical Impression: Encounter for medical screening examination - Discharge Information Additional Instructions: The following information is given to patients seen in the emergency department who are being discharged to home. This information is to outline your options for follow-up care. We provide all patients seen in our emergency department with a follow-up referral. The need for follow-up, as well as the timing and circumstances, are variable depending upon the specifics of your emergency department visit. If you don't have a primary care physician on staff, we will provide you with a referral. We always advise you to contact your personal physician following an emergency department visit to inform them of the circumstance of the visit and for follow-up with them and/or the need for any referrals to a consulting specialist. The emergency department will also refer you to a specialist when appropriate. This referral assures that you have the opportunity for follow-up care with a specialist. All of these measure are taken in an effort to provide you with optimal care, which includes your follow-up. Under all circumstances we always encourage you to contact your private physician who remains a resource for coordinating your care. When calling for follow-up care, please make the office aware that this follow-up is from your recent emergency room visit. If for any reason you are refused follow-up, please contact the [facility] emergency department at and asked to speak to the emergency department charge nurse. - My Orders Last 24 Hours: My Active Orders 06/11/17 05:02 EKG Documentation Completion [RC] STAT 06/11/17 05:30 CKMB [CHEM] Stat CREATINE KINASE,CK [CHEM] Stat 06/11/17 06:24 Chest 1V Frontal [CR] Stat - Assessment/Plan Last 24 Hours: My Active Orders 06/11/17 05:02 EKG Documentation Completion [RC] STAT 06/11/17 05:30 CKMB [CHEM] Stat CREATINE KINASE,CK [CHEM] Stat 06/11/17 06:24 Chest 1V Frontal [CR] Stat
[2017-06-11 06:02] LABS: CHLORIDE,CL 107 mmol/L (98-110); SODIUM,NA 141 mmol/L (136-146)
[2017-06-11 06:49] VITALS: BP 162/84
--- NOTE | 2017-06-11 09:17 | CR ---
EXAM DATE: 06/11/17 PATIENT'S AGE: 87 Patient: JAMES HURD Facility: [place], [place] Site . Site : [id number] Study: XRay Chest [id number]/4/2018 6:37:11 AM Ordering Physician: Radha Atkinson Final Report: INDICATION: COUGH HISTORY: Cough. COMPARISON: 01/05/2017. TECHNIQUE: Chest one-view portable. FINDINGS: Probable intra-articular bodies at the right glenohumeral joint, stable. Heart size and pulmonary vasculature are within normal limits. There are reticular type opacities bilaterally, which may reflect scarring. There is no acute airspace disease. There is no pneumothorax. The central airway is normal. Lateral costophrenic sulci are sharp. Osteophytic spurring is present at the left glenohumeral joint, unchanged. IMPRESSION: 1. No acute airspace disease. 2. Stable exam when compared with 01/05/2017. Dictated by Darrius Leyva MD @ 06/11/2017 6:41:50 AM Dictated by: Darrius Leyva MD @ 06/11/2017 06:42:00 (Electronic Signature) Report Signed by Proxy. [facility]
== END 2017-06-11 06:48 ==
LOC: MW.ED 05:29
DX: R05 Cough (principal); M79.642 Pain in left hand; M79.641 Pain in right hand; I13.0 Hypertensive heart and chronic kidney disease with heart failure and stage 1 through stage 4 chronic kidney disease, or unspecified chronic kidney disease; N18.3 Chronic kidney disease, stage 3 (moderate); I50.9 Heart failure, unspecified; F41.9 Anxiety disorder, unspecified; Z79.899 Other long term (current) drug therapy; Z88.0 Allergy status to penicillin; Z91.041 Radiographic dye allergy status
CPT/HCPCS: 36415; 71045; 71045-26; 80053; 81001; 82150; 82550; 82553; 83690; 83880; 84484; 85025; 87804; 93005; 99284; 99284-25